=== PATIENT | male | born 1945 | race Caucasian/White ===

== ENCOUNTER 2016-05-31 21:30 | Observation (INO) | payer MEDICARE, MEDICAID ==
[2016-05-31 21:31] VITALS: BMI 29.9
[2016-05-31 22:05] LABS: BASO % 0.8 % (0.0-2.0); EOS # 0.1 K/uL (0.0-0.7); EOS % 3.2 % (0.0-4.0); HEMATOCRIT 37.5 % (35.0-51.0); LYMPH # 1.4 K/uL (1.0-4.3); LYMPH % 32.3 % (20.0-40.0); MEAN CELL VOLUME 77.2 fL (80.0-94.0); MEAN CORPUSCULAR HEMOGLOBIN 25.5 pg (27.0-31.0); MEAN CORPUSCULAR HGB CONC 33.1 g/dL (33.0-37.0); MEAN PLATELET VOLUME 8.7 fL (7.2-11.7); MONO # 0.3 K/uL (0.0-0.8); MONO % 7.5 % (0.0-10.0); NRBC % 0.1 % (0.0-2.0); RED CELL DISTRIBUTION WIDTH 15.4 % (11.5-14.5)
[2016-05-31 22:10] LABS: WHITE BLOOD COUNT 4.4 K/uL (4.8-10.8)
[2016-05-31 22:14] LABS: CHLORIDE 101 mmol/L (98-107); SODIUM 137 mmol/L (132-148)
[2016-05-31 22:15] LABS: INR 3.4; POTASSIUM 3.6 mmol/L (3.6-5.2)
[2016-05-31 22:17] LABS: ALB/GLOB RATIO 1.2 (1.0-2.1); ALKALINE PHOSPHATASE 80 U/L (38-126); AST/SGOT 20 U/L (17-59); BILIRUBIN,TOTAL 0.4 mg/dL (0.2-1.3); BLOOD UREA NITROGEN 16 mg/dL (9-20); CARBON DIOXIDE 22 mmol/L (22-30); GFR AFRICAN-AMERICAN > 60; TOTAL PROTEIN 7.3 g/dL (6.3-8.3)
[2016-05-31 22:18] LABS: ALT/SGPT 28 U/L (21-72); CALCIUM 8.5 mg/dl (8.6-10.4); GLUCOSE,RANDOM 121 mg/dL (75-110)
--- NOTE | 2016-05-31 22:41 | C.PDOC ---
History Of Present Illness Patient is a 70 year old male who presents to the ER with complaints of 8/10 chest pain that radiates to the right arm. Patient was brought in by EMS and was administered Aspirin and sublingual nitroglycerin [employer], which helped the patient's condition. Patient is currently on Coumadin for a history atrial fibrillation. Denies any nausea, vomiting, fever, or chills. Time Seen by Provider: 05/31/16 22:26 Chief Complaint (Nursing): Chest Pain History Per: Patient History/Exam Limitations: no limitations Onset/Duration Of Symptoms: Hrs Current Symptoms Are (Timing): Better (After Asprin and subligual nitroglycerin) Pain Scale Rating Of: 8 Associated Symptoms: denies: Nausea Additional History Per: EMS Past Medical History Reviewed: Historical Data, Nursing Documentation, Vital Signs Vital Signs: Last Vital Signs Temp 98.1 F 05/31/16 21:45 Pulse 81 05/31/16 21:45 Resp 20 05/31/16 21:45 BP 126/68 05/31/16 21:45 Pulse Ox 95 05/31/16 22:59 - Medical History PMH: Atrial Fibrillation, Back Problems (cervical radiculitis), Cardia Arrhythmia, CHF, HTN, Hypercholesterolemia, Hyperlipidemia Surgical History: Pacemaker (atrial ventricular) - [facility] Procedures INSERTION OF ENDOTRACHEAL AIRWAY INTO TRACHEA, VIA OPENING (04/21/15) RESPIRATORY VENTILATION, 24-96 CONSECUTIVE HOURS (04/21/15) Family History: States: Unknown Family Hx - Social History Hx Tobacco Use: No Hx Alcohol Use: No Hx Substance Use: No - Immunization History Hx Tetanus Toxoid Vaccination: No Hx Influenza Vaccination: Yes Hx Pneumococcal Vaccination: Yes Review Of Systems Except As Marked, All Systems Reviewed And Found Negative. Constitutional: Negative for: Fever, Chills Cardiovascular: Positive for: Chest Pain (Radiating to right arm). Negative for : Palpitations Respiratory: Negative for: Shortness of Breath Gastrointestinal: Negative for: Nausea, Vomiting Physical Exam - Physical Exam Appears: Non-toxic Skin: Normal Color, Warm, Dry Head: Atraumatic, Normacephalic Oral Mucosa: Moist Neck: Normal, Normal ROM Chest: Symmetrical, No Deformity, No Tenderness Cardiovascular: Rhythm Regular Respiratory: Normal Breath Sounds, No Accessory Muscle Use, No Rales, No Rhonchi , No Wheezing Gastrointestinal/Abdominal: Soft, No Tenderness, No Distention, No Guarding, No Rebound Neurological/Psych: Oriented x3, Normal Speech, Normal Cognition ED Course And Treatment - Laboratory Results Result Diagrams: 05/31/16 22:02 05/31/16 22:02 Lab Interpretation: Normal (trop neg.) ECG: Interpreted By Me ECG Rhythm: AV Paced (100) ECG Interpretation: Normal O2 Sat by Pulse Oximetry: 95 (Room air) Pulse Ox Interpretation: Normal - Radiology CXR: Interpreted by Me CXR Interpretation: Yes: No Acute Disease Progress Note: Chest X-ray and Blood work ordered and reviewed. Reevaluation Time: 22:40 Reassessment Condition: Improved - Physician Consult Information Outcome Of Conversation: 2230: d/w PMD Dr. Bill red to tele obs. Medical Decision Making Medical Decision Making: CP with relief by nitro, ? angina Disposition Doctor Will See Patient In The: Hospital Counseled Patient/Family Regarding: Studies Performed, Diagnosis - Disposition Disposition: HOSPITALIZED Disposition Time: 22:41 Condition: GOOD - Clinical Impression Clinical Impression: Precordial pain - Scribe Statement The provider has reviewed the documentation as recorded by the Scribkatia Gibbons All medical record entries made by the Scribe were at my direction and personally dictated by me. I have reviewed the chart and agree that the record accurately reflects my personal performance of the history, physical exam, medical decision making, and the department course for this patient. I have also personally directed, reviewed, and agree with the discharge instructions and disposition.
--- NOTE | 2016-05-31 22:45 | C.PDOC ---
History Of Present Illness Patient is a 70 year old male who presents to the ER with an 8/10 chest pain that radiates to the right arm. Patient was brought in by EMS and was administered Aspirin and sublingual nitroglycerin PTO, which helped the patient' s condition. Patient is currently on Coumadin for a history atrial fibrillation. Patient denies any nausea, vomiting, fever, or chills. Time Seen by Provider: 05/31/16 22:26 Chief Complaint (Nursing): Chest Pain History Per: Patient History/Exam Limitations: no limitations Onset/Duration Of Symptoms: Hrs Current Symptoms Are (Timing): Better (Asprin and Sublingual nitroglycerin helped) Pain Scale Rating Of: 8 Associated Symptoms: denies: Nausea Nitro Therapy Administered: Per EMS, Partial Relief Additional History Per: EMS Past Medical History Reviewed: Historical Data, Nursing Documentation, Vital Signs Vital Signs: Last Vital Signs Temp 98.1 F 05/31/16 21:45 Pulse 81 05/31/16 21:45 Resp 20 05/31/16 21:45 BP 126/68 05/31/16 21:45 Pulse Ox 95 05/31/16 22:56 - Medical History PMH: Atrial Fibrillation, Back Problems (cervical radiculitis), Cardia Arrhythmia, CHF, HTN, Hypercholesterolemia, Hyperlipidemia Denies: Chronic Kidney Disease Surgical History: Pacemaker (atrial ventricular) - [facility] Procedures INSERTION OF ENDOTRACHEAL AIRWAY INTO TRACHEA, VIA OPENING (04/21/15) RESPIRATORY VENTILATION, 24-96 CONSECUTIVE HOURS (04/21/15) Family History: States: Unknown Family Hx - Social History Hx Tobacco Use: No Hx Alcohol Use: No Hx Substance Use: No - Immunization History Hx Tetanus Toxoid Vaccination: No Hx Influenza Vaccination: Yes Hx Pneumococcal Vaccination: Yes Review Of Systems Constitutional: Negative for: Fever, Chills Cardiovascular: Positive for: Chest Pain (Radiating to right arm) Gastrointestinal: Negative for: Nausea, Vomiting Physical Exam - Physical Exam Appears: Non-toxic Skin: Normal Color, Warm, Dry Head: Atraumatic, Normacephalic Eye(s): bilateral: Normal Inspection Cardiovascular: Rhythm Regular Respiratory: Normal Breath Sounds, No Accessory Muscle Use, No Rales, No Rhonchi , No Wheezing Gastrointestinal/Abdominal: Soft, No Tenderness, No Distention, No Guarding, No Rebound Extremity: Normal ROM, No Tenderness Neurological/Psych: Oriented x3, Normal Speech, Normal Cognition ED Course And Treatment - Laboratory Results Result Diagrams: 05/31/16 22:02 05/31/16 22:02 O2 Sat by Pulse Oximetry: 94 Progress Note: Chest X-ray was ordered. Disposition - Disposition Disposition Time: 22:41 - Clinical Impression Clinical Impression: Precordial pain - Scribe Statement The provider has reviewed the documentation as recorded by the Scribe Louis Gibbons All medical record entries made by the Scribe were at my direction and personally dictated by me. I have reviewed the chart and agree that the record accurately reflects my personal performance of the history, physical exam, medical decision making, and the department course for this patient. I have also personally directed, reviewed, and agree with the discharge instructions and disposition.
[2016-06-01] MEDS: Albuterol-Ipratrop 3 mg / 0.5 (3 ml) UD INH PRN ×2 (01:40→19:56)
[2016-06-01 06:47] LABS: HEMATOCRIT 36.9 % (35.0-51.0); MEAN CELL VOLUME 78.7 fL (80.0-94.0); MEAN CORPUSCULAR HEMOGLOBIN 25.8 pg (27.0-31.0); MEAN CORPUSCULAR HGB CONC 32.8 g/dL (33.0-37.0); MEAN PLATELET VOLUME 8.8 fL (7.2-11.7); RED CELL DISTRIBUTION WIDTH 15.4 % (11.5-14.5); WHITE BLOOD COUNT 5.5 K/uL (4.8-10.8)
[2016-06-01 07:03] LABS: PHOSPHOROUS 3.5 mg/dL (2.5-4.5)
[2016-06-01 07:08] LABS: INR 3.6
[2016-06-01] MEDS: Pantoprazole 40 mg EC Tab PO SCH (09:26)
[2016-06-01] MEDS ORDERED: DOFETILIDE 250 MCG PO SCH ×2 (10:00→18:00)
--- NOTE | 2016-06-01 10:36 | CP.PCM.PN ---
Subjective - Date & Time of Evaluation Date of Evaluation: 06/01/16 Time of Evaluation: 09:30 - Subjective Subjective: PGY2 Medicine Note - Dr. Cardona's service: Patient seen and evaluated at bedside this AM. Patient talking to Dr. Cardona in Luxembourgish. Patient reports SOB worse at nighttime with associated orthopnea. Patient sitting comfortably in bed eating breakfast. Objective - Vital Signs/Intake and Output Vital Signs (last 24 hours): Temp Pulse Resp BP Pulse Ox 98.4 F 72 18 115/72 100 06/01/16 07:00 06/01/16 07:00 06/01/16 07:00 06/01/16 09:26 06/01/16 07:00 Intake and Output: 06/01/16 06/01/16 06:59 18:59 Output Total 700 Balance -700 - Medications Medications: Current Medications Albuterol/Ipratropium (Duoneb 3 Mg/0.5 Mg (3 Ml) Ud) 3 ml INH Q6H PRN PRN Reason: Shortness of Breath Last Admin: 06/01/16 01:40 Dose: 3 ml Alprazolam (Xanax) 0.5 mg PO BID [facility] Stop: 06/08/16 10:01 Last Admin: 06/01/16 09:25 Dose: 0.5 mg Carvedilol (Coreg) 12.5 mg PO BID [facility] Last Admin: 06/01/16 09:25 Dose: 12.5 mg Enalapril Maleate (Vasotec) 10 mg PO BID [facility] Last Admin: 06/01/16 09:25 Dose: 10 mg Famotidine (Pepcid) 1 mg PO DAILY [facility] Last Admin: 06/01/16 09:21 Dose: Not Given Furosemide (Lasix) 40 mg IVP DAILY [facility] Last Admin: 06/01/16 09:26 Dose: 40 mg Home Med (Dofetilide [Tikosyn]) 250 mcg PO BID [facility] Last Admin: 06/01/16 09:26 Dose: 250 mcg Pantoprazole Sodium (Protonix Ec Tab) 40 mg PO DAILY [facility] Last Admin: 06/01/16 09:26 Dose: 40 mg Rosuvastatin Calcium (Crestor) 5 mg PO DAILY [facility] Last Admin: 06/01/16 09:26 Dose: 5 mg - Labs Labs: 06/01/16 06:39 PT 41.7 SECONDS (9.7-12.2) H* 06/01/16 06:39 INR 3.6 06/01/16 06:39 APTT 50 SECONDS (21-34) H 06/01/16 06:39 - Constitutional Appears: Non-toxic, No Acute Distress - Head Exam Head Exam: NORMAL INSPECTION - Eye Exam Eye Exam: EOMI - ENT Exam ENT Exam: Mucous Membranes Moist - Respiratory Exam Respiratory Exam: Rales (bibasilar), NORMAL BREATHING PATTERN - Cardiovascular Exam Cardiovascular Exam: REGULAR RHYTHM, +S1, +S2. absent: JVD - GI/Abdominal Exam GI & Abdominal Exam: Soft, Normal Bowel Sounds. absent: Distended, Firm, Tenderness - Extremities Exam Extremities Exam: absent: Pedal Edema - Neurological Exam Neurological Exam: Alert, Awake, Oriented x3 - Psychiatric Exam Psychiatric exam: Normal Affect, Normal Mood - Skin Skin Exam: Normal Color, Warm Assessment and Plan - Assessment and Plan (Free Text) Assessment: 1. CHF exacerbation Coreg 12.5mg PO BID Enalapril 10mg PO BID Lasix 40mg IVP daily CXR - left lower lobe congestion 2. COPD Duoneb Q6H PRN 3. Anxiety Xanax 0.5mg PO BID 4. HTN Continue coreg, lasix and enalapril 5. Afib Patient not on coumadin. Will discuss with Dr. Cardona. 6. Prophylaxis Protonix 40mg PO daily Crestor 5mg PO daily
[2016-06-01] MEDS ORDERED: Moxifloxacin IV 400mg/250ml NS 250 ML IVPB SCH (11:30)
[2016-06-01] MEDS: Enoxaparin 40 mg Syringe SC SCH (12:17)
--- NOTE | 2016-06-01 12:18 | CP.PCM.CON ---
History of Present Illness - History of Present Illness History of Present Illness: 70-year-old gentleman with prior history of dilated nonischemic cardiomyopathy. He was on medical treatment in addition to an implantable defibrillator when he developed atrial fibrillation and had ablation twice and is still on anticoagulation. He had Myoview stress test with ejection fraction about 20% and no ischemia late 2015. F[facility] to the [facility] with anxiety atypical pain and shortness of breath. Usually no myocardial infarction and no PE. At this time, he is admitted yet again with similar symptoms in February 2016, he underwent a stress test at [facility] (formerly [facility]) with an ejection fraction of 29% and no ischemia. Follow-up with enzymes and continue observation Review of Systems - Review of Systems Systems not reviewed;Unavailable: Respiratory Distress - Constitutional Constitutional: Anorexia, Weakness - EENT Eyes: absent: Discharge Ears: absent: Decreased Hearing, Ear Discharge, Dizziness Nose/Mouth/Throat: absent: Epistaxis - Cardiovascular Cardiovascular: Chest Pain. absent: Acrocyanosis, Diaphoresis, Leg Edema, Palpitations, Syncope - Respiratory Respiratory: Cough, Dyspnea. absent: Hemoptysis - Gastrointestinal Gastrointestinal: absent: Abdominal Pain, Hematochezia, Melena, Nausea, Vomiting - Genitourinary Genitourinary: absent: Change in Urinary Stream Past Patient History - Infectious Disease Hx of Infectious Diseases: None - Past Medical History & Family History Past Medical History?: Yes - Past Social History Smoking Status: Never Smoked - CARDIAC Hx Atrial Fibrillation: Yes Hx Cardia Arrhythmia: Yes Hx Congestive Heart Failure: Yes Hx Hypercholesterolemia: Yes Hx Hypertension: Yes Hx Pacemaker: Yes (atrial ventricular) - PULMONARY Other/Comment: Coma For 3 days.In May 2015 - NEUROLOGICAL Hx Neurological Disorder: Yes Other/Comment: hs of COMA - HEENT Hx HEENT Problems: No - RENAL Hx Chronic Kidney Disease: No - ENDOCRINE/METABOLIC Hx Endocrine Disorders: No - HEMATOLOGICAL/ONCOLOGICAL Hx Blood Disorders: Yes Hx Hepatitis C: Yes - INTEGUMENTARY Hx Dermatological Problems: No - MUSCULOSKELETAL/RHEUMATOLOGICAL Hx Falls: No - GASTROINTESTINAL Hx Gastrointestinal Disorders: Yes Hx Gastroesophageal Reflux: Yes - GENITOURINARY/GYNECOLOGICAL Hx Genitourinary Disorders: No - PSYCHIATRIC Hx Substance Use: No - SURGICAL HISTORY Hx Surgeries: Yes Hx Cardiac Catheterization: Yes Other/Comment: defibrillator placement 2005,2007,2013.AICD - ANESTHESIA Hx Anesthesia: Yes Hx Anesthesia Reactions: No Hx Malignant Hyperthermia: No Meds Allergies/Adverse Reactions: Allergies Allergy/AdvReac Type Severity Reaction Status Date / Time No Known Allergies Allergy Verified 05/31/16 21:53 - Medications Medications: Current Medications Albuterol/Ipratropium (Duoneb 3 Mg/0.5 Mg (3 Ml) Ud) 3 ml INH Q6H PRN PRN Reason: Shortness of Breath Last Admin: 06/01/16 01:40 Dose: 3 ml Alprazolam (Xanax) 0.5 mg PO BID [facility] Stop: 06/08/16 10:01 Last Admin: 06/01/16 09:25 Dose: 0.5 mg Carvedilol (Coreg) 12.5 mg PO BID [facility] Last Admin: 06/01/16 09:25 Dose: 12.5 mg Enalapril Maleate (Vasotec) 10 mg PO BID [facility] Last Admin: 06/01/16 09:25 Dose: 10 mg Enoxaparin Sodium (Lovenox) 40 mg SC DAILY [facility] Furosemide (Lasix) 40 mg IVP DAILY [facility] Last Admin: 06/01/16 09:26 Dose: 40 mg Home Med (Dofetilide [Tikosyn]) 250 mcg PO BID [facility] Last Admin: 06/01/16 09:26 Dose: 250 mcg Moxifloxacin HCl (Avelox Iv 400mg/250ml Ns) 250 mls @ 167 mls/hr IVPB Q24H [facility] Last Admin: 06/01/16 11:36 Dose: 167 mls/hr Pantoprazole Sodium (Protonix Ec Tab) 40 mg PO DAILY [facility] Last Admin: 06/01/16 09:26 Dose: 40 mg Rosuvastatin Calcium (Crestor) 5 mg PO DAILY [facility] Last Admin: 06/01/16 09:26 Dose: 5 mg Physical Exam - Constitutional Appears: Non-toxic - Head Exam Head Exam: ATRAUMATIC - Eye Exam Eye Exam: EOMI - ENT Exam ENT Exam: Mucous Membranes Moist - Neck Exam Neck exam: Negative for: Lymphadenopathy, Thyromegaly - Respiratory Exam Respiratory Exam: Clear to Auscultation Bilateral, Rhonchi. absent: Rales - Cardiovascular Exam Cardiovascular Exam: REGULAR RHYTHM, Systolic Murmur - GI/Abdominal Exam GI & Abdominal Exam: Normal Bowel Sounds. absent: Organomegaly, Tenderness - Rectal Exam Rectal Exam: Deferred - Extremities Exam Extremities exam: Positive for: normal capillary refill. Negative for: calf tenderness - Neurological Exam Neurological exam: Alert, Oriented x3 - Psychiatric Exam Psychiatric exam: Anxious, Normal Mood - Skin Skin Exam: Dry Results - Vital Signs Recent Vital Signs: Last Vital Signs Temp 98.4 F 06/01/16 07:00 Pulse 72 06/01/16 07:00 Resp 18 06/01/16 07:00 BP 115/72 06/01/16 09:26 Pulse Ox 100 06/01/16 07:00 - Labs Result Diagrams: 06/01/16 06:39 05/31/16 22:02 Labs: Laboratory Results - last 24 hr 06/01/16 06:39 WBC 5.5 RBC 4.69 Hgb 12.1 Hct 36.9 MCV 78.7 L MCH 25.8 L MCHC 32.8 L RDW 15.4 H Plt Count 152 MPV 8.8 PT 41.7 H* INR 3.6 APTT 50 H Phosphorus 3.5 Magnesium 2.0 Assessment & Plan (1) Chest pain Status: Acute Comment: Unlikely PE or dissection clinically, follow-up with enzymes (2) Anxiety Status: Acute (3) Acute exacerbation of CHF (congestive heart failure) Status: Acute Comment: 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
--- NOTE | 2016-06-01 14:28 | RAD ---
HISTORY: adm for cp COMPARISON: Comparison chest 04/23/2016. . FINDINGS: LUNGS: There may be some minor left basilar atelectasis. Previous noted mild venous congestive changes slightly improved. PLEURA: No apparent pneumothorax. CARDIOVASCULAR: Cardiomegaly. . Mild aneurysmal dilatation of the ascending thoracic aorta. . No change multi lead pacemaker/defibrillator OSSEOUS STRUCTURES: No significant abnormalities. VISUALIZED UPPER ABDOMEN: Normal. OTHER FINDINGS: None. IMPRESSION: Suspect minor left basilar atelectasis. Previously noted mild venous congestive changes slightly improved. Cardiomegaly. Mild aneurysmal dilatation of the ascending thoracic aorta.
[2016-06-01] MEDS: Hydrocortisone 2.5% Rectal Cream(30 gm) PR SCH (21:48)
[2016-06-01] MEDS: guaiFENesin DM 100 mg-10 mg/5 ml UD PO SCH (22:41)
[2016-06-02] VITALS: O2SAT 97
[2016-06-02 07:16] LABS: BASO % 0.8 % (0.0-2.0); EOS # 0.2 K/uL (0.0-0.7); EOS % 3.3 % (0.0-4.0); HEMATOCRIT 38.4 % (35.0-51.0); LYMPH # 1.8 K/uL (1.0-4.3); LYMPH % 35.7 % (20.0-40.0); MEAN CELL VOLUME 78.2 fL (80.0-94.0); MEAN CORPUSCULAR HEMOGLOBIN 25.5 pg (27.0-31.0); MEAN CORPUSCULAR HGB CONC 32.6 g/dL (33.0-37.0); MEAN PLATELET VOLUME 8.9 fL (7.2-11.7); MONO # 0.5 K/uL (0.0-0.8); MONO % 9.5 % (0.0-10.0); NRBC % 0.1 % (0.0-2.0); RED CELL DISTRIBUTION WIDTH 15.2 % (11.5-14.5)
[2016-06-02 07:47] LABS: CHLORIDE 98 mmol/L (98-107)
[2016-06-02 07:48] LABS: POTASSIUM 3.8 mmol/L (3.6-5.2); SODIUM 140 mmol/L (132-148)
[2016-06-02 07:50] LABS: AST/SGOT 20 U/L (17-59); BILIRUBIN,TOTAL 0.6 mg/dL (0.2-1.3); CARBON DIOXIDE 28 mmol/L (22-30); GFR AFRICAN-AMERICAN > 60
[2016-06-02 07:51] LABS: ALB/GLOB RATIO 1.2 (1.0-2.1); ALKALINE PHOSPHATASE 73 U/L (38-126); ALT/SGPT 19 U/L (21-72); BLOOD UREA NITROGEN 18 mg/dL (9-20); CALCIUM 8.8 mg/dl (8.6-10.4); GLUCOSE,RANDOM 90 mg/dL (75-110); TOTAL PROTEIN 7.4 g/dL (6.3-8.3)
[2016-06-02 08:28] VITALS: BP 116/69; PULSE 70; RESP 19; TEMP 97.6
--- NOTE | 2016-06-02 09:35 | HP ---
The patient admitted to the hospital with the chief complaint of shortness of breath, palpitations, w eakness, headache. The patient came to the ER advised admission to the hospital. PAST MEDICAL HISTORY: Congestive heart failure, cardiac arrhythmia, COPD. The patient is a smoker. MEDICATIONS: Lasix, DuoNeb. PHYSICAL EXAMINATION: GENERAL: The patient is awake, alert . VITAL SIGNS: Temperature is 98, pulse 90. HEENT: Within normal limits. NECK: Supple. CHEST: Symmetrical. HEART: Regular. ABDOMEN: Soft. EXTREMITIES: No edema. The patient suffers from congestive heart failure, cardiac arrhythmia. The patient bedrest, supporti ve care. Sofia Richardson MD cc: [phone] TT: 06/01/2016 11:59:00 ne 06/02/2016 08:33:21
--- NOTE | 2016-06-02 09:50 | CP.PCM.PN ---
Subjective - Date & Time of Evaluation Date of Evaluation: 06/02/16 Time of Evaluation: 07:20 - Subjective Subjective: PGY2 Medicine Note - Dr. Cardona's service: Patient seen and evaluated at bedside this AM. Patient reports SOB improving. Patient sitting comfortably in bed. Patient denies chest pain, abdominal pain, nausea, vomiting, diarrhea, dysuria. Objective - Vital Signs/Intake and Output Vital Signs (last 24 hours): Temp Pulse Resp BP Pulse Ox 97.6 F 70 19 116/69 97 06/02/16 07:00 06/02/16 07:00 06/02/16 07:00 06/02/16 07:00 06/02/16 07:00 Intake and Output: 06/02/16 06/02/16 06:59 18:59 Intake Total 100 200 Balance 100 200 - Medications Medications: Current Medications Albuterol/Ipratropium (Duoneb 3 Mg/0.5 Mg (3 Ml) Ud) 3 ml INH Q6H PRN PRN Reason: Shortness of Breath Last Admin: 06/01/16 19:56 Dose: 3 ml Alprazolam (Xanax) 0.5 mg PO BID [facility] Stop: 06/08/16 10:01 Last Admin: 06/01/16 17:51 Dose: 0.5 mg Carvedilol (Coreg) 12.5 mg PO BID [facility] Last Admin: 06/01/16 17:51 Dose: 12.5 mg Enalapril Maleate (Vasotec) 10 mg PO BID [facility] Last Admin: 06/01/16 17:50 Dose: 10 mg Enoxaparin Sodium (Lovenox) 40 mg SC DAILY [facility] Last Admin: 06/01/16 12:17 Dose: 40 mg Furosemide (Lasix) 40 mg IVP DAILY [facility] Last Admin: 06/01/16 09:26 Dose: 40 mg Guaifenesin/Dextromethorphan (Robitussin Dm) 5 ml PO QID [facility] Last Admin: 06/01/16 22:41 Dose: 5 ml Home Med (Dofetilide [Tikosyn]) 250 mcg PO BID [facility] Hydrocortisone (Anusol-Hc) 0 gm DE BID [facility] Last Admin: 06/01/16 21:48 Dose: 1 applic Moxifloxacin HCl (Avelox Iv 400mg/250ml Ns) 250 mls @ 167 mls/hr IVPB Q24H [facility] Last Admin: 06/01/16 11:36 Dose: 167 mls/hr Ondansetron HCl (Zofran Inj) 4 mg IVP Q6H PRN PRN Reason: Nausea/Vomiting Pantoprazole Sodium (Protonix Ec Tab) 40 mg PO DAILY [facility] Last Admin: 06/01/16 09:26 Dose: 40 mg Rosuvastatin Calcium (Crestor) 5 mg PO HS [facility] - Labs Labs: 06/02/16 07:04 06/02/16 07:04 PT 34.3 SECONDS (9.7-12.2) H* D 06/02/16 07:04 INR 3.0 06/02/16 07:04 APTT 50 SECONDS (21-34) H 06/01/16 06:39 - Constitutional Appears: Non-toxic, No Acute Distress - Head Exam Head Exam: NORMAL INSPECTION - Eye Exam Eye Exam: EOMI - ENT Exam ENT Exam: Mucous Membranes Moist - Respiratory Exam Respiratory Exam: Clear to Ausculation Bilateral, NORMAL BREATHING PATTERN. absent: Rales, Rhonchi, Wheezes - Cardiovascular Exam Cardiovascular Exam: REGULAR RHYTHM, +S1, +S2. absent: Gallop, JVD, Rubs, Murmur - GI/Abdominal Exam GI & Abdominal Exam: Soft, Normal Bowel Sounds. absent: Distended, Firm, Tenderness - Extremities Exam Extremities Exam: Normal Capillary Refill. absent: Pedal Edema - Neurological Exam Neurological Exam: Alert, Oriented x3 - Psychiatric Exam Psychiatric exam: Normal Affect, Normal Mood - Skin Skin Exam: Normal Color, Warm Assessment and Plan - Assessment and Plan (Free Text) Assessment: 1. CHF exacerbation Coreg 12.5mg PO BID Enalapril 10mg PO BID Lasix 40mg IVP daily CXR - left lower lobe congestion ROMIs neg x2 F/U 3rd gianna Cardio consult - Dr. Allen- help appreciated 2. COPD Duoneb Q6H PRN 3. Anxiety Xanax 0.5mg PO BID 4. HTN Continue coreg, lasix and enalapril 5. Afib Coumadin 10mg PO daily at home. INR was elevated at 3.6 yesterday Now INR is 3.0 Will resume coumadin at a lower dose. Will discuss with Dr. Cardona 6. Prophylaxis Protonix 40mg PO daily Crestor 5mg PO daily
[2016-06-02] MEDS: Pantoprazole 40 mg EC Tab PO SCH (10:35)
[2016-06-02] MEDS: guaiFENesin DM 100 mg-10 mg/5 ml UD PO SCH (10:35)
[2016-06-02] MEDS: Hydrocortisone 2.5% Rectal Cream(30 gm) PR SCH (10:36)
[2016-06-02] MEDS: Enoxaparin 40 mg Syringe SC SCH (10:36)
--- NOTE | 2016-06-02 16:43 | PCM.HF ---
Heart Failure Core Measure - Heart Failure Ejection Fraction: 40 % or Greater PEPPER Inhibitor Prescribed: Yes Beta-Fariba Prescribed: Carvedilol Angiotensin II Receptor Fariba Prescribed: No Contraindication/Reason for not providing: on PEPPER AnticoagulationTherapy for Atrial Fibrillation/Atrialflutter: Yes Aldosterone Antagonist Prescribed: No Contraindication/Reason for not providing: ef>45 Hydralazine Nitrate Prescribed: No Contraindication/Reason for not providing: ef>45 Implantable Cardioverter Defibrillator Therapy: Yes Contraindication/Reason for not providing: PT HAS PACE MAKER/ EF >45 Cardiac Resynchronization Therapy Prescribed: No Contraindication/Reason for not providing: EF>45 and not indicated , pt has Pacemaker - Follow up Will be discharged to: Home Follow Up Date (must be within 7 days from discharge): 06/05/16 Follow Up Time: 09:00
--- NOTE | 2016-06-02 16:53 | CP.PCM.PN ---
Subjective - Date & Time of Evaluation Date of Evaluation: 06/02/16 Time of Evaluation: 12:00 - Subjective Subjective: NAD no further SOB f/u as outpt Objective - Vital Signs/Intake and Output Vital Signs (last 24 hours): Temp Pulse Resp BP Pulse Ox 97.6 F 70 19 116/69 97 06/02/16 07:00 06/02/16 07:00 06/02/16 07:00 06/02/16 10:36 06/02/16 07:00 Intake and Output: 06/02/16 06/02/16 06:59 18:59 Intake Total 100 200 Balance 100 200 - Labs Labs: 06/02/16 07:04 06/02/16 07:04 PT 34.3 SECONDS (9.7-12.2) H* D 06/02/16 07:04 INR 3.0 06/02/16 07:04 APTT 50 SECONDS (21-34) H 06/01/16 06:39 - Constitutional Appears: Non-toxic - Head Exam Head Exam: ATRAUMATIC - Eye Exam Eye Exam: EOMI - ENT Exam ENT Exam: Mucous Membranes Moist - Neck Exam Neck Exam: absent: Lymphadenopathy, Thyromegaly - Respiratory Exam Respiratory Exam: Clear to Ausculation Bilateral. absent: Rales - Cardiovascular Exam Cardiovascular Exam: REGULAR RHYTHM, Murmur - GI/Abdominal Exam GI & Abdominal Exam: Normal Bowel Sounds. absent: Organomegaly - Rectal Exam Rectal Exam: Deferred - Extremities Exam Extremities Exam: Normal Capillary Refill. absent: Calf Tenderness - Neurological Exam Neurological Exam: Alert, Oriented x3 - Psychiatric Exam Psychiatric exam: Anxious - Skin Skin Exam: Dry Assessment and Plan (1) Chest pain Status: Acute (2) Anxiety Status: Acute (3) Acute exacerbation of CHF (congestive heart failure) Status: Acute (4) Atrial fibrillation and flutter Status: Chronic (5) Creatinine elevation Status: Chronic (6) Hypertension Status: Chronic
--- NOTE | 2016-06-03 07:58 | CARD ---
APPROVED REPORT EKG Measurement Heart [id number] <Conclusion> Atrial-sensed ventricular-paced rhythm Abnormal ECG
== END 2016-06-02 13:05 | disposition home or self-care (01) ==
LOC: C.ER 21:30 → C.9E 22:38 → C.9I 06-01 01:00 → C.5T 06-01 15:39
PROVIDERS: ADMIT Internal Medicine Pulmonary Disease; ATTEND Internal Medicine Pulmonary Disease
DX: I11.0 Hypertensive heart disease with heart failure (principal); I50.9 Heart failure, unspecified; E78.5 Hyperlipidemia, unspecified; F41.9 Anxiety disorder, unspecified; I48.91 Unspecified atrial fibrillation; J44.9 Chronic obstructive pulmonary disease, unspecified; F17.210 Nicotine dependence, cigarettes, uncomplicated
CPT/HCPCS: 71010; 80053; 83735; 84100; 84484; 85025; 85027; 85610; 85730; 87081; 94640; 96374; 99285; G0378; J1650; J1940; J2280

== ENCOUNTER 2017-02-10 15:54 | Inpatient (IN) | payer MEDICARE, MEDICAID ==
[2017-02-10 15:54] VITALS: BMI 25.8
[2017-02-10 16:53] LABS: VENOUS BLOOD GAS BASE EXCESS -0.4 mmol/L (0.0-2.0); VENOUS BLOOD GAS PCO2 33 mmHg (40-60); VENOUS BLOOD PH 7.45 (7.32-7.43)
[2017-02-10 16:56] LABS: BASO % 0.5 % (0.0-2.0); EOS # 0.1 K/uL (0.0-0.7); EOS % 1.2 % (0.0-4.0); HEMATOCRIT 36.1 % (35.0-51.0); LYMPH # 2.3 K/uL (1.0-4.3); LYMPH % 28.9 % (20.0-40.0); MEAN CELL VOLUME 81.8 fL (80.0-94.0); MEAN CORPUSCULAR HEMOGLOBIN 27.5 pg (27.0-31.0); MEAN CORPUSCULAR HGB CONC 33.6 g/dL (33.0-37.0); MEAN PLATELET VOLUME 9.9 fL (7.2-11.7); MONO # 0.6 K/uL (0.0-0.8); MONO % 7.4 % (0.0-10.0); RED CELL DISTRIBUTION WIDTH 17.3 % (11.5-14.5)
--- NOTE | 2017-02-10 17:00 | C.PDOC ---
History Of Present Illness 71 y/o male sent to ED from [facility] for increased confusion, fever and low blood pressure. Patient is confused at baseline but was noted to be more confused. No reports of cough, vomiting, sob or diarrhea at this time. Time Seen by Provider: 02/10/17 16:32 Chief Complaint (Nursing): Altered Mental Status History Per: Patient, EMS History/Exam Limitations: None Onset/Duration Of Symptoms: Days Current Symptoms Are (Timing): Still Present Past Medical History Reviewed: Historical Data, Nursing Documentation, Vital Signs Vital Signs: Last Vital Signs Temp 101.1 F H 02/10/17 16:07 Pulse 74 02/10/17 17:00 Resp 16 02/10/17 17:00 BP 111/72 02/10/17 17:00 Pulse Ox 95 02/10/17 17:04 - Medical History PMH: Arthritis (BACK), Asthma, Atrial Fibrillation, Back Problems (cervical radiculitis), Cardia Arrhythmia, CHF, COPD, HTN, Hypercholesterolemia, Hyperlipidemia Surgical History: Pacemaker (Aicd) - [facility] Procedures ASSISTANCE WITH RESPIRATORY VENTILATION, >96 HRS, CPAP (12/23/16) FLUOROSCOPY OF LEFT HEART USING OTHER CONTRAST (01/07/17) FLUOROSCOPY OF MULTIPLE CORONARY ARTERIES USING OTH CONTRAST (01/07/17) INSERTION OF ENDOTRACHEAL AIRWAY INTO TRACHEA, VIA OPENING (04/21/15) MEASURE OF CARDIAC SAMPL & PRESSURE, L HEART, PERC APPROACH (01/07/17) RESPIRATORY VENTILATION, 24-96 CONSECUTIVE HOURS (04/21/15) Family History: States: No Known Family Hx - Social History Hx Tobacco Use: No Hx Alcohol Use: No Hx Substance Use: No - Immunization History Hx Tetanus Toxoid Vaccination: No Hx Influenza Vaccination: Yes Hx Pneumococcal Vaccination: Yes Review Of Systems Constitutional: Negative for: Fever, Chills Cardiovascular: Negative for: Chest Pain Respiratory: Negative for: Cough, Shortness of Breath Gastrointestinal: Negative for: Vomiting, Diarrhea Neurological: Positive for: Confusion Physical Exam - Physical Exam Appears: Non-toxic, No Acute Distress Skin: Normal Color, Warm, Dry, No Rash, No Mottled Head: Atraumatic, Normacephalic Eye(s): bilateral: Normal Inspection, PERRL, EOMI Oral Mucosa: Moist Neck: Supple Cardiovascular: Rhythm Regular, Other (Tachycardic) Respiratory: No Rales, No Rhonchi, No Wheezing, Other (Shallow breaths) Gastrointestinal/Abdominal: Soft, No Tenderness, No Guarding, No Rebound Extremity: Normal ROM, No Pedal Edema, Capillary Refill (<2 seconds) Neurological/Psych: Oriented x3, No Response To Commands, Other (not communicative) ED Course And Treatment - Laboratory Results Result Diagrams: 02/10/17 16:49 Lab Interpretation: No Acute Changes O2 Sat by Pulse Oximetry: 95 (RA) Pulse Ox Interpretation: Normal - Radiology CXR: Interpreted by Me CXR Interpretation: Yes: No Acute Disease Reevaluation Time: 17:16 Reassessment Condition: Improved (BP better after IV fluids) - Physician Consult Information Time Consulting Physician Contacted: 17:16 Physician Contacted: Sofia Cardona Outcome Of Conversation: Patient is well known to him. He has had episodes like this in the past with fever and increased confusion but no focus of infection. He has a normally low blood pressure. Will treat with IV antibiotics and fluids. Disposition - Disposition Disposition: HOSPITALIZED Disposition Time: 17:19 Condition: IMPROVED - POA Present On Arrival: None - Clinical Impression Clinical Impression: Fever, Confusion - Scribe Statement The provider has reviewed the documentation as recorded by the Neryibkatia Wilder All medical record entries made by the Neryibkatia were at my direction and personally dictated by me. I have reviewed the chart and agree that the record accurately reflects my personal performance of the history, physical exam, medical decision making, and the department course for this patient. I have also personally directed, reviewed, and agree with the discharge instructions and disposition.
[2017-02-10 17:04] LABS: RBC URINE 2 /hpf (0-3); TRANSITIONAL EPITHIAL 1 /hpf (0-3); URINE BACTERIA RARE (<OCC); URINE BILIRUBIN NEGATIVE (NEGATIVE); URINE BLOOD NEGATIVE (NEGATIVE); URINE COLOR Amber (YELLOW); URINE GLUCOSE (UA) NORMAL (Normal); URINE KETONE NEGATIVE (NEGATIVE); URINE LEUKOCYTE ESTERASE NEG Leu/uL (Negative); URINE PROTEIN NEGATIVE (NEGATIVE); WBC URINE 5 /hpf (0-5)
[2017-02-10 17:12] LABS: INR 1.6
--- NOTE | 2017-02-10 17:16 | RAD ---
HISTORY: Sepsis Patient COMPARISON: 01/07/2017 FINDINGS: LUNGS: The lungs are well inflated and clear. PLEURA: No significant pleural effusion identified, no pneumothorax apparent. CARDIOVASCULAR: There is moderate cardiomegaly. OSSEOUS STRUCTURES: No significant abnormalities. VISUALIZED UPPER ABDOMEN: Normal. OTHER FINDINGS: None. IMPRESSION: No active pulmonary disease.
[2017-02-10 17:17] LABS: BILIRUBIN,TOTAL 1.8 mg/dL (0.2-1.3); GFR AFRICAN-AMERICAN > 60; GLUCOSE,RANDOM 88 mg/dL (75-110)
[2017-02-10] MEDS ORDERED: Cefepime IV 1 gm in Dextrose 1 GM/50 ML BAG IVPB STA (17:22)
[2017-02-10 17:28] LABS: ALB/GLOB RATIO 1.2 (1.0-2.1); ALKALINE PHOSPHATASE 62 U/L (38-126); ALT/SGPT 41 U/L (21-72); AST/SGOT 34 U/L (17-59); BLOOD UREA NITROGEN 22 mg/dL (9-20); CARBON DIOXIDE 26 mmol/L (22-30); CHLORIDE 102 mmol/L (98-107); MAGNESIUM 1.9 mg/dL (1.6-2.3); PHOSPHOROUS 3.1 mg/dL (2.5-4.5); POTASSIUM 3.9 mmol/L (3.6-5.2); SODIUM 133 mmol/L (132-148); TOTAL PROTEIN 6.3 g/dL (6.3-8.3)
[2017-02-10] MEDS ORDERED: MIDODRINE HCL 10 MG PO PRN (22:58)
[2017-02-11] MEDS ORDERED: Vancomycin 500mg/D5W 100 ml 0 MG/0 ML BAG IVPB ONE (08:23)
[2017-02-11] MEDS: Fluticasone-Salmeterol 250-50mcg Diskus IH SCH ×2 (09:56→19:05)
[2017-02-11] MEDS ORDERED: PROTEIN HYDR PO SCH (10:00)
[2017-02-11] MEDS ORDERED: AMINO AC PO SCH (10:00)
[2017-02-11] MEDS ORDERED: NUTRITIONAL SUPPLEMENT PO SCH (10:00)
[2017-02-11] MEDS ORDERED: WHEY PRO PO SCH (10:00)
[2017-02-11] MEDS ORDERED: Potassium Chloride 20 mEq ER Tab PO SCH (10:00)
[2017-02-11 11:38] LABS: ALB/GLOB RATIO 0.9 (1.0-2.1); ALKALINE PHOSPHATASE 54 U/L (38-126); ALT/SGPT 40 U/L (21-72); AST/SGOT 19 U/L (17-59); BILIRUBIN,TOTAL 1.1 mg/dL (0.2-1.3); BLOOD UREA NITROGEN 16 mg/dL (9-20); CALCIUM 6.9 mg/dl (8.6-10.4); CARBON DIOXIDE 22 mmol/L (22-30); CHLORIDE 110 mmol/L (98-107); GFR AFRICAN-AMERICAN > 60; GLUCOSE,RANDOM 66 mg/dL (75-110); POTASSIUM 3.1 mmol/L (3.6-5.2); SODIUM 134 mmol/L (132-148); TOTAL PROTEIN 5.8 g/dL (6.3-8.3)
[2017-02-11] MEDS ORDERED: Potassium Chloride 20 mEq/15 ml LIQ UD PO ONE (11:47)
[2017-02-11] MEDS ORDERED: Fluconazole IV 200mg/100 ml NS 100 MG in Premixed IV 1 EA IVPB SCH (12:30)
[2017-02-11] MEDS: Fluconazole IV 200mg/100 ml NS 100 MG in Premixed IV 1 EA IVPB SCH (13:48)
--- NOTE | 2017-02-11 16:43 | CP.PCM.PN ---
Subjective - Date & Time of Evaluation Date of Evaluation: 02/11/17 Time of Evaluation: 10:00 - Subjective Subjective: PGY3 on medicine Dr. Cardona service: Pt seen and examined at bedside this morning. 71M PMHx afib, HTN, CHF s/p ICD here due to increased confusion. He had Myoview stress test with ejection fraction about 20% and no ischemia 2016. Recent stress test here showed ef of 29 percent and no ischemia. Pt also with fever and low pressure. Per record, there was no report of cough, vomiting, SOB or diarrhea. Pt has no complaints per conversation with Dr. Cardona, though pt was confused baseline. PMH: A fib, CHF, HTN, dilated cardiomyopathy PSH: ICD Allergies: NKDA FH: Non contributory Social hx: From [place]. Denies smoking, drinking, drug use. Objective - Vital Signs/Intake and Output Vital Signs (last 24 hours): Temp Pulse Resp BP Pulse Ox 98.9 F 78 16 111/65 99 02/11/17 08:42 02/11/17 11:35 02/11/17 11:35 02/11/17 11:35 02/11/17 11:35 Intake and Output: 02/11/17 02/11/17 06:59 18:59 Output Total 900 Balance -900 - Medications Medications: Current Medications Acetaminophen (Tylenol 325mg Tab) 650 mg PO Q6 PRN PRN Reason: Fever >100.4 F Apixaban (Eliquis) 2.5 mg PO BID [facility] Last Admin: 02/11/17 09:59 Dose: 2.5 mg Aspirin (Aspirin Chewable) 81 mg PO DAILY [facility] Last Admin: 02/11/17 09:58 Dose: 81 mg Carvedilol (Coreg) 12.5 mg PO BID [facility] Last Admin: 02/11/17 10:17 Dose: 12.5 mg Clopidogrel Bisulfate (Plavix) 75 mg PO DAILY [facility] Last Admin: 02/11/17 10:18 Dose: 75 mg Famotidine (Pepcid) 20 mg PO DAILY [facility] Last Admin: 02/11/17 10:18 Dose: 20 mg Furosemide (Lasix) 20 mg PO DAILY [facility] Last Admin: 02/11/17 10:18 Dose: 20 mg Cefepime HCl 1 gm/ Dextrose 50 mls @ 100 mls/hr IVPB Q12H [facility] Last Admin: 02/11/17 12:24 Dose: 100 mls/hr Vancomycin HCl 1,000 mg/ (Sodium Chloride) 250 mls @ 166.6 mls/hr IVPB Q12H [facility] Last Admin: 02/11/17 10:18 Dose: 166.6 mls/hr Fluconazole 100 mg/ (Miscellaneous) 50 mls @ 100 mls/hr IVPB Q24H [facility] Last Admin: 02/11/17 13:48 Dose: 100 mls/hr Lisinopril (Zestril) 10 mg PO DAILY [facility] Last Admin: 02/11/17 10:18 Dose: 10 mg Midodrine (Proamatine) 10 mg PO Q8 [facility] Montelukast Sodium (Singulair) 10 mg PO HS [facility] Pneumococcal Polyvalent Vaccine (Pneumovax 23 Vaccine) 0.5 ml IM .ONCE ONE Stop: 02/14/17 10:01 Potassium Chloride (K-Dur 20 Meq Er Tab) 20 meq PO DAILY [facility] Last Admin: 02/11/17 10:17 Dose: 20 meq Rosuvastatin Calcium (Crestor) 20 mg PO HS [facility] Fluticasone/Salmeterol (Advair Diskus 250/50) 1 puff IH RQ12 [facility] Last Admin: 02/11/17 09:56 Dose: 1 puff - Labs Labs: 02/10/17 16:49 02/11/17 10:47 PT 18.6 SECONDS (9.7-12.2) H 02/10/17 16:49 INR 1.6 02/10/17 16:49 APTT 32 SECONDS (21-34) 02/10/17 16:49 - Constitutional Appears: Non-toxic, No Acute Distress, Chronically Ill - Head Exam Head Exam: NORMOCEPHALIC - Eye Exam Eye Exam: Normal appearance - ENT Exam Additional comments: oral thrush - Respiratory Exam Respiratory Exam: Clear to Ausculation Bilateral, NORMAL BREATHING PATTERN. absent: Wheezes - Cardiovascular Exam Cardiovascular Exam: REGULAR RHYTHM, +S1, +S2. absent: Gallop, Rubs - GI/Abdominal Exam GI & Abdominal Exam: Soft, Normal Bowel Sounds. absent: Tenderness - Extremities Exam Extremities Exam: Pedal Edema - Neurological Exam Neurological Exam: Alert, Awake. absent: Oriented x3 - Psychiatric Exam Psychiatric exam: Normal Mood - Skin Skin Exam: Intact Assessment and Plan - Assessment and Plan (Free Text) Assessment: Fever Recorded 101.1 last night. Cefepime 1g IV q12H started 02/11. Vancomycin 1000mg IV q12H. started 02/11. Tylenol PRN. F/U blood culture. Oral thrush Pt was able to swallow water in ED. Diflucan 100mg IV daily started 02/11. F/U hep panel and HIV. F/U speech and swallow evaluation. CHF Continue Coreg 12.5mg PO BID, Lasix 20mg PO daily, midodrine 10mg PO q8H and Lisinopril 10mg PO daily. Hx of CAD Continue ASA 81mg PO daily, Crestor 20mg PO HS, Eliquis 2.5mg PO BID, Plavix 75mg PO daily. COPD Continue Advair, Singulair. Prophylactic measure Pepcid, Eliquis/Plavix. SCD contraindicated for fall risk. PT/OT. Management as per Dr. Cardona
--- NOTE | 2017-02-11 19:00 | CP.PCM.CON ---
History of Present Illness - History of Present Illness History of Present Illness: 71 y/o male sent to ED from [facility] for increased confusion, fever and low blood pressure. Patient is confused at baseline but was noted to be more confused. No reports of cough, vomiting, sob or diarrhea at this time. septic work up done IV rx ordered empirically - Medical History PMH: Arthritis (BACK), Asthma, Atrial Fibrillation, Back Problems (cervical radiculitis), Cardia Arrhythmia, CHF, COPD, HTN, Hypercholesterolemia, Hyperlipidemia Surgical History: Pacemaker (Aicd) - [facility] Procedures ASSISTANCE WITH RESPIRATORY VENTILATION, >96 HRS, CPAP (12/23/16) FLUOROSCOPY OF LEFT HEART USING OTHER CONTRAST (01/07/17) FLUOROSCOPY OF MULTIPLE CORONARY ARTERIES USING OTH CONTRAST (01/07/17) INSERTION OF ENDOTRACHEAL AIRWAY INTO TRACHEA, VIA OPENING (04/21/15) MEASURE OF CARDIAC SAMPL & PRESSURE, L HEART, PERC APPROACH (01/07/17) RESPIRATORY VENTILATION, 24-96 CONSECUTIVE HOURS (04/21/15) Review of Systems - Constitutional Constitutional: As Per HPI, Anorexia, Fever, Malaise - EENT Eyes: absent: As Per HPI, Blind Spots, Blurred Vision, Change in Vision, Decreased Night Vision, Diplopia, Discharge, Dry Eye, Exophthalmos, Floaters, Irritation, Itchy Eyes, Loss of Peripheral Vision, Pain, Photophobia, Requires Corrective Lenses, Sees Flashes, Spots in Vision, Tunnel Vision, Other Visual Disturbances, Loss of Vision, Other Ears: absent: As Per HPI, Decreased Hearing, Ear Discharge, Ear Pain, Tinnitus, Abnormal Hearing, Disequilibrium, Dizziness, Other Nose/Mouth/Throat: absent: As Per HPI, Epistaxis, Nasal Congestion, Nasal Discharge, Nasal Obstruction, Nasal Trauma, Nose Pain, Post Nasal Drip, Sinus Pain, Sinus Pressure, Bleeding Gums, Change in Voice, Dental Pain, Dry Mouth, Dysphagia, Halitosis, Hoarsness, Lip Swelling, Mouth Lesions, Mouth Pain, Odynophagia, Sore Throat, Throat Swelling, Tongue Swelling, Facial Pain, Neck Pain, Neck Mass, Other - Cardiovascular Cardiovascular: absent: As Per HPI, Acrocyanosis, Chest Pain, Chest Pain at Rest , Chest Pain with Activity, Claudication, Diaphoresis, Dyspnea, Dyspnea on Exertion, Edema, Irregular Heart Rhythm, Pain Radiating to Arm/Neck/Jaw, Leg Edema, Leg Ulcers, Lightheadedness, Orthopnea, Palpitations, Paroxysmal Nocturnal Dyspnea, Pedal Edema, Radiating Pain, Rapid Heart Rate, Slow Heart Rate, Syncope, Other - Respiratory Respiratory: absent: As Per HPI, Cough, Dyspnea, Hemoptysis, Dyspnea on Exertion , Wheezing, Snoring, Stridor, Pain on Inspiration, Chest Congestion, Excessive Mucous Production, Change in Mucous Color, Pain with Coughing, Other - Gastrointestinal Gastrointestinal: absent: As Per HPI, Abdominal Pain, Belching, Bloating, Change in Bowel Habits, Change in Stool Character, Coffee Ground Emesis, Constipation, Cramping, Diarrhea, Dyspepsia, Dysphagia, Early Satiety, Excessive Flatus, Fecal Incontinence, Heartburn, Hematemesis, Hematochezia, Loose Stools, Melena, Nausea, Odynophagia, Temesmus, Vomiting, Other - Genitourinary Genitourinary: As Per HPI - Musculoskeletal Musculoskeletal: As Per HPI - Integumentary Integumentary: absent: As Per HPI, Acne, Alopecia, Bleeding Lesions, Change in Hair, Change in Nails, Change in Pigmentation, Changing Lesions, Dry Skin, Erythema, Furuncle, Hirsutism, Lesions, New Lesions, Non-Healing Lesions, Photosensitivity, Pruritus, Rash, Skin Pain, Skin Ulcer, Sores, Striae, Swelling , Unusual Bruising, Wounds, Jaundice, Other - Neurological Neurological: As Per HPI - Psychiatric Psychiatric: absent: As Per HPI, Abnormal Sleep Pattern, Anhedonia, Anxiety, Auditory Hallucinations, Behavioral Changes, Change in Appetite, Change in Libido, Confusion, Depression, Difficulty Concentrating, Hallucinations, Homicidal Ideation, Hopelessness, Irritability, Memory Loss, Mood Swings, Panic Attacks, Paranoia, Suicidal Ideation, Visual Hallucinations, Tactile Hallucinations, Other - Endocrine Endocrine: absent: As Per HPI, Change in Body Appearance, Change in Libido, Cold Intolorance, Deepening of Voice, Excessive Sweating, Fatigue, Flushing, Heat Intolorance, Increase in Ring/Shoe/Hat Size, Palpitations, Polydipsia, Polyphagia, Polyuria, Other - Hematologic/Lymphatic Hematologic: absent: As Per HPI, Easy Bleeding, Easy Bruising, Lymphadenopathy, Other Past Patient History - Infectious Disease Hx of Infectious Diseases: None - Past Medical History & Family History Past Medical History?: Yes - Past Social History Smoking Status: Never Smoked - CARDIAC Hx Congestive Heart Failure: Yes Hx Hypercholesterolemia: Yes Hx Hypertension: Yes - PULMONARY Hx Chronic Obstructive Pulmonary Disease (COPD): Yes - NEUROLOGICAL Hx Neurological Disorder: Yes Other/Comment: hx of COMA - HEENT Hx HEENT Problems: No - RENAL Hx Chronic Kidney Disease: No - ENDOCRINE/METABOLIC Hx Endocrine Disorders: No - HEMATOLOGICAL/ONCOLOGICAL Hx Blood Disorders: Yes Hx Hepatitis C: Yes - INTEGUMENTARY Hx Dermatological Problems: No - MUSCULOSKELETAL/RHEUMATOLOGICAL Hx Arthritis: Yes Hx Falls: No - GASTROINTESTINAL Hx Gastrointestinal Disorders: Yes Hx Gastroesophageal Reflux: Yes - GENITOURINARY/GYNECOLOGICAL Hx Genitourinary Disorders: No - PSYCHIATRIC Hx Substance Use: No - SURGICAL HISTORY Hx Surgeries: Yes Hx Cardiac Catheterization: Yes Other/Comment: defibrillator placement 2005,2007,[id number].AICD - ANESTHESIA Hx Anesthesia: Yes Hx Anesthesia Reactions: No Hx Malignant Hyperthermia: No Meds Allergies/Adverse Reactions: Allergies Allergy/AdvReac Type Severity Reaction Status Date / Time No Known Allergies Allergy Verified 12/23/16 17:30 - Medications Medications: Current Medications Acetaminophen (Tylenol 325mg Tab) 650 mg PO Q6 PRN PRN Reason: Fever >100.4 F Apixaban (Eliquis) 2.5 mg PO BID [facility] Last Admin: 02/11/17 18:04 Dose: 2.5 mg Aspirin (Aspirin Chewable) 81 mg PO DAILY [facility] Last Admin: 02/11/17 09:58 Dose: 81 mg Carvedilol (Coreg) 12.5 mg PO BID [facility] Last Admin: 02/11/17 18:04 Dose: 12.5 mg Clopidogrel Bisulfate (Plavix) 75 mg PO DAILY [facility] Last Admin: 02/11/17 10:18 Dose: 75 mg Famotidine (Pepcid) 20 mg PO DAILY [facility] Last Admin: 02/11/17 10:18 Dose: 20 mg Furosemide (Lasix) 20 mg PO DAILY [facility] Last Admin: 02/11/17 10:18 Dose: 20 mg Cefepime HCl 1 gm/ Dextrose 50 mls @ 100 mls/hr IVPB Q12H [facility] Last Admin: 02/11/17 12:24 Dose: 100 mls/hr Vancomycin HCl 1,000 mg/ (Sodium Chloride) 250 mls @ 166.6 mls/hr IVPB Q12H [facility] Last Admin: 02/11/17 10:18 Dose: 166.6 mls/hr Fluconazole 100 mg/ (Miscellaneous) 50 mls @ 100 mls/hr IVPB Q24H [facility] Last Admin: 02/11/17 13:48 Dose: 100 mls/hr Lisinopril (Zestril) 10 mg PO DAILY [facility] Last Admin: 02/11/17 10:18 Dose: 10 mg Midodrine (Proamatine) 10 mg PO Q8 [facility] Montelukast Sodium (Singulair) 10 mg PO HS [facility] Pneumococcal Polyvalent Vaccine (Pneumovax 23 Vaccine) 0.5 ml IM .ONCE ONE Stop: 02/14/17 10:01 Potassium Chloride (K-Dur 20 Meq Er Tab) 20 meq PO DAILY [facility] Last Admin: 02/11/17 10:17 Dose: 20 meq Rosuvastatin Calcium (Crestor) 20 mg PO HS [facility] Fluticasone/Salmeterol (Advair Diskus 250/50) 1 puff IH RQ12 [facility] Last Admin: 02/11/17 09:56 Dose: 1 puff Physical Exam - Constitutional Appears: No Acute Distress, Confused, Cachectic, Chronically Ill - Head Exam Head Exam: ATRAUMATIC, NORMAL INSPECTION, NORMOCEPHALIC - Eye Exam Eye Exam: EOMI, PERRL. absent: Scleral icterus - ENT Exam ENT Exam: Mucous Membranes Dry, Normal External Ear Exam, Normal Oropharynx - Neck Exam Neck exam: Negative for: Lymphadenopathy - Respiratory Exam Respiratory Exam: Decreased Breath Sounds, Rhonchi - Cardiovascular Exam Cardiovascular Exam: REGULAR RHYTHM, +S1, +S2 - GI/Abdominal Exam GI & Abdominal Exam: Diminished Bowel Sounds, Distended, Soft. absent: Guarding , Rebound, Rigid, Tenderness - Rectal Exam Rectal Exam: Deferred - Exam Exam: NORMAL INSPECTION - Extremities Exam Extremities exam: Positive for: pedal pulses present. Negative for: calf tenderness, pedal edema, tenderness - Back Exam Back exam: absent: CVA tenderness (L), CVA tenderness (R) - Neurological Exam Neurological exam: Alert, Altered, CN II-XII Intact, Motor Sensory Deficit - Psychiatric Exam Psychiatric exam: Depressed - Skin Skin Exam: Dry Results - Vital Signs Recent Vital Signs: Last Vital Signs Temp 98.9 F 02/11/17 08:42 Pulse 78 02/11/17 11:35 Resp 16 02/11/17 11:35 BP 125/77 02/11/17 18:04 Pulse Ox 99 02/11/17 11:35 - Labs Result Diagrams: 02/10/17 16:49 02/11/17 10:47 Labs: Laboratory Results - last 24 hr 02/11/17 10:47 Sodium 134 Potassium 3.1 L Chloride 110 H Carbon Dioxide 22 Anion Gap 6 L BUN 16 Creatinine 0.4 L Est GFR ( Amer) > 60 Est GFR (Non-Af Amer) > 60 Random Glucose 66 L Calcium 6.9 L Total Bilirubin 1.1 AST 19 ALT 40 Alkaline Phosphatase 54 Total Protein 5.8 L Albumin 2.7 L D Globulin 3.1 Albumin/Globulin Ratio 0.9 L Assessment & Plan (1) Confusion Status: Acute (2) Fever Status: Acute - Assessment and Plan (Free Text) Assessment: cultures pending IV rx in progress
--- NOTE | 2017-02-11 21:03 | CP.PCM.CON ---
History of Present Illness - History of Present Illness History of Present Illness: 70-year-old gentleman with prior history of dilated nonischemic cardiomyopathy. He was on medical treatment in addition to an implantable defibrillator when he developed atrial fibrillation and had ablation twice and is still on anticoagulation. He had Myoview stress test with ejection fraction about 20% and no ischemia 2015. Frequent admissions to the [facility] with anxiety atypical pain and shortness of breath. Usually no myocardial infarction and no PE. At this time, he is admitted yet again with similar symptoms in 20, recurrent admission for SOB, for cath, discussed , he underwent a stress test at [facility] was with an ejection fraction of 29% and no ischemia. Follow- up with enzymes and continue observation, reported P edema yet no HTN, tachycardia, Admitted after he was sleepy prolonged period of time. Had fever and now on antibiotic, it is imperative with his advanced CHF to continue with the PEPPER inhibitor and beta arcelia. last admission had cath followed by PCI to [facility] at did well, however later with deteriorating health, depression, failure to thrive, fever, incontinance, deteriorating mental status, was in rehab, not able to go home Review of Systems - Review of Systems Systems not reviewed;Unavailable: Altered Mental Status - Constitutional Constitutional: Anorexia, Weakness - EENT Eyes: absent: Discharge Ears: Dizziness. absent: Ear Discharge Nose/Mouth/Throat: absent: Epistaxis - Cardiovascular Cardiovascular: absent: Acrocyanosis, Chest Pain, Diaphoresis, Palpitations, Pedal Edema, Syncope - Respiratory Respiratory: absent: Cough, Dyspnea, Hemoptysis - Gastrointestinal Gastrointestinal: absent: Abdominal Pain, Diarrhea, Hematochezia, Vomiting - Genitourinary Genitourinary: Change in Urinary Stream Past Patient History - Infectious Disease Hx of Infectious Diseases: None - Past Medical History & Family History Past Medical History?: Yes - Past Social History Smoking Status: Never Smoked - CARDIAC Hx Congestive Heart Failure: Yes Hx Hypercholesterolemia: Yes Hx Hypertension: Yes - PULMONARY Hx Chronic Obstructive Pulmonary Disease (COPD): Yes - NEUROLOGICAL Hx Neurological Disorder: Yes Other/Comment: hx of COMA - HEENT Hx HEENT Problems: No - RENAL Hx Chronic Kidney Disease: No - ENDOCRINE/METABOLIC Hx Endocrine Disorders: No - HEMATOLOGICAL/ONCOLOGICAL Hx Blood Disorders: Yes Hx Hepatitis C: Yes - INTEGUMENTARY Hx Dermatological Problems: No - MUSCULOSKELETAL/RHEUMATOLOGICAL Hx Arthritis: Yes Hx Falls: No - GASTROINTESTINAL Hx Gastrointestinal Disorders: Yes Hx Gastroesophageal Reflux: Yes - GENITOURINARY/GYNECOLOGICAL Hx Genitourinary Disorders: No - PSYCHIATRIC Hx Substance Use: No - SURGICAL HISTORY Hx Surgeries: Yes Hx Cardiac Catheterization: Yes Other/Comment: defibrillator placement 2005,2007,2013.AICD - ANESTHESIA Hx Anesthesia: Yes Hx Anesthesia Reactions: No Hx Malignant Hyperthermia: No Meds Allergies/Adverse Reactions: Allergies Allergy/AdvReac Type Severity Reaction Status Date / Time No Known Allergies Allergy Verified 12/23/16 17:30 - Medications Medications: Current Medications Acetaminophen (Tylenol 325mg Tab) 650 mg PO Q6 PRN PRN Reason: Fever >100.4 F Apixaban (Eliquis) 2.5 mg PO BID [facility] Last Admin: 02/11/17 18:04 Dose: 2.5 mg Aspirin (Aspirin Chewable) 81 mg PO DAILY [facility] Last Admin: 02/11/17 09:58 Dose: 81 mg Carvedilol (Coreg) 12.5 mg PO BID [facility] Last Admin: 02/11/17 18:04 Dose: 12.5 mg Clopidogrel Bisulfate (Plavix) 75 mg PO DAILY [facility] Last Admin: 02/11/17 10:18 Dose: 75 mg Famotidine (Pepcid) 20 mg PO DAILY [facility] Last Admin: 02/11/17 10:18 Dose: 20 mg Furosemide (Lasix) 20 mg PO DAILY [facility] Cefepime HCl 1 gm/ Dextrose 50 mls @ 100 mls/hr IVPB Q12H [facility] Last Admin: 02/11/17 12:24 Dose: 100 mls/hr Vancomycin HCl 1,000 mg/ (Sodium Chloride) 250 mls @ 166.6 mls/hr IVPB Q12H [facility] Last Admin: 02/11/17 10:18 Dose: 166.6 mls/hr Fluconazole 100 mg/ (Miscellaneous) 50 mls @ 100 mls/hr IVPB Q24H [facility] Last Admin: 02/11/17 13:48 Dose: 100 mls/hr Lisinopril (Zestril) 10 mg PO DAILY [facility] Last Admin: 02/11/17 10:18 Dose: 10 mg Midodrine (Proamatine) 10 mg PO Q8 [facility] Montelukast Sodium (Singulair) 10 mg PO HS [facility] Pneumococcal Polyvalent Vaccine (Pneumovax 23 Vaccine) 0.5 ml IM .ONCE ONE Stop: 02/14/17 10:01 Potassium Chloride (K-Dur 20 Meq Er Tab) 20 meq PO DAILY [facility] Last Admin: 02/11/17 10:17 Dose: 20 meq Rosuvastatin Calcium (Crestor) 20 mg PO HS [facility] Fluticasone/Salmeterol (Advair Diskus 250/50) 1 puff IH RQ12 [facility] Last Admin: 02/11/17 19:05 Dose: 1 puff Physical Exam - Constitutional Appears: Toxic - Head Exam Head Exam: ATRAUMATIC - Eye Exam Eye Exam: EOMI - ENT Exam ENT Exam: Mucous Membranes Moist - Neck Exam Neck exam: Negative for: Lymphadenopathy, Thyromegaly - Respiratory Exam Respiratory Exam: Clear to Auscultation Bilateral. absent: Rales - Cardiovascular Exam Cardiovascular Exam: REGULAR RHYTHM, Systolic Murmur - GI/Abdominal Exam GI & Abdominal Exam: Normal Bowel Sounds. absent: Organomegaly - Rectal Exam Rectal Exam: Deferred - Extremities Exam Extremities exam: Positive for: normal capillary refill. Negative for: calf tenderness - Neurological Exam Neurological exam: Alert, Altered - Psychiatric Exam Psychiatric exam: Depressed - Skin Skin Exam: Dry Results - Vital Signs Recent Vital Signs: Last Vital Signs Temp 98.9 F 02/11/17 08:42 Pulse 78 02/11/17 11:35 Resp 16 02/11/17 11:35 BP 125/77 02/11/17 18:04 Pulse Ox 99 02/11/17 11:35 - Labs Result Diagrams: 02/10/17 16:49 02/11/17 10:47 Labs: Laboratory Results - last 24 hr 02/11/17 02/11/17 10:47 19:01 Sodium 134 Potassium 3.1 L Chloride 110 H Carbon Dioxide 22 Anion Gap 6 L BUN 16 Creatinine 0.4 L Est GFR ( Amer) > 60 Est GFR (Non-Af Amer) > 60 Random Glucose 66 L Calcium 6.9 L Total Bilirubin 1.1 AST 19 ALT 40 Alkaline Phosphatase 54 Total Protein 5.8 L Albumin 2.7 L D Globulin 3.1 Albumin/Globulin Ratio 0.9 L Influenza Typ A,B (EIA) Negative for flu a/b Assessment & Plan (1) Confusion Status: Acute Comment: dehydration (2) Fever Status: Acute Comment: septic w/u (3) Congestive cardiac failure Status: Chronic Comment: LV systolic on medical treatment, ICD
--- NOTE | 2017-02-11 21:50 | CARD ---
APPROVED REPORT EKG Measurement Heart [id number] <Conclusion> Atrial flutter Ventricular-paced rhythm Abnormal ECG
[2017-02-11] MEDS ORDERED: Home Med 1 UNIT (Atorvastatin Calcium [Atorvastatin Calcium] 40 MG) PO SCH (22:00)
--- NOTE | 2017-02-12 06:40 | HP ---
HISTORY OF PRESENT ILLNESS: Patient chief complaint weakness, fatigue, tiredness, fever 101, no confusion, poor appetite, unable to walk. Patient came to the ER, advised admission. PHYSICAL EXAMINATION: GENERAL: Patient is awake, alert and oriented. VITAL SIGNS: Temperature 101, pulse 90. HEENT: Within normal limits. NECK: Supple. CHEST: Symmetrical. HEART: Regular. ABDOMEN: Soft. EXTREMITIES: No edema. IMPRESSION: Patient suffers from sepsis. PLAN: Patient need bedrest, antibiotics, supportive care. Sofia Cardona MD
[2017-02-12 07:39] LABS: BASO % 0.7 % (0.0-2.0); EOS # 0.1 K/uL (0.0-0.7); EOS % 1.1 % (0.0-4.0); HEMATOCRIT 34.4 % (35.0-51.0); LYMPH # 1.8 K/uL (1.0-4.3); LYMPH % 26.5 % (20.0-40.0); MEAN CELL VOLUME 81.9 fL (80.0-94.0); MEAN CORPUSCULAR HEMOGLOBIN 27.5 pg (27.0-31.0); MEAN CORPUSCULAR HGB CONC 33.6 g/dL (33.0-37.0); MEAN PLATELET VOLUME 9.1 fL (7.2-11.7); MONO # 0.5 K/uL (0.0-0.8); MONO % 7.1 % (0.0-10.0); NRBC % 0.1 % (0.0-2.0); RED CELL DISTRIBUTION WIDTH 16.6 % (11.5-14.5); WHITE BLOOD COUNT 6.8 K/uL (4.8-10.8)
[2017-02-12 07:58] LABS: INR 1.7
[2017-02-12 08:03] LABS: ALB/GLOB RATIO 1.2 (1.0-2.1); ALKALINE PHOSPHATASE 65 U/L (38-126); ALT/SGPT 38 U/L (21-72); AST/SGOT 19 U/L (17-59); BILIRUBIN,TOTAL 1.7 mg/dL (0.2-1.3); BLOOD UREA NITROGEN 15 mg/dL (9-20); CARBON DIOXIDE 25 mmol/L (22-30); CHLORIDE 106 mmol/L (98-107); GFR AFRICAN-AMERICAN > 60; GLUCOSE,RANDOM 94 mg/dL (75-110); POTASSIUM 3.2 mmol/L (3.6-5.2); SODIUM 139 mmol/L (132-148); TOTAL PROTEIN 5.6 g/dL (6.3-8.3)
[2017-02-12] MEDS ORDERED: Potassium Chloride 20 mEq/15 ml LIQ UD PO ONE ×2 (08:45→10:00)
--- NOTE | 2017-02-12 09:09 | CP.PCM.PN ---
Subjective - Date & Time of Evaluation Date of Evaluation: 02/12/17 Time of Evaluation: 10:30 - Subjective Subjective: Dr. Cardona note: Patient seen and examined with medical attending Dr. Cardona. Patient is more confused than his baseline. He does is not oriented but is still very friendly and obeys commands. Objective - Vital Signs/Intake and Output Vital Signs (last 24 hours): Temp Pulse Resp BP Pulse Ox 98.1 F 69 20 112/64 96 02/12/17 08:13 02/12/17 08:13 02/12/17 08:13 02/12/17 08:13 02/12/17 08:13 Intake and Output: 02/12/17 02/12/17 06:59 18:59 Intake Total 560 100 Output Total 300 300 Balance 260 -200 - Medications Medications: Current Medications Acetaminophen (Tylenol 325mg Tab) 650 mg PO Q6 PRN PRN Reason: Fever >100.4 F Apixaban (Eliquis) 2.5 mg PO BID [facility] Last Admin: 02/11/17 18:04 Dose: 2.5 mg Aspirin (Aspirin Chewable) 81 mg PO DAILY [facility] Last Admin: 02/11/17 09:58 Dose: 81 mg Carvedilol (Coreg) 12.5 mg PO BID [facility] Last Admin: 02/11/17 18:04 Dose: 12.5 mg Clopidogrel Bisulfate (Plavix) 75 mg PO DAILY [facility] Last Admin: 02/11/17 10:18 Dose: 75 mg Famotidine (Pepcid) 20 mg PO DAILY [facility] Last Admin: 02/11/17 10:18 Dose: 20 mg Furosemide (Lasix) 20 mg PO DAILY [facility] Cefepime HCl 1 gm/ Dextrose 50 mls @ 100 mls/hr IVPB Q12H [facility] Last Admin: 02/11/17 21:46 Dose: 100 mls/hr Vancomycin HCl 1,000 mg/ (Sodium Chloride) 250 mls @ 166.6 mls/hr IVPB Q12H [facility] Last Admin: 02/11/17 21:51 Dose: 166.6 mls/hr Fluconazole 100 mg/ (Miscellaneous) 50 mls @ 100 mls/hr IVPB Q24H [facility] Last Admin: 02/11/17 13:48 Dose: 100 mls/hr Lisinopril (Zestril) 10 mg PO DAILY [facility] Last Admin: 02/11/17 10:18 Dose: 10 mg Midodrine (Proamatine) 10 mg PO Q8 [facility] Last Admin: 02/12/17 06:31 Dose: 10 mg Montelukast Sodium (Singulair) 10 mg PO HS [facility] Last Admin: 02/11/17 21:47 Dose: 10 mg Pneumococcal Polyvalent Vaccine (Pneumovax 23 Vaccine) 0.5 ml IM .ONCE ONE Stop: 02/14/17 10:01 Rosuvastatin Calcium (Crestor) 20 mg PO [facility] Last Admin: 02/11/17 21:47 Dose: 20 mg Fluticasone/Salmeterol (Advair Diskus 250/50) 1 puff IH RQ12 [facility] Last Admin: 02/11/17 19:05 Dose: 1 puff - Labs Labs: 02/12/17 06:57 02/12/17 06:57 PT 19.4 SECONDS (9.7-12.2) H 02/12/17 06:57 INR 1.7 02/12/17 06:57 APTT 32 SECONDS (21-34) 02/10/17 16:49 - Constitutional Appears: Non-toxic, No Acute Distress, Confused - Eye Exam Eye Exam: Normal appearance, PERRL. absent: Scleral icterus - ENT Exam ENT Exam: absent: Normal Exam - Respiratory Exam Respiratory Exam: Clear to Ausculation Bilateral. absent: Rales, Rhonchi, Wheezes - Cardiovascular Exam Cardiovascular Exam: REGULAR RHYTHM, RRR, +S1, +S2. absent: Gallop, Rubs - GI/Abdominal Exam GI & Abdominal Exam: Soft, Normal Bowel Sounds. absent: Tenderness - Extremities Exam Extremities Exam: Normal Inspection. absent: Pedal Edema - Back Exam Back Exam: NORMAL INSPECTION - Neurological Exam Neurological Exam: Alert, Awake. absent: Oriented x3 - Skin Skin Exam: Normal Color Assessment and Plan - Assessment and Plan (Free Text) Assessment: Fever 02/12: cultures so far negative, WBC is trending down, day 2 of IV antibiotics, Dr. Garay consulted. Recorded 101.1 last night. Cefepime 1g IV q12H started 02/11. Vancomycin 1000mg IV q12H. started 02/11. Tylenol PRN. F/U blood culture. AMS 02/12: CT of the head, Neurology consulted, follow up RPR, Hep panel, HIV, B12, B1. Dr. Chavis consulted, he may need further work up such as MRI or LP. Also monitor CMP, CBC. Ordered for Lyme and TB as well. K was 3.2, gave liquid potassium. Speech recomends thin liquid diet, aspirations precautions. Patient will need to monitored carefuly for aspiration risk. Oral thrush 02/12: Dr. Garay, consulted. Pt was able to swallow water in ED. Diflucan 100mg IV daily started 02/11. F/U hep panel and HIV. F/U speech and swallow evaluation. CHF 02/12: Cardiology consulted, need to follow up. Continue Coreg 12.5mg PO BID, Lasix 20mg PO daily, midodrine 10mg PO q8H and Lisinopril 10mg PO daily. Hx of CAD Continue ASA 81mg PO daily, Crestor 20mg PO HS, Eliquis 2.5mg PO BID, Plavix 75mg PO daily. COPD Continue Advair, Singulair. Prophylactic measure Pepcid, Eliquis/Plavix. SCD contraindicated for fall risk. PT/OT. Management as per Dr. Cardona
[2017-02-12] MEDS: Fluticasone-Salmeterol 250-50mcg Diskus IH SCH ×2 (09:37→21:13)
--- NOTE | 2017-02-12 12:39 | CP.PCM.PN ---
Subjective - Date & Time of Evaluation Date of Evaluation: 02/12/17 Time of Evaluation: 12:00 - Subjective Subjective: Empiric treatment for sepsis with the help of infectious disease, gentle hydration with CHF. Poor prognosis. Cultures are neg thus far Objective - Vital Signs/Intake and Output Vital Signs (last 24 hours): Temp Pulse Resp BP Pulse Ox 98.1 F 69 20 116/65 96 02/12/17 08:13 02/12/17 08:13 02/12/17 08:13 02/12/17 10:04 02/12/17 08:13 Intake and Output: 02/12/17 02/12/17 06:59 18:59 Intake Total 560 100 Output Total 300 300 Balance 260 -200 - Medications Medications: Current Medications Acetaminophen (Tylenol 325mg Tab) 650 mg PO Q6 PRN PRN Reason: Fever >100.4 F Apixaban (Eliquis) 2.5 mg PO BID [facility] Last Admin: 02/12/17 10:03 Dose: 2.5 mg Aspirin (Aspirin Chewable) 81 mg PO DAILY [facility] Last Admin: 02/12/17 10:03 Dose: 81 mg Carvedilol (Coreg) 12.5 mg PO BID [facility] Last Admin: 02/12/17 10:03 Dose: 12.5 mg Clopidogrel Bisulfate (Plavix) 75 mg PO DAILY [facility] Last Admin: 02/12/17 10:03 Dose: 75 mg Famotidine (Pepcid) 20 mg PO DAILY [facility] Last Admin: 02/12/17 10:04 Dose: 20 mg Furosemide (Lasix) 20 mg PO DAILY [facility] Last Admin: 02/12/17 10:04 Dose: 20 mg Cefepime HCl 1 gm/ Dextrose 50 mls @ 100 mls/hr IVPB Q12H [facility] Last Admin: 02/12/17 10:08 Dose: 100 mls/hr Vancomycin HCl 1,000 mg/ (Sodium Chloride) 250 mls @ 166.6 mls/hr IVPB Q12H [facility] Last Admin: 02/12/17 10:41 Dose: 166.6 mls/hr Fluconazole 100 mg/ (Miscellaneous) 50 mls @ 100 mls/hr IVPB Q24H [facility] Last Admin: 02/11/17 13:48 Dose: 100 mls/hr Lisinopril (Zestril) 10 mg PO DAILY [facility] Last Admin: 02/12/17 10:03 Dose: 10 mg Midodrine (Proamatine) 10 mg PO Q8 [facility] Last Admin: 02/12/17 06:31 Dose: 10 mg Montelukast Sodium (Singulair) 10 mg PO HS [facility] Last Admin: 02/11/17 21:47 Dose: 10 mg Pneumococcal Polyvalent Vaccine (Pneumovax 23 Vaccine) 0.5 ml IM .ONCE ONE Stop: 02/14/17 10:01 Rosuvastatin Calcium (Crestor) 20 mg PO [facility] Last Admin: 02/11/17 21:47 Dose: 20 mg Fluticasone/Salmeterol (Advair Diskus 250/50) 1 puff IH RQ12 [facility] Last Admin: 02/12/17 09:37 Dose: Not Given - Labs Labs: 02/12/17 06:57 02/12/17 06:57 PT 19.4 SECONDS (9.7-12.2) H 02/12/17 06:57 INR 1.7 02/12/17 06:57 APTT 32 SECONDS (21-34) 02/10/17 16:49 - Constitutional Appears: Toxic - Head Exam Head Exam: ATRAUMATIC - Eye Exam Eye Exam: EOMI - ENT Exam ENT Exam: Mucous Membranes Moist - Neck Exam Neck Exam: absent: Lymphadenopathy, Thyromegaly - Respiratory Exam Respiratory Exam: Clear to Ausculation Bilateral. absent: Prolonged Expiratory Phase, Rales - Cardiovascular Exam Cardiovascular Exam: REGULAR RHYTHM, Murmur - GI/Abdominal Exam GI & Abdominal Exam: Normal Bowel Sounds. absent: Organomegaly - Rectal Exam Rectal Exam: Deferred - Extremities Exam Extremities Exam: Normal Capillary Refill. absent: Calf Tenderness - Neurological Exam Neurological Exam: Alert, Altered - Psychiatric Exam Psychiatric exam: Depressed - Skin Skin Exam: Dry Assessment and Plan (1) Confusion Status: Acute (2) Fever Status: Acute (3) Congestive cardiac failure Status: Chronic
[2017-02-12] MEDS: Fluconazole IV 200mg/100 ml NS 100 MG in Premixed IV 1 EA IVPB SCH (13:43)
--- NOTE | 2017-02-12 15:45 | CT ---
PROCEDURE: CT HEAD WITHOUT CONTRAST. HISTORY: AMS COMPARISON: 12/31/2016 TECHNIQUE: Axial computed tomography images were obtained through the head/brain without intravenous contrast. Radiation dose: Total exam DLP = 1046.02 mGy-cm. This CT exam was performed using one or more of the following dose reduction techniques: Automated exposure control, adjustment of the mA and/or kV according to patient size, and/or use of iterative reconstruction technique. FINDINGS: HEMORRHAGE: No intracranial hemorrhage. BRAIN: No mass effect or edema. Mild diffuse age-appropriate cerebral atrophy. Moderate periventricular white matter lucency with patchy and confluent white matter lucency in the deep and subcortical white matter bilaterally, consistent with microvascular ischemic change. This is unchanged in extent compared to the prior CT examination. There is no evidence of acute infarct. VENTRICLES: No hydrocephalus. Incidentally noted cavum septum pellucidum and vergae. CALVARIUM: Unremarkable. PARANASAL SINUSES: Unremarkable as visualized. No significant inflammatory changes. MASTOID AIR CELLS: Unremarkable as visualized. No inflammatory changes. OTHER FINDINGS: None. IMPRESSION: No intracranial mass, hemorrhage or evidence of acute infarct. Moderate chronic periventricular and deep white matter ischemic change. No change from 12/31/2016.
--- NOTE | 2017-02-12 16:12 | CP.PCM.PN ---
Subjective - Date & Time of Evaluation Date of Evaluation: 02/12/17 Time of Evaluation: 09:00 - Subjective Subjective: lethargic arousable confused NAD all cultures neg thus far Objective - Vital Signs/Intake and Output Vital Signs (last 24 hours): Temp Pulse Resp BP Pulse Ox 98.6 F 76 20 114/71 98 02/12/17 15:36 02/12/17 15:36 02/12/17 15:36 02/12/17 15:36 02/12/17 15:36 Intake and Output: 02/12/17 02/12/17 06:59 18:59 Intake Total 560 340 Output Total 300 800 Balance 260 -460 - Medications Medications: Current Medications Acetaminophen (Tylenol 325mg Tab) 650 mg PO Q6 PRN PRN Reason: Fever >100.4 F Apixaban (Eliquis) 2.5 mg PO BID [facility] Last Admin: 02/12/17 10:03 Dose: 2.5 mg Aspirin (Aspirin Chewable) 81 mg PO DAILY [facility] Last Admin: 02/12/17 10:03 Dose: 81 mg Carvedilol (Coreg) 12.5 mg PO BID [facility] Last Admin: 02/12/17 10:03 Dose: 12.5 mg Clopidogrel Bisulfate (Plavix) 75 mg PO DAILY [facility] Last Admin: 02/12/17 10:03 Dose: 75 mg Famotidine (Pepcid) 20 mg PO DAILY [facility] Last Admin: 02/12/17 10:04 Dose: 20 mg Furosemide (Lasix) 20 mg PO DAILY [facility] Last Admin: 02/12/17 10:04 Dose: 20 mg Cefepime HCl 1 gm/ Dextrose 50 mls @ 100 mls/hr IVPB Q12H [facility] Last Admin: 02/12/17 10:08 Dose: 100 mls/hr Vancomycin HCl 1,000 mg/ (Sodium Chloride) 250 mls @ 166.6 mls/hr IVPB Q12H [facility] Last Admin: 02/12/17 10:41 Dose: 166.6 mls/hr Fluconazole 100 mg/ (Miscellaneous) 50 mls @ 100 mls/hr IVPB Q24H [facility] Last Admin: 02/12/17 13:43 Dose: 100 mls/hr Lisinopril (Zestril) 10 mg PO DAILY [facility] Last Admin: 02/12/17 10:03 Dose: 10 mg Midodrine (Proamatine) 10 mg PO Q8 [facility] Last Admin: 02/12/17 13:43 Dose: 10 mg Montelukast Sodium (Singulair) 10 mg PO [facility] Last Admin: 02/11/17 21:47 Dose: 10 mg Pneumococcal Polyvalent Vaccine (Pneumovax 23 Vaccine) 0.5 ml IM .ONCE ONE Stop: 02/14/17 10:01 Rosuvastatin Calcium (Crestor) 20 mg PO [facility] Last Admin: 02/11/17 21:47 Dose: 20 mg Fluticasone/Salmeterol (Advair Diskus 250/50) 1 puff IH RQ12 [facility] Last Admin: 02/12/17 09:37 Dose: Not Given - Labs Labs: 02/12/17 06:57 02/12/17 06:57 PT 19.4 SECONDS (9.7-12.2) H 02/12/17 06:57 INR 1.7 02/12/17 06:57 APTT 32 SECONDS (21-34) 02/10/17 16:49 - Constitutional Appears: Non-toxic, Chronically Ill - Head Exam Head Exam: NORMOCEPHALIC - Eye Exam Eye Exam: PERRL - ENT Exam ENT Exam: Mucous Membranes Dry - Neck Exam Neck Exam: absent: Lymphadenopathy - Respiratory Exam Respiratory Exam: Decreased Breath Sounds - Cardiovascular Exam Cardiovascular Exam: REGULAR RHYTHM - GI/Abdominal Exam GI & Abdominal Exam: Distended, Soft Assessment and Plan (1) Confusion Status: Acute (2) Fever Status: Acute
[2017-02-13 07:41] LABS: BASO % 0.7 % (0.0-2.0); EOS # 0.1 K/uL (0.0-0.7); EOS % 1.2 % (0.0-4.0); HEMATOCRIT 33.4 % (35.0-51.0); LYMPH # 1.7 K/uL (1.0-4.3); LYMPH % 26.4 % (20.0-40.0); MEAN CORPUSCULAR HEMOGLOBIN 27.6 pg (27.0-31.0); MEAN CORPUSCULAR HGB CONC 33.7 g/dL (33.0-37.0); MONO # 0.6 K/uL (0.0-0.8); MONO % 8.9 % (0.0-10.0); NRBC % 0.1 % (0.0-2.0); RED CELL DISTRIBUTION WIDTH 16.6 % (11.5-14.5); WHITE BLOOD COUNT 6.6 K/uL (4.8-10.8)
[2017-02-13 08:06] LABS: ALKALINE PHOSPHATASE 63 U/L (38-126); ALT/SGPT 41 U/L (21-72); AST/SGOT 20 U/L (17-59); BILIRUBIN,TOTAL 1.5 mg/dL (0.2-1.3); BLOOD UREA NITROGEN 14 mg/dL (9-20); CARBON DIOXIDE 27 mmol/L (22-30); CHLORIDE 105 mmol/L (98-107); GFR AFRICAN-AMERICAN > 60; GLUCOSE,RANDOM 100 mg/dL (75-110); MAGNESIUM 1.7 mg/dL (1.6-2.3); POTASSIUM 3.2 mmol/L (3.6-5.2); SODIUM 138 mmol/L (132-148); TOTAL PROTEIN 5.4 g/dL (6.3-8.3)
[2017-02-13 08:13] LABS: ALB/GLOB RATIO 1.3 (1.0-2.1)
[2017-02-13 08:28] LABS: THYROID STIMULATING HORMONE 0.94 mIU/L (0.46-4.68)
[2017-02-13] MEDS: Fluticasone-Salmeterol 250-50mcg Diskus IH SCH ×2 (09:15→19:35)
[2017-02-13] MEDS: Fluconazole IV 200mg/100 ml NS 100 MG in Premixed IV 1 EA IVPB SCH (14:10)
--- NOTE | 2017-02-13 14:36 | CP.PCM.CON ---
History of Present Illness - History of Present Illness History of Present Illness: Mr. Pickard is a 71-year-old man with a past medical history of Arthritis (BACK) , Asthma, Atrial Fibrillation (on Eliquis), Back Problems (cervical radiculitis) , CHF, COPD, HTN, Hypercholesterolemia, Hyperlipidemia who was brought in from his assisted living facility due to increasing confusion. According to records , the patient has dementia at baseline. He was found to have fever, white count , and suspected of having sepsis. He was started on vancomycin and cefepine. He was hypotensive and is on midodrine. I was consulted to assist from a neurological standpoint. The patient answered very simple questions. "How are you?", "Do you have any pain?" But, he did not answer any questions about his history and was confused about where he is and the date. He could not move his lower extremities, and showed little response/compliance with the rest of the exam. Review of Systems - Review of Systems Systems not reviewed;Unavailable: Altered Mental Status Past Patient History - Infectious Disease Hx of Infectious Diseases: None - Past Medical History & Family History Past Medical History?: Yes - Past Social History Smoking Status: Never Smoked - CARDIAC Hx Congestive Heart Failure: Yes Hx Hypercholesterolemia: Yes Hx Hypertension: Yes - PULMONARY Hx Chronic Obstructive Pulmonary Disease (COPD): Yes - NEUROLOGICAL Hx Neurological Disorder: Yes Other/Comment: hx of COMA - HEENT Hx HEENT Problems: No - RENAL Hx Chronic Kidney Disease: No - ENDOCRINE/METABOLIC Hx Endocrine Disorders: No - HEMATOLOGICAL/ONCOLOGICAL Hx Blood Disorders: Yes Hx Hepatitis C: Yes - INTEGUMENTARY Hx Dermatological Problems: No - MUSCULOSKELETAL/RHEUMATOLOGICAL Hx Arthritis: Yes - GASTROINTESTINAL Hx Gastrointestinal Disorders: Yes Hx Gastroesophageal Reflux: Yes - GENITOURINARY/GYNECOLOGICAL Hx Genitourinary Disorders: No - PSYCHIATRIC Hx Substance Use: No - SURGICAL HISTORY Hx Surgeries: Yes Hx Cardiac Catheterization: Yes Other/Comment: defibrillator placement 2005,2007,2013.AICD - ANESTHESIA Hx Anesthesia: Yes Hx Anesthesia Reactions: No Hx Malignant Hyperthermia: No Meds Allergies/Adverse Reactions: Allergies Allergy/AdvReac Type Severity Reaction Status Date / Time No Known Allergies Allergy Verified 12/23/16 17:30 - Medications Medications: Current Medications Acetaminophen (Tylenol 325mg Tab) 650 mg PO Q6 PRN PRN Reason: Fever >100.4 F Apixaban (Eliquis) 2.5 mg PO BID [facility] Last Admin: 02/13/17 10:29 Dose: 2.5 mg Aspirin (Aspirin Chewable) 81 mg PO DAILY [facility] Last Admin: 02/13/17 10:29 Dose: 81 mg Carvedilol (Coreg) 12.5 mg PO BID [facility] Last Admin: 02/13/17 10:29 Dose: 12.5 mg Clopidogrel Bisulfate (Plavix) 75 mg PO DAILY [facility] Last Admin: 02/13/17 10:29 Dose: 75 mg Famotidine (Pepcid) 20 mg PO DAILY [facility] Last Admin: 02/13/17 10:29 Dose: 20 mg Furosemide (Lasix) 20 mg PO DAILY [facility] Last Admin: 02/13/17 10:29 Dose: 20 mg Cefepime HCl 1 gm/ Dextrose 50 mls @ 100 mls/hr IVPB Q12H [facility] Last Admin: 02/13/17 10:37 Dose: 100 mls/hr Vancomycin HCl 1,000 mg/ (Sodium Chloride) 250 mls @ 166.6 mls/hr IVPB Q12H [facility] Last Admin: 02/13/17 11:00 Dose: 166.6 mls/hr Fluconazole 100 mg/ (Miscellaneous) 50 mls @ 100 mls/hr IVPB Q24H [facility] Last Admin: 02/13/17 14:10 Dose: 100 mls/hr Lisinopril (Zestril) 10 mg PO DAILY [facility] Last Admin: 02/13/17 10:35 Dose: 10 mg Midodrine (Proamatine) 10 mg PO Q8 [facility] Last Admin: 02/13/17 14:15 Dose: 10 mg Montelukast Sodium (Singulair) 10 mg PO [facility] Last Admin: 02/12/17 21:56 Dose: 10 mg Pneumococcal Polyvalent Vaccine (Pneumovax 23 Vaccine) 0.5 ml IM .ONCE ONE Stop: 02/14/17 10:01 Rosuvastatin Calcium (Crestor) 20 mg PO [facility] Last Admin: 02/12/17 21:47 Dose: 20 mg Fluticasone/Salmeterol (Advair Diskus 250/50) 1 puff IH RQ12 [facility] Last Admin: 02/13/17 09:15 Dose: Not Given Physical Exam - Constitutional Appears: Chronically Ill - Head Exam Head Exam: ATRAUMATIC, NORMAL INSPECTION, NORMOCEPHALIC - Eye Exam Eye Exam: EOMI, Normal appearance, PERRL - ENT Exam ENT Exam: Mucous Membranes Moist, Normal Exam - Neck Exam Neck exam: Positive for: Normal Inspection - Respiratory Exam Respiratory Exam: Clear to Auscultation Bilateral, NORMAL BREATHING PATTERN - Cardiovascular Exam Cardiovascular Exam: +S1, +S2 - GI/Abdominal Exam GI & Abdominal Exam: Normal Bowel Sounds, Soft. absent: Tenderness - Rectal Exam Rectal Exam: Deferred - Extremities Exam Extremities exam: Positive for: normal inspection - Neurological Exam Neurological exam: Altered, CN II-XII Intact Additional comments: Aphasic, not dysarthric. Left facial droop noted. Left side upper extremity asymmetrically weak compared with right. Bilateral lower extremities are weak and no movement was initiated. Reflexes were elicited. Plantar responses were equivocal. Gait could not be assessed. Sensation appeared to be intact throughout to pain. - Psychiatric Exam Psychiatric exam: Depressed, Flat Affect Results - Vital Signs Recent Vital Signs: Last Vital Signs Temp 98.6 F 02/12/17 15:36 Pulse 76 02/12/17 16:39 Resp 20 02/12/17 15:36 BP 114/71 02/13/17 10:29 Pulse Ox 98 02/12/17 16:39 - Labs Result Diagrams: 02/13/17 07:27 02/13/17 07:27 Labs: Laboratory Results - last 24 hr 02/13/17 02/13/17 02/13/17 07:27 07:27 07:27 WBC RBC Hgb Hct MCV MCH MCHC RDW Plt Count MPV Neut % (Auto) Lymph % (Auto) Amador % (Auto) Eos % (Auto) Baso % (Auto) Neut # Lymph # Amador # Eos # Baso # Sodium 138 Potassium 3.2 L Chloride 105 Carbon Dioxide 27 Anion Gap 9 L BUN 14 Creatinine 0.5 L Est GFR ( Amer) > 60 Est GFR (Non-Af Amer) > 60 Random Glucose 100 Calcium 8.0 L Phosphorus 3.0 Magnesium 1.7 Total Bilirubin 1.5 H AST 20 ALT 41 Alkaline Phosphatase 63 Total Protein 5.4 L Albumin 3.0 L Globulin 2.4 Albumin/Globulin Ratio 1.3 Vitamin B12 785 Free T4 1.72 TSH 3rd Generation 0.94 Vancomycin Trough Hepatitis A IgM Ab Negative Hep Bs Antigen Negative Hep B Core IgM Ab Negative Hepatitis C Antibody Reactive 02/13/17 02/13/17 07:27 07:27 WBC 6.6 RBC 4.08 L Hgb 11.3 L Hct 33.4 L MCV 82.0 MCH 27.6 MCHC 33.7 RDW 16.6 H Plt Count 193 MPV 9.0 Neut % (Auto) 62.8 Lymph % (Auto) 26.4 Amador % (Auto) 8.9 Eos % (Auto) 1.2 Baso % (Auto) 0.7 Neut # 4.1 Lymph # 1.7 Amador # 0.6 Eos # 0.1 Baso # 0.0 Sodium Potassium Chloride Carbon Dioxide Anion Gap BUN Creatinine Est GFR ( Amer) Est GFR (Non-Af Amer) Random Glucose Calcium Phosphorus Magnesium Total Bilirubin AST ALT Alkaline Phosphatase Total Protein Albumin Globulin Albumin/Globulin Ratio Vitamin B12 Free T4 TSH 3rd Generation Vancomycin Trough 9.5 Hepatitis A IgM Ab Hep Bs Antigen Hep B Core IgM Ab Hepatitis C Antibody - Imaging and Cardiology CT scan - head Status: Image reviewed by me, Report reviewed by me (Right frontal chronic appearing hypodensity.) Assessment & Plan (1) Encephalopathy acute Assessment and Plan: This could be due to toxic-metabolic encephalopathy, or may be due to underlying right frontal lobe lesion (stroke, tumor?). Another possibility is that he is having complex partial seizures. I recommend repeat CT of the head, since the patient cannot have an MRI (pacemaker). Continue Eliquis. Treat underlying infections and metabolic derangements. Will order an EEG. Thank you. Status: Acute Priority: High (2) Confusion Status: Acute Priority: High (3) Chronic congestive heart failure Status: Chronic Priority: High
[2017-02-13] MEDS ORDERED: Iodixanol 320 MG/ML 100 ML BOTTLE IV ONE (15:26)
--- NOTE | 2017-02-13 16:51 | CT ---
PROCEDURE: CT ANGIOGRAM HEAD AND NECK HISTORY: aphasia, left facial droop. COMPARISON: NONE AVAILABLE. TECHNIQUE: Following the intravenous administration of Visipaque 320-100 cc, CT angiogram of the head and neck was performed. Reformatted datasets provided he using separate workstation in axial coronal and sagittal data sets. Total DLP dose 492.70 mGy-cm. FINDINGS: Despite the lack of extravasation/intravasation as well as using in adequate intravenous catheter, there is extremely poor contrast enhancement throughout the main arteries of the head and neck providing this examination with nondiagnostic images. Moderate atherosclerotic plaques identified at the bilateral carotid bulb regions which are partially calcified and other lumina of the neck and intracranial arteries is likely adequate, the cannot be quantified by this examination. Consider repeat CTA or MR angiogram (these both with contrast) for follow-up evaluation. IMPRESSION: Nondiagnostic CT angiogram as discussed above. There was apparently no technical failure but there may be very poor cardiac output causing a missed bolus injection. Follow-up MR angiogram with contrast or repeat CTA is advised.
[2017-02-14] MEDS: Fluticasone-Salmeterol 250-50mcg Diskus IH SCH ×2 (07:34→19:52)
[2017-02-14 07:35] LABS: BASO % 0.5 % (0.0-2.0); EOS # 0.1 K/uL (0.0-0.7); EOS % 1.2 % (0.0-4.0); HEMATOCRIT 32.9 % (35.0-51.0); LYMPH # 2.1 K/uL (1.0-4.3); MEAN CELL VOLUME 81.2 fL (80.0-94.0); MEAN CORPUSCULAR HEMOGLOBIN 27.6 pg (27.0-31.0); MEAN PLATELET VOLUME 8.9 fL (7.2-11.7); MONO # 0.7 K/uL (0.0-0.8); MONO % 8.6 % (0.0-10.0); RED CELL DISTRIBUTION WIDTH 16.5 % (11.5-14.5); WHITE BLOOD COUNT 7.5 K/uL (4.8-10.8)
[2017-02-14 08:08] LABS: ALB/GLOB RATIO 1.3 (1.0-2.1); ALKALINE PHOSPHATASE 65 U/L (38-126); ALT/SGPT 37 U/L (21-72); AST/SGOT 18 U/L (17-59); BILIRUBIN,TOTAL 1.2 mg/dL (0.2-1.3); BLOOD UREA NITROGEN 11 mg/dL (9-20); CALCIUM 7.9 mg/dl (8.6-10.4); CARBON DIOXIDE 26 mmol/L (22-30); CHLORIDE 103 mmol/L (98-107); GFR AFRICAN-AMERICAN > 60; GLUCOSE,RANDOM 96 mg/dL (75-110); MAGNESIUM 1.6 mg/dL (1.6-2.3); PHOSPHOROUS 3.1 mg/dL (2.5-4.5); POTASSIUM 3.2 mmol/L (3.6-5.2); SODIUM 136 mmol/L (132-148); TOTAL PROTEIN 5.3 g/dL (6.3-8.3)
[2017-02-14] MEDS ORDERED: Pneumococcal 23-Valent Vaccine IM ONE (10:00)
[2017-02-14] MEDS: Potassium Chloride 20 mEq/15 ml LIQ UD PO SCH (10:31)
[2017-02-14] MEDS: Fluconazole IV 200mg/100 ml NS 100 MG in Premixed IV 1 EA IVPB SCH (14:38)
--- NOTE | 2017-02-14 15:03 | CP.PCM.PN ---
Subjective - Date & Time of Evaluation Date of Evaluation: 02/14/17 Time of Evaluation: 09:00 - Subjective Subjective: remains aphasic arousable nad neuro work up in progress Objective - Vital Signs/Intake and Output Vital Signs (last 24 hours): Temp Pulse Resp BP Pulse Ox 98.0 F 73 20 121/68 96 02/14/17 07:17 02/14/17 07:17 02/14/17 07:17 02/14/17 10:31 02/14/17 07:17 Intake and Output: 02/14/17 02/14/17 06:59 18:59 Intake Total 460 Output Total 450 Balance 10 - Medications Medications: Current Medications Acetaminophen (Tylenol 325mg Tab) 650 mg PO Q6 PRN PRN Reason: Fever >100.4 F Apixaban (Eliquis) 2.5 mg PO BID [facility] Last Admin: 02/14/17 10:32 Dose: 2.5 mg Aspirin (Aspirin Chewable) 81 mg PO DAILY [facility] Last Admin: 02/14/17 10:30 Dose: 81 mg Carvedilol (Coreg) 12.5 mg PO BID [facility] Last Admin: 02/14/17 10:31 Dose: 12.5 mg Clopidogrel Bisulfate (Plavix) 75 mg PO DAILY [facility] Last Admin: 02/14/17 10:30 Dose: 75 mg Famotidine (Pepcid) 20 mg PO DAILY [facility] Last Admin: 02/14/17 10:31 Dose: 20 mg Furosemide (Lasix) 20 mg PO DAILY [facility] Last Admin: 02/14/17 10:30 Dose: 20 mg Cefepime HCl 1 gm/ Dextrose 50 mls @ 100 mls/hr IVPB Q12H [facility] Last Admin: 02/14/17 10:25 Dose: 100 mls/hr Vancomycin HCl 1,000 mg/ (Sodium Chloride) 250 mls @ 166.6 mls/hr IVPB Q12H [facility] Last Admin: 02/14/17 11:00 Dose: 166.6 mls/hr Fluconazole 100 mg/ (Miscellaneous) 50 mls @ 100 mls/hr IVPB Q24H [facility] Last Admin: 02/14/17 14:38 Dose: 100 mls/hr Lisinopril (Zestril) 10 mg PO DAILY [facility] Last Admin: 02/14/17 10:31 Dose: 10 mg Midodrine (Proamatine) 10 mg PO Q8 [facility] Last Admin: 02/14/17 05:12 Dose: 10 mg Montelukast Sodium (Singulair) 10 mg PO [facility] Last Admin: 02/13/17 21:59 Dose: 10 mg Potassium Chloride (Potassium Chloride Oral Soln) 20 meq PO DAILY [facility] Last Admin: 02/14/17 10:31 Dose: 20 meq Rosuvastatin Calcium (Crestor) 20 mg PO HS [facility] Last Admin: 02/13/17 21:59 Dose: 20 mg Fluticasone/Salmeterol (Advair Diskus 250/50) 1 puff IH RQ12 [facility] Last Admin: 02/14/17 07:34 Dose: Not Given - Labs Labs: 02/14/17 07:17 02/14/17 07:17 PT 19.4 SECONDS (9.7-12.2) H 02/12/17 06:57 INR 1.7 02/12/17 06:57 APTT 32 SECONDS (21-34) 02/10/17 16:49 - Constitutional Appears: Non-toxic, Confused, Cachectic, Chronically Ill - Head Exam Head Exam: ATRAUMATIC, NORMOCEPHALIC - Eye Exam Eye Exam: PERRL. absent: Scleral icterus - ENT Exam ENT Exam: Mucous Membranes Dry - Neck Exam Neck Exam: absent: Lymphadenopathy - Respiratory Exam Respiratory Exam: Decreased Breath Sounds, Rhonchi - Cardiovascular Exam Cardiovascular Exam: REGULAR RHYTHM, +S1, +S2 - GI/Abdominal Exam GI & Abdominal Exam: Distended, Soft - Rectal Exam Rectal Exam: Deferred - Exam Exam: NORMAL INSPECTION - Extremities Exam Extremities Exam: absent: Pedal Edema - Back Exam Back Exam: absent: CVA tenderness (L), CVA tenderness (R) - Neurological Exam Neurological Exam: Altered - Psychiatric Exam Psychiatric exam: Depressed - Skin Skin Exam: Dry Assessment and Plan (1) Confusion Status: Acute (2) Fever Status: Acute - Assessment and Plan (Free Text) Assessment: all cultures neg work up for stroke vs seizures in progress cont IV rx for now
--- NOTE | 2017-02-15 07:14 | PN ---
DATE: SUMMARY: Patient needs supportive care. Continue treatment, neuro check, one-to-one watch. Sofia Cardona MD
[2017-02-15] MEDS: Fluticasone-Salmeterol 250-50mcg Diskus IH SCH ×2 (07:43→20:10)
[2017-02-15 08:14] LABS: BASO % 0.4 % (0.0-2.0); EOS # 0.1 K/uL (0.0-0.7); HEMATOCRIT 33.4 % (35.0-51.0); LYMPH # 1.9 K/uL (1.0-4.3); LYMPH % 23.8 % (20.0-40.0); MEAN CELL VOLUME 80.3 fL (80.0-94.0); MEAN CORPUSCULAR HEMOGLOBIN 27.8 pg (27.0-31.0); MEAN CORPUSCULAR HGB CONC 34.7 g/dL (33.0-37.0); MEAN PLATELET VOLUME 8.9 fL (7.2-11.7); MONO # 0.6 K/uL (0.0-0.8); MONO % 8.1 % (0.0-10.0); NRBC % 0.1 % (0.0-2.0); RED CELL DISTRIBUTION WIDTH 16.6 % (11.5-14.5); WHITE BLOOD COUNT 7.9 K/uL (4.8-10.8)
[2017-02-15 08:59] LABS: ALB/GLOB RATIO 1.3 (1.0-2.1); ALKALINE PHOSPHATASE 70 U/L (38-126); ALT/SGPT 35 U/L (21-72); AST/SGOT 26 U/L (17-59); BILIRUBIN,TOTAL 1.2 mg/dL (0.2-1.3); BLOOD UREA NITROGEN 12 mg/dL (9-20); CALCIUM 8.1 mg/dl (8.6-10.4); CARBON DIOXIDE 29 mmol/L (22-30); CHLORIDE 101 mmol/L (98-107); GFR AFRICAN-AMERICAN > 60; GLUCOSE,RANDOM 100 mg/dL (75-110); MAGNESIUM 1.6 mg/dL (1.6-2.3); PHOSPHOROUS 3.1 mg/dL (2.5-4.5); POTASSIUM 3.3 mmol/L (3.6-5.2); SODIUM 136 mmol/L (132-148); TOTAL PROTEIN 5.5 g/dL (6.3-8.3)
[2017-02-15] MEDS ORDERED: Potassium Chloride 20 mEq ER Tab PO ONE (10:07)
--- NOTE | 2017-02-15 10:09 | CP.PCM.PN ---
Subjective - Date & Time of Evaluation Date of Evaluation: 02/15/17 Time of Evaluation: 10:15 - Subjective Subjective: PGY2 Medicine note for Dr. Cardona; all management as per Dr. Cardona As per records; patient has not been febrile since admission with first temperature all cultures negative baseline mental status as from previous notes the patient is likely stable for d/c back to half-way will f/u with Dr. Cardona Pt is baseline altered and subjective history taking is therefore unable to be assessed; patient also does not speak Occitan. Objective - Vital Signs/Intake and Output Vital Signs (last 24 hours): Temp Pulse Resp BP Pulse Ox 98.7 F 73 20 115/68 96 02/15/17 08:00 02/15/17 08:00 02/15/17 08:00 02/15/17 08:00 02/15/17 08:00 Intake and Output: 02/15/17 02/15/17 06:59 18:59 Intake Total 60 Output Total 200 Balance -140 - Medications Medications: Current Medications Acetaminophen (Tylenol 325mg Tab) 650 mg PO Q6 PRN PRN Reason: Fever >100.4 F Apixaban (Eliquis) 2.5 mg PO BID [facility] Last Admin: 02/14/17 17:43 Dose: 2.5 mg Aspirin (Aspirin Chewable) 81 mg PO DAILY [facility] Last Admin: 02/14/17 10:30 Dose: 81 mg Carvedilol (Coreg) 12.5 mg PO BID [facility] Last Admin: 02/14/17 17:43 Dose: 12.5 mg Clopidogrel Bisulfate (Plavix) 75 mg PO DAILY [facility] Last Admin: 02/14/17 10:30 Dose: 75 mg Famotidine (Pepcid) 20 mg PO DAILY [facility] Last Admin: 02/14/17 10:31 Dose: 20 mg Furosemide (Lasix) 20 mg PO DAILY [facility] Last Admin: 02/14/17 10:30 Dose: 20 mg Cefepime HCl 1 gm/ Dextrose 50 mls @ 100 mls/hr IVPB Q12H [facility] Last Admin: 02/14/17 21:23 Dose: 100 mls/hr Vancomycin HCl 1,000 mg/ (Sodium Chloride) 250 mls @ 166.6 mls/hr IVPB Q12H [facility] Last Admin: 02/14/17 22:05 Dose: 166.6 mls/hr Fluconazole 100 mg/ (Miscellaneous) 50 mls @ 100 mls/hr IVPB Q24H [facility] Last Admin: 02/14/17 14:38 Dose: 100 mls/hr Lisinopril (Zestril) 10 mg PO DAILY [facility] Last Admin: 02/14/17 10:31 Dose: 10 mg Midodrine (Proamatine) 10 mg PO Q8 [facility] Last Admin: 02/15/17 05:25 Dose: 10 mg Montelukast Sodium (Singulair) 10 mg PO HS [facility] Last Admin: 02/14/17 21:23 Dose: 10 mg Potassium Chloride (Potassium Chloride Oral Soln) 20 meq PO DAILY [facility] Last Admin: 02/14/17 10:31 Dose: 20 meq Potassium Chloride (K-Dur 20 Meq Er Tab) 40 meq PO ONCE ONE Stop: 02/15/17 10:08 Rosuvastatin Calcium (Crestor) 20 mg PO [facility] Last Admin: 02/14/17 21:36 Dose: 20 mg Fluticasone/Salmeterol (Advair Diskus 250/50) 1 puff IH RQ12 [facility] Last Admin: 02/15/17 07:43 Dose: Not Given - Labs Labs: 02/15/17 07:54 02/15/17 07:54 PT 19.4 SECONDS (9.7-12.2) H 02/12/17 06:57 INR 1.7 02/12/17 06:57 APTT 32 SECONDS (21-34) 02/10/17 16:49 - Constitutional Appears: Non-toxic - Head Exam Head Exam: ATRAUMATIC - Eye Exam Eye Exam: absent: Nystagmus, Scleral icterus - ENT Exam ENT Exam: Mucous Membranes Moist - Neck Exam Neck Exam: Full ROM - Respiratory Exam Respiratory Exam: Clear to Ausculation Bilateral - Cardiovascular Exam Cardiovascular Exam: REGULAR RHYTHM (AICD non painful to palpation) - GI/Abdominal Exam GI & Abdominal Exam: Soft - Extremities Exam Extremities Exam: absent: Calf Tenderness - Back Exam Back Exam: absent: CVA tenderness (L), CVA tenderness (R) - Neurological Exam Neurological Exam: absent: Alert, Oriented x3 (patient is unable to follow commands; opens eyes to name/and when touched however is not able to communicate needs [id number] able to protect airway) - Psychiatric Exam Additional comments: unable to assess due to baseline mental status - Skin Skin Exam: Warm Assessment and Plan - Assessment and Plan (Free Text) Assessment: Fever;afebrile 3 days 02/15: cultures negative to date; no WBC, day 5 of IV abx; all cultures negative (urine, blood) 02/12: cultures so far negative, WBC is trending down, day 2 of IV antibiotics, Dr. Garay consulted. Recorded 101.1 last night. Cefepime 1g IV q12H started 02/11. Vancomycin 1000mg IV q12H. started 02/11. Tylenol PRN. F/U blood culture. AMS;chronic 02/15: unchanged; as per previous notes the patient has been known to be altered at baseline and this appears to be patients baseline; RPR HIV B12 B1 all WNL or negative -ammonia WNL -electrolytes otherwise normal except for mild hypokalemia 02/12: CT of the head, Neurology consulted, follow up RPR, Hep panel, HIV, B12, B1. Dr. Chavis consulted, he may need further work up such as MRI or LP. Also monitor CMP, CBC. Ordered for Lyme and TB as well. K was 3.2, gave liquid potassium. Speech recomends thin liquid diet, aspirations precautions. Oral thrush; most likely from chronic steroid use with COPD and patient not washing mouth out afterwords 02/15: stable 02/12: Dr. Garay, consulted. Pt was able to swallow water in ED. Diflucan 100mg IV daily started 02/11. Liquid diet as per speech and swallow CHF; chronic 02/12: Cardiology consulted, need to follow up. Continue Coreg 12.5mg PO BID, Lasix 20mg PO daily, midodrine 10mg PO q8H and Lisinopril 10mg PO daily. Hx of CAD Continue ASA 81mg PO daily, Crestor 20mg PO HS, Eliquis 2.5mg PO BID, Plavix 75mg PO daily. COPD;chronic and stable Continue Advair, Singulair. Prophylactic measure Pepcid, Eliquis/Plavix. SCD contraindicated for fall risk. PT/OT. Dispo: patient is likely stable for d/c back to half-way rec liquid diet as per speech and swallow no source of infection at this point; likely viral illness that resolved itself and abx are not needed will give oral k supplementation through diet as patient is not eating well/ failure to thrive patient is recommended to have POLST and code status with family as he is unable to advocate for himself which can be done as outpatient Management as per Dr. Cardona
[2017-02-15] MEDS: Potassium Chloride 20 mEq/15 ml LIQ UD PO SCH (10:58)
[2017-02-15] MEDS ORDERED: Potassium Chloride 20 mEq/15 ml LIQ UD PO ONE (11:00)
--- NOTE | 2017-02-15 13:17 | CP.PCM.PN ---
Subjective - Date & Time of Evaluation Date of Evaluation: 02/15/17 Time of Evaluation: 13:15 - Subjective Subjective: Mr. Pickard was seen and examined at the bedside. He is responsive to tactile stimuli, but no verbal response. He is not in any kind of distress. He remains on 1:1 sitter for patient safety. Objective - Vital Signs/Intake and Output Vital Signs (last 24 hours): Temp Pulse Resp BP Pulse Ox 98.7 F 73 20 115/68 96 02/15/17 08:00 02/15/17 08:00 02/15/17 08:00 02/15/17 10:52 02/15/17 08:00 Intake and Output: 02/15/17 02/15/17 06:59 18:59 Intake Total 60 Output Total 200 Balance -140 - Medications Medications: Current Medications Acetaminophen (Tylenol 325mg Tab) 650 mg PO Q6 PRN PRN Reason: Fever >100.4 F Apixaban (Eliquis) 2.5 mg PO BID [facility] Last Admin: 02/15/17 10:51 Dose: 2.5 mg Aspirin (Aspirin Chewable) 81 mg PO DAILY [facility] Last Admin: 02/15/17 10:51 Dose: 81 mg Carvedilol (Coreg) 12.5 mg PO BID [facility] Last Admin: 02/15/17 10:52 Dose: 12.5 mg Clopidogrel Bisulfate (Plavix) 75 mg PO DAILY [facility] Last Admin: 02/15/17 10:58 Dose: 75 mg Famotidine (Pepcid) 20 mg PO DAILY [facility] Last Admin: 02/15/17 10:58 Dose: 20 mg Furosemide (Lasix) 20 mg PO DAILY [facility] Last Admin: 02/15/17 10:52 Dose: 20 mg Cefepime HCl 1 gm/ Dextrose 50 mls @ 100 mls/hr IVPB Q12H [facility] Last Admin: 02/15/17 10:30 Dose: 100 mls/hr Vancomycin HCl 1,000 mg/ (Sodium Chloride) 250 mls @ 166.6 mls/hr IVPB Q12H [facility] Last Admin: 02/15/17 11:00 Dose: 166.6 mls/hr Fluconazole 100 mg/ (Miscellaneous) 50 mls @ 100 mls/hr IVPB Q24H [facility] Last Admin: 02/14/17 14:38 Dose: 100 mls/hr Lisinopril (Zestril) 10 mg PO DAILY [facility] Last Admin: 02/15/17 10:52 Dose: 10 mg Midodrine (Proamatine) 10 mg PO Q8 [facility] Last Admin: 02/15/17 05:25 Dose: 10 mg Montelukast Sodium (Singulair) 10 mg PO HS [facility] Last Admin: 02/14/17 21:23 Dose: 10 mg Potassium Chloride (Potassium Chloride Oral Soln) 20 meq PO DAILY [facility] Last Admin: 02/15/17 10:58 Dose: 20 meq Rosuvastatin Calcium (Crestor) 20 mg PO HS [facility] Last Admin: 02/14/17 21:36 Dose: 20 mg Fluticasone/Salmeterol (Advair Diskus 250/50) 1 puff IH RQ12 [facility] Last Admin: 02/15/17 07:43 Dose: Not Given - Labs Labs: 02/15/17 07:54 02/15/17 07:54 PT 19.4 SECONDS (9.7-12.2) H 02/12/17 06:57 INR 1.7 02/12/17 06:57 APTT 32 SECONDS (21-34) 02/10/17 16:49 - Constitutional Appears: No Acute Distress - Head Exam Head Exam: ATRAUMATIC - Neurological Exam Neurological Exam: Awake Neuro motor strength exam: Left Upper Extremity: 2/1, Right Upper Extremity: 2/1 , Left Lower Extremity: 2/1, Right Lower Extremity: 2/1 Additional comments: Aphasic, not dysarthric. Left facial droop noted. Left side upper extremity asymmetrically weak compared with right. Bilateral lower extremities are weak and no movement was initiated. Reflexes were elicited. Plantar responses were equivocal. Gait could not be assessed. Sensation appeared to be intact throughout to pain. Assessment and Plan (1) Encephalopathy acute Assessment & Plan: Case discussed with Dr. Chavis, continue all current medical, physical, and occupational therapies. Pending EEG results. Status: Acute
[2017-02-15] MEDS: Fluconazole IV 200mg/100 ml NS 100 MG in Premixed IV 1 EA IVPB SCH (13:37)
[2017-02-15] MEDS: POLYETHYLENE GLYCOL 3350 17 GM/Dose PACKET PO PRN (15:12)
--- NOTE | 2017-02-15 16:34 | PCM.EEG ---
Electroencephalogram Report - Electroencephalogram Report Procedure Date: 02/15/17 Interpretation: Indication: Altered mental status. Medications were reviewed. Technical: This is a digitally recorded electroencephalogram. The international 10-20 electrode placement system is used for scalp electrode placement. Eighteen channels of scalp EEG are recorded Another channel was used for for ECG. The data are stored digitally and reviewed in reformatted montages for optimal display. Background: 9 to 10 hertz alpha activity was seen. Maximal over the posterior head region. Focal abnormality: Intermittent focal slowing was seen. Mainly over the Right temporal area. Impression: This EEG is abnormal. Some focal slowing was seen, suggestive of a focal abnormality. Clinical correlation is needed.
--- NOTE | 2017-02-16 07:44 | CP.PCM.PN ---
Subjective - Date & Time of Evaluation Date of Evaluation: 02/16/17 Time of Evaluation: 09:20 - Subjective Subjective: PGY2 Medicine Note for Dr. Cardona; all management as per Dr. Cardona Pt seen and examined at bedside; patient is non verbal but arousable; unable to perform subjective review of systems. Objective - Vital Signs/Intake and Output Vital Signs (last 24 hours): Temp Pulse Resp BP Pulse Ox 98.4 F 72 20 107/67 97 02/16/17 07:36 02/16/17 07:36 02/16/17 07:36 02/16/17 07:36 02/16/17 07:36 Intake and Output: 02/16/17 02/16/17 06:59 18:59 Intake Total 905 100 Output Total 700 300 Balance 205 -200 - Medications Medications: Current Medications Acetaminophen (Tylenol 325mg Tab) 650 mg PO Q6 PRN PRN Reason: Fever >100.4 F Apixaban (Eliquis) 2.5 mg PO BID [facility] Last Admin: 02/15/17 17:38 Dose: 2.5 mg Aspirin (Aspirin Chewable) 81 mg PO DAILY [facility] Last Admin: 02/15/17 10:51 Dose: 81 mg Carvedilol (Coreg) 12.5 mg PO BID [facility] Last Admin: 02/15/17 17:37 Dose: 12.5 mg Chlorpromazine (Thorazine) 25 mg IM Q6 [facility] Last Admin: 02/16/17 05:43 Dose: 25 mg Clopidogrel Bisulfate (Plavix) 75 mg PO DAILY [facility] Last Admin: 02/15/17 10:58 Dose: 75 mg Famotidine (Pepcid) 20 mg PO DAILY [facility] Last Admin: 02/15/17 10:58 Dose: 20 mg Furosemide (Lasix) 20 mg PO DAILY [facility] Last Admin: 02/15/17 10:52 Dose: 20 mg Cefepime HCl 1 gm/ Dextrose 50 mls @ 100 mls/hr IVPB Q12H [facility] Last Admin: 02/15/17 21:36 Dose: 100 mls/hr Vancomycin HCl 1,000 mg/ (Sodium Chloride) 250 mls @ 166.6 mls/hr IVPB Q12H [facility] Last Admin: 02/15/17 21:37 Dose: 166.6 mls/hr Fluconazole 100 mg/ (Miscellaneous) 50 mls @ 100 mls/hr IVPB Q24H [facility] Last Admin: 02/15/17 13:37 Dose: 100 mls/hr Lisinopril (Zestril) 10 mg PO DAILY [facility] Last Admin: 02/15/17 10:52 Dose: 10 mg Midodrine (Proamatine) 10 mg PO Q8 [facility] Last Admin: 02/16/17 05:43 Dose: 10 mg Montelukast Sodium (Singulair) 10 mg PO HS [facility] Last Admin: 02/15/17 21:41 Dose: 10 mg Polyethylene Glycol (Miralax) 17 gm PO BID PRN PRN Reason: Constipation Potassium Chloride (Potassium Chloride Oral Soln) 20 meq PO DAILY [facility] Last Admin: 02/15/17 10:58 Dose: 20 meq Rosuvastatin Calcium (Crestor) 20 mg PO HS [facility] Last Admin: 02/15/17 21:35 Dose: 20 mg Fluticasone/Salmeterol (Advair Diskus 250/50) 1 puff IH RQ12 [facility] Last Admin: 02/15/17 20:10 Dose: Not Given - Labs Labs: 02/15/17 07:54 02/15/17 07:54 PT 19.4 SECONDS (9.7-12.2) H 02/12/17 06:57 INR 1.7 02/12/17 06:57 APTT 32 SECONDS (21-34) 02/10/17 16:49 - Constitutional Appears: Non-toxic - Head Exam Head Exam: ATRAUMATIC - Neck Exam Neck Exam: Full ROM - Respiratory Exam Respiratory Exam: Clear to Ausculation Bilateral, NORMAL BREATHING PATTERN. absent: Rales, Rhonchi, Wheezes - Cardiovascular Exam Cardiovascular Exam: REGULAR RHYTHM - GI/Abdominal Exam GI & Abdominal Exam: Soft. absent: Tenderness - Extremities Exam Extremities Exam: absent: Calf Tenderness - Back Exam Back Exam: NORMAL INSPECTION. absent: CVA tenderness (L), CVA tenderness (R) - Neurological Exam Neurological Exam: Awake - Skin Skin Exam: Warm Assessment and Plan - Assessment and Plan (Free Text) Assessment: Fever;afebrile 4 days 12: cultures negative; no WBC 02/15: cultures negative to date; no WBC, day 5 of IV abx; all cultures negative (urine, blood) 02/12: cultures so far negative, WBC is trending down, day 2 of IV antibiotics, Dr. Garay consulted. Recorded 101.1 last night. Cefepime 1g IV q12H started 02/11. Vancomycin 1000mg IV q12H. started 02/11. Tylenol PRN. F/U blood culture. AMS;chronic 02/16: EEG report abnormal as per Dr. Chavis; as patient has been altered for quite some time he will need further neurological f/u if warranted 02/15: unchanged; as per previous notes the patient has been known to be altered at baseline and this appears to be patients baseline; RPR HIV B12 B1 all WNL or negative -ammonia WNL -electrolytes otherwise normal except for mild hypokalemia 02/12: CT of the head, Neurology consulted, follow up RPR, Hep panel, HIV, B12, B1. Dr. Chavis consulted, he may need further work up such as MRI or LP. Also monitor CMP, CBC. Ordered for Lyme and TB as well. K was 3.2, gave liquid potassium. Speech recomends thin liquid diet, aspirations precautions. Oral thrush; most likely from chronic steroid use with COPD and patient not washing mouth out afterwords; resolved 02/15: stable 02/12: Dr. Garay, consulted. Pt was able to swallow water in ED. Diflucan 100mg IV daily started 02/11. Liquid diet as per speech and swallow CHF; chronic Continue Coreg 12.5mg PO BID, Lasix 20mg PO daily, midodrine 10mg PO q8H and Lisinopril 10mg PO daily. Hx of CAD Continue ASA 81mg PO daily, Crestor 20mg PO HS, Eliquis 2.5mg PO BID, Plavix 75mg PO daily. COPD;chronic and stable Continue Advair, Singulair. Prophylactic measure Pepcid, Eliquis/Plavix. SCD contraindicated for fall risk. PT/OT. Dispo: patient is likely stable for d/c back to [facility] liquid diet as per speech and swallow no source of infection at this point; likely viral illness that resolved itself and abx are not needed patient is recommended to have POLST and code status with family as he is unable to advocate for himself which can be done as outpatient Management as per Dr. Cardona
[2017-02-16 08:12] LABS: LYME DISEASE SCREEN <0.90 index
[2017-02-16] MEDS: Fluticasone-Salmeterol 250-50mcg Diskus IH SCH ×2 (08:39→20:55)
[2017-02-16] MEDS: Potassium Chloride 20 mEq/15 ml LIQ UD PO SCH (09:50)
[2017-02-16 11:34] LABS: BASO % 0.4 % (0.0-2.0); EOS # 0.1 K/uL (0.0-0.7); EOS % 1.5 % (0.0-4.0); HEMATOCRIT 33.4 % (35.0-51.0); LYMPH # 1.5 K/uL (1.0-4.3); LYMPH % 21.6 % (20.0-40.0); MEAN CELL VOLUME 81.7 fL (80.0-94.0); MEAN CORPUSCULAR HEMOGLOBIN 27.3 pg (27.0-31.0); MEAN CORPUSCULAR HGB CONC 33.5 g/dL (33.0-37.0); MEAN PLATELET VOLUME 9.1 fL (7.2-11.7); MONO # 0.6 K/uL (0.0-0.8); MONO % 8.5 % (0.0-10.0); NRBC % 0.1 % (0.0-2.0); RED CELL DISTRIBUTION WIDTH 16.9 % (11.5-14.5); WHITE BLOOD COUNT 6.8 K/uL (4.8-10.8)
[2017-02-16 11:46] LABS: ALKALINE PHOSPHATASE 63 U/L (38-126); ALT/SGPT 36 U/L (21-72); AST/SGOT 27 U/L (17-59); BILIRUBIN,TOTAL 1.3 mg/dL (0.2-1.3); BLOOD UREA NITROGEN 12 mg/dL (9-20); CARBON DIOXIDE 27 mmol/L (22-30); CHLORIDE 102 mmol/L (98-107); GFR AFRICAN-AMERICAN > 60; GLUCOSE,RANDOM 126 mg/dL (75-110); POTASSIUM 3.5 mmol/L (3.6-5.2); SODIUM 135 mmol/L (132-148); TOTAL PROTEIN 5.3 g/dL (6.3-8.3)
[2017-02-16 11:59] LABS: ALB/GLOB RATIO 1.2 (1.0-2.1)
[2017-02-16] MEDS: Fluconazole IV 200mg/100 ml NS 100 MG in Premixed IV 1 EA IVPB SCH (14:07)
[2017-02-16] MEDS: Cefepime IV 1 gm in Dextrose 1 GM/50 ML BAG IVPB SCH (21:23)
[2017-02-17] MEDS: Fluticasone-Salmeterol 250-50mcg Diskus IH SCH ×2 (07:51→19:22)
--- NOTE | 2017-02-17 08:08 | CP.PCM.PN ---
Subjective - Date & Time of Evaluation Date of Evaluation: 02/17/17 Time of Evaluation: 08:06 - Subjective Subjective: Medicine Progress Note Patient seen and examined. No acute changes in clinical condition. The patient is awake and responds appropriately to pain. Patient is smiling and calm. ROS could not be obtained due to baseline mental status decline. Objective - Vital Signs/Intake and Output Vital Signs (last 24 hours): Temp Pulse Resp BP Pulse Ox 98.7 F 85 20 111/68 97 02/16/17 23:52 02/16/17 23:52 02/16/17 23:52 02/16/17 23:52 02/16/17 23:52 Intake and Output: 02/17/17 02/17/17 06:59 18:59 Intake Total 50 Output Total 500 Balance -450 - Medications Medications: Current Medications Acetaminophen (Tylenol 325mg Tab) 650 mg PO Q6 PRN PRN Reason: Fever >100.4 F Apixaban (Eliquis) 2.5 mg PO BID [facility] Last Admin: 02/16/17 17:52 Dose: 2.5 mg Aspirin (Aspirin Chewable) 81 mg PO DAILY [facility] Last Admin: 02/16/17 09:39 Dose: 81 mg Carvedilol (Coreg) 12.5 mg PO BID [facility] Last Admin: 02/16/17 17:50 Dose: 12.5 mg Chlorpromazine (Thorazine) 25 mg IM Q6 PRN PRN Reason: Hiccups Clopidogrel Bisulfate (Plavix) 75 mg PO DAILY [facility] Last Admin: 02/16/17 09:39 Dose: 75 mg Famotidine (Pepcid) 20 mg PO DAILY [facility] Last Admin: 02/16/17 09:39 Dose: 20 mg Furosemide (Lasix) 20 mg PO DAILY [facility] Last Admin: 02/16/17 09:50 Dose: 20 mg Fluconazole 100 mg/ (Miscellaneous) 50 mls @ 100 mls/hr IVPB Q24H [facility] Last Admin: 02/16/17 14:07 Dose: 100 mls/hr Cefepime HCl (Maxipime Iv 1 Gm Premix) 1 gm in 50 mls @ 100 mls/hr IVPB Q12H [facility] Last Admin: 02/16/17 21:23 Dose: 100 mls/hr Vancomycin HCl 1,000 mg/ (Dextrose) 250 mls @ 166.6 mls/hr IVPB Q12H [facility] Lisinopril (Zestril) 10 mg PO DAILY [facility] Last Admin: 02/16/17 09:39 Dose: 10 mg Midodrine (Proamatine) 10 mg PO Q8 [facility] Last Admin: 02/17/17 05:33 Dose: 10 mg Montelukast Sodium (Singulair) 10 mg PO HS [facility] Last Admin: 02/16/17 21:24 Dose: Not Given Polyethylene Glycol (Miralax) 17 gm PO BID PRN PRN Reason: Constipation Potassium Chloride (Potassium Chloride Oral Soln) 20 meq PO DAILY [facility] Last Admin: 02/16/17 09:50 Dose: 20 meq Rosuvastatin Calcium (Crestor) 20 mg PO HS [facility] Last Admin: 02/16/17 21:22 Dose: Not Given Fluticasone/Salmeterol (Advair Diskus 250/50) 1 puff IH RQ12 [facility] Last Admin: 02/17/17 07:51 Dose: Not Given - Labs Labs: 02/16/17 11:19 02/16/17 11:19 PT 19.4 SECONDS (9.7-12.2) H 02/12/17 06:57 INR 1.7 02/12/17 06:57 APTT 32 SECONDS (21-34) 02/10/17 16:49 - Constitutional Appears: Non-toxic, No Acute Distress - Head Exam Head Exam: ATRAUMATIC, NORMOCEPHALIC - Eye Exam Eye Exam: EOMI, Normal appearance - ENT Exam ENT Exam: Mucous Membranes Moist - Respiratory Exam Respiratory Exam: Clear to Ausculation Bilateral, NORMAL BREATHING PATTERN. absent: Wheezes, Respiratory Distress - Cardiovascular Exam Cardiovascular Exam: REGULAR RHYTHM, +S1, +S2 - GI/Abdominal Exam GI & Abdominal Exam: Soft, Normal Bowel Sounds. absent: Distended, Firm, Guarding, Tenderness - Exam Additional comments: Rodas catheter draining pink-tinged urine - Extremities Exam Extremities Exam: Normal Inspection. 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 Chavis; as patient has been altered for quite some time he will need further neurological f/u if warranted RPR, HIV, B12, folate negative 02/10 blood culture negative 02/10 urine culture negative Ammonia normal 02/12 CT head- no acute changes from 12/31, chronic ischemic changes Dr. Chavis consulted, help appreciated- will f/u recommendations Speech therapy recommends thin liquid diet, aspirations precautions. Oral thrush Most likely from chronic steroid use with COPD and patient not washing mouth out afterwords; resolved Dr. Garay, consulted- help appreciated Diflucan 100mg IV daily started 02/11. Liquid diet as per speech and swallow Fever, resolved No fever since admission Cefepime 1g IV q12H started 02/11. Vancomycin 1000mg IV q12H. started 02/11. Tylenol PRN. blood culture negative urine culture negative No source of infection at this point; likely viral illness that resolved itself and abx are not needed upon discharge. CHF; chronic Continue Coreg 12.5mg PO BID, Lasix 20mg PO daily, midodrine 10mg PO q8H and Lisinopril 10mg PO daily. Hx of CAD Continue ASA 81mg PO daily, Crestor 20mg PO HS, Eliquis 2.5mg PO BID, Plavix 75mg PO daily. COPD;chronic and stable Continue Advair, Singulair. Prophylactic measure Pepcid, Eliquis/Plavix. SCD contraindicated for fall risk. PT/OT. Dispo: patient is likely stable for d/c back to [facility] patient is recommended to have POLST and code status with family as he is unable to advocate for himself which can be done as outpatient Management as per Dr. Cardona
[2017-02-17] MEDS: Cefepime IV 1 gm in Dextrose 1 GM/50 ML BAG IVPB SCH ×2 (09:38→21:54)
[2017-02-17] MEDS: Potassium Chloride 20 mEq/15 ml LIQ UD PO SCH (09:42)
--- NOTE | 2017-02-17 12:53 | CP.PCM.PN ---
Subjective - Date & Time of Evaluation Date of Evaluation: 02/17/17 Time of Evaluation: 12:50 - Subjective Subjective: Mr. Pickard was seen and examined at the bedside. He is more alert and able to respond to questions appropriately. He nods and shakes his head for some of his response. He is able to follow simple commands. There was no untoward events overnight. Objective - Vital Signs/Intake and Output Vital Signs (last 24 hours): Temp Pulse Resp BP Pulse Ox 97.7 F 69 12 105/68 98 02/17/17 12:18 02/17/17 12:18 02/17/17 12:18 02/17/17 12:18 02/17/17 12:18 Intake and Output: 02/17/17 02/17/17 06:59 18:59 Intake Total 50 Output Total 500 Balance -450 - Medications Medications: Current Medications Acetaminophen (Tylenol 325mg Tab) 650 mg PO Q6 PRN PRN Reason: Fever >100.4 F Apixaban (Eliquis) 2.5 mg PO BID [facility] Last Admin: 02/17/17 09:40 Dose: 2.5 mg Aspirin (Aspirin Chewable) 81 mg PO DAILY [facility] Last Admin: 02/17/17 09:39 Dose: 81 mg Carvedilol (Coreg) 12.5 mg PO BID [facility] Last Admin: 02/17/17 09:40 Dose: 12.5 mg Chlorpromazine (Thorazine) 25 mg IM Q6 PRN PRN Reason: Hiccups Clopidogrel Bisulfate (Plavix) 75 mg PO DAILY [facility] Last Admin: 02/17/17 09:41 Dose: 75 mg Divalproex Sodium (Depakote Er) 500 mg PO DAILY [facility] Famotidine (Pepcid) 20 mg PO DAILY [facility] Last Admin: 02/17/17 09:41 Dose: 20 mg Furosemide (Lasix) 20 mg PO DAILY [facility] Last Admin: 02/17/17 09:40 Dose: 20 mg Fluconazole 100 mg/ (Miscellaneous) 50 mls @ 100 mls/hr IVPB Q24H [facility] Last Admin: 02/16/17 14:07 Dose: 100 mls/hr Cefepime HCl (Maxipime Iv 1 Gm Premix) 1 gm in 50 mls @ 100 mls/hr IVPB Q12H [facility] Last Admin: 02/17/17 09:38 Dose: 100 mls/hr Vancomycin HCl 1,000 mg/ (Dextrose) 250 mls @ 166.6 mls/hr IVPB Q12H [facility] Last Admin: 02/17/17 10:21 Dose: 166.6 mls/hr Lisinopril (Zestril) 10 mg PO DAILY [facility] Last Admin: 02/17/17 09:42 Dose: 10 mg Midodrine (Proamatine) 10 mg PO Q8 [facility] Last Admin: 02/17/17 05:33 Dose: 10 mg Montelukast Sodium (Singulair) 10 mg PO HS [facility] Last Admin: 02/16/17 21:24 Dose: Not Given Polyethylene Glycol (Miralax) 17 gm PO BID PRN PRN Reason: Constipation Potassium Chloride (Potassium Chloride Oral Soln) 20 meq PO DAILY [facility] Last Admin: 02/17/17 09:42 Dose: 20 meq Rosuvastatin Calcium (Crestor) 20 mg PO HS [facility] Last Admin: 02/16/17 21:22 Dose: Not Given Fluticasone/Salmeterol (Advair Diskus 250/50) 1 puff IH RQ12 [facility] Last Admin: 02/17/17 07:51 Dose: Not Given - Labs Labs: 02/16/17 11:19 02/16/17 11:19 PT 19.4 SECONDS (9.7-12.2) H 02/12/17 06:57 INR 1.7 02/12/17 06:57 APTT 32 SECONDS (21-34) 02/10/17 16:49 - Constitutional Appears: No Acute Distress - Head Exam Head Exam: ATRAUMATIC, NORMAL INSPECTION, NORMOCEPHALIC - Neurological Exam Neurological Exam: Alert, Awake Neuro motor strength exam: Left Upper Extremity: 5, Right Upper Extremity: 5, Left Lower Extremity: 3, Right Lower Extremity: 3 Additional comments: Neurological improved from previous examination. Assessment and Plan (1) Encephalopathy acute Assessment & Plan: Case discussed with Dr. Chavis, continue all current medical, physical, and occupational therapies. Status: Acute (2) Seizure Assessment & Plan: Case discussed with Dr. Chavis, with EEG abnormal showing evidence of seizure, will start with Depakote ER 500 mg PO daily. Status: Acute
[2017-02-17] MEDS ORDERED: Divalproex 500 mg ER Tab PO SCH (13:00)
[2017-02-17] MEDS: Fluconazole IV 200mg/100 ml NS 100 MG in Premixed IV 1 EA IVPB SCH (14:37)
[2017-02-17 15:47] VITALS: RESP 20
--- NOTE | 2017-02-17 18:11 | CP.PCM.PN ---
Subjective - Date & Time of Evaluation Date of Evaluation: 02/17/17 Time of Evaluation: 09:00 - Subjective Subjective: events noted more awake cont iv rx Objective - Vital Signs/Intake and Output Vital Signs (last 24 hours): Temp Pulse Resp BP Pulse Ox 100.1 F H 72 20 97/65 L 100 02/17/17 15:20 02/17/17 16:24 02/17/17 15:20 02/17/17 16:24 02/17/17 16:24 Intake and Output: 02/17/17 02/17/17 06:59 18:59 Intake Total 50 400 Output Total 500 500 Balance -450 -100 - Medications Medications: Current Medications Acetaminophen (Tylenol 325mg Tab) 650 mg PO Q6 PRN PRN Reason: Fever >100.4 F Apixaban (Eliquis) 2.5 mg PO BID [facility] Last Admin: 02/17/17 09:40 Dose: 2.5 mg Aspirin (Aspirin Chewable) 81 mg PO DAILY [facility] Last Admin: 02/17/17 09:39 Dose: 81 mg Carvedilol (Coreg) 12.5 mg PO BID [facility] Last Admin: 02/17/17 09:40 Dose: 12.5 mg Chlorpromazine (Thorazine) 25 mg IM Q6 PRN PRN Reason: Hiccups Clopidogrel Bisulfate (Plavix) 75 mg PO DAILY [facility] Last Admin: 02/17/17 09:41 Dose: 75 mg Divalproex Sodium (Depakote Sprinkles) 250 mg PO BID [facility] Famotidine (Pepcid) 20 mg PO DAILY [facility] Last Admin: 02/17/17 09:41 Dose: 20 mg Furosemide (Lasix) 20 mg PO DAILY [facility] Last Admin: 02/17/17 09:40 Dose: 20 mg Cefepime HCl (Maxipime Iv 1 Gm Premix) 1 gm in 50 mls @ 100 mls/hr IVPB Q12H [facility] Last Admin: 02/17/17 09:38 Dose: 100 mls/hr Vancomycin/Sodium Chloride (Vancomycin 1 Gm/Ns 200 Ml) 1 gm in 200 mls @ 133.333 mls/hr IVPB Q12H [facility] Stop: 02/22/17 22:01 Lisinopril (Zestril) 10 mg PO DAILY [facility] Last Admin: 02/17/17 09:42 Dose: 10 mg Midodrine (Proamatine) 10 mg PO Q8 [facility] Last Admin: 02/17/17 14:39 Dose: 10 mg Montelukast Sodium (Singulair) 10 mg PO HS [facility] Last Admin: 02/16/17 21:24 Dose: Not Given Polyethylene Glycol (Miralax) 17 gm PO BID PRN PRN Reason: Constipation Potassium Chloride (Potassium Chloride Oral Soln) 20 meq PO DAILY [facility] Last Admin: 02/17/17 09:42 Dose: 20 meq Rosuvastatin Calcium (Crestor) 20 mg PO HS [facility] Last Admin: 02/16/17 21:22 Dose: Not Given Fluticasone/Salmeterol (Advair Diskus 250/50) 1 puff IH RQ12 [facility] Last Admin: 02/17/17 07:51 Dose: Not Given - Labs Labs: 02/16/17 11:19 02/16/17 11:19 PT 19.4 SECONDS (9.7-12.2) H 02/12/17 06:57 INR 1.7 02/12/17 06:57 APTT 32 SECONDS (21-34) 02/10/17 16:49 - Constitutional Appears: Non-toxic, Chronically Ill - Head Exam Head Exam: NORMOCEPHALIC - Eye Exam Eye Exam: PERRL - ENT Exam ENT Exam: Mucous Membranes Dry, Normal External Ear Exam - Neck Exam Neck Exam: absent: Lymphadenopathy - Respiratory Exam Respiratory Exam: Decreased Breath Sounds - Cardiovascular Exam Cardiovascular Exam: REGULAR RHYTHM - GI/Abdominal Exam GI & Abdominal Exam: Distended, Soft - Rectal Exam Rectal Exam: Deferred, NORMAL INSPECTION - Exam Exam: NORMAL INSPECTION Assessment and Plan (1) Confusion Status: Acute (2) Fever Status: Acute - Assessment and Plan (Free Text) Plan: await hep c pcr
[2017-02-17] MEDS: Divalproex 125 mg Sprinkle Capsule PO SCH (19:00)
[2017-02-17] MEDS: Vancomycin 1 gm/NS 200 ml 1 GM/200 ML BAG IVPB SCH (22:23)
[2017-02-18] MEDS: Fluticasone-Salmeterol 250-50mcg Diskus IH SCH ×2 (07:39→19:33)
--- NOTE | 2017-02-18 07:44 | CP.PCM.PN ---
Subjective - Date & Time of Evaluation Date of Evaluation: 02/18/17 Time of Evaluation: 10:36 - Subjective Subjective: Medicine Progress Note Patient seen and examined. Patient is awake and alert. Clinical condition is slowly improving. He is more responsive today and is speaking with attending Dr Cardona in Kiswahili. The patient also asked "how are you" in Turkmen. Patient denies pain, dizziness, headache, shortness of breath. No acute events overnight. Objective - Vital Signs/Intake and Output Vital Signs (last 24 hours): Temp Pulse Resp BP Pulse Ox 98.6 F 76 20 121/73 95 02/18/17 00:00 02/18/17 00:00 02/18/17 00:00 02/18/17 00:00 02/18/17 00:00 Intake and Output: 02/18/17 02/18/17 06:59 18:59 Intake Total 580 Output Total 350 Balance 230 - Medications Medications: Current Medications Acetaminophen (Tylenol 325mg Tab) 650 mg PO Q6 PRN PRN Reason: Fever >100.4 F Apixaban (Eliquis) 2.5 mg PO BID [facility] Last Admin: 02/17/17 19:00 Dose: Not Given Aspirin (Aspirin Chewable) 81 mg PO DAILY [facility] Last Admin: 02/17/17 09:39 Dose: 81 mg Carvedilol (Coreg) 12.5 mg PO BID [facility] Last Admin: 02/17/17 19:19 Dose: Not Given Chlorpromazine (Thorazine) 25 mg IM Q6 PRN PRN Reason: Hiccups Clopidogrel Bisulfate (Plavix) 75 mg PO DAILY [facility] Last Admin: 02/17/17 09:41 Dose: 75 mg Divalproex Sodium (Depakote Sprinkles) 250 mg PO BID [facility] Last Admin: 02/17/17 19:00 Dose: Not Given Famotidine (Pepcid) 20 mg PO DAILY [facility] Last Admin: 02/17/17 09:41 Dose: 20 mg Furosemide (Lasix) 20 mg PO DAILY [facility] Last Admin: 02/17/17 09:40 Dose: 20 mg Cefepime HCl (Maxipime Iv 1 Gm Premix) 1 gm in 50 mls @ 100 mls/hr IVPB Q12H [facility] Last Admin: 02/17/17 21:54 Dose: 100 mls/hr Vancomycin/Sodium Chloride (Vancomycin 1 Gm/Ns 200 Ml) 1 gm in 200 mls @ 133.333 mls/hr IVPB Q12H [facility] Stop: 02/22/17 22:01 Last Admin: 02/17/17 22:23 Dose: 133.333 mls/hr Lisinopril (Zestril) 10 mg PO DAILY [facility] Last Admin: 02/17/17 09:42 Dose: 10 mg Midodrine (Proamatine) 10 mg PO Q8 [facility] Last Admin: 02/18/17 05:22 Dose: 10 mg Montelukast Sodium (Singulair) 10 mg PO HS [facility] Last Admin: 02/17/17 22:01 Dose: 10 mg Polyethylene Glycol (Miralax) 17 gm PO BID PRN PRN Reason: Constipation Potassium Chloride (Potassium Chloride Oral Soln) 20 meq PO DAILY [facility] Last Admin: 02/17/17 09:42 Dose: 20 meq Rosuvastatin Calcium (Crestor) 20 mg PO [facility] Last Admin: 02/17/17 22:01 Dose: 20 mg Fluticasone/Salmeterol (Advair Diskus 250/50) 1 puff IH RQ12 [facility] Last Admin: 02/18/17 07:39 Dose: Not Given - Labs Labs: 02/16/17 11:19 02/16/17 11:19 PT 19.4 SECONDS (9.7-12.2) H 02/12/17 06:57 INR 1.7 02/12/17 06:57 APTT 32 SECONDS (21-34) 02/10/17 16:49 - Constitutional Appears: Non-toxic, No Acute Distress - Head Exam Head Exam: ATRAUMATIC, NORMOCEPHALIC - Eye Exam Eye Exam: EOMI, Normal appearance - ENT Exam ENT Exam: Mucous Membranes Moist - Respiratory Exam Respiratory Exam: Clear to Ausculation Bilateral, NORMAL BREATHING PATTERN. absent: Wheezes, Respiratory Distress - Cardiovascular Exam Cardiovascular Exam: REGULAR RHYTHM, +S1, +S2 - GI/Abdominal Exam GI & Abdominal Exam: Soft, Normal Bowel Sounds. absent: Distended, Firm, Guarding, Tenderness - Exam Additional comments: Rodas catheter - Extremities Exam Extremities Exam: Normal Inspection. 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 Chavis Started Keppra 500mg PO daily RPR, HIV, B12, folate negative 02/10 blood culture negative 02/10 urine culture negative Ammonia normal 02/12 CT head- no acute changes from 12/31, chronic ischemic changes Dr. Chavis consulted, help appreciated- will f/u recommendations Speech therapy recommends thin liquid diet, aspirations precautions. Oral thrush, resolved Most likely from chronic steroid use with COPD and patient not washing mouth out afterwords Dr. Garay, consulted- help appreciated Diflucan 100mg IV daily started 02/11, last dose on 02/17 Liquid diet as per speech and swallow Fever, resolved No fever since admission Cefepime 1g IV q12H started 02/11. Vancomycin 1000mg IV q12H. started 02/11. Tylenol PRN. blood culture negative urine culture negative No source of infection at this point; likely viral illness that resolved itself and abx are not needed upon discharge. CHF; chronic Continue Coreg 12.5mg PO BID, Lasix 20mg PO daily, midodrine 10mg PO q8H and Lisinopril 10mg PO daily. Hx of CAD Continue ASA 81mg PO daily, Crestor 20mg PO HS, Eliquis 2.5mg PO BID, Plavix 75mg PO daily. COPD;chronic and stable Continue Advair, Singulair. Prophylactic measure Pepcid, Eliquis/Plavix. SCD contraindicated for fall risk. PT/OT. Dispo: patient is likely stable for d/c back to [facility] patient is recommended to have POLST and code status with family as he is unable to advocate for himself which can be done as outpatient Management as per Dr. Cardona
[2017-02-18 08:18] LABS: BLOOD UREA NITROGEN 17 mg/dL (9-20); CARBON DIOXIDE 27 mmol/L (22-30); CHLORIDE 102 mmol/L (98-107); GFR AFRICAN-AMERICAN > 60; GLUCOSE,RANDOM 105 mg/dL (75-110); POTASSIUM 3.4 mmol/L (3.6-5.2); SODIUM 136 mmol/L (132-148)
[2017-02-18] MEDS ORDERED: Potassium Chloride 20 mEq ER Tab PO ONE (09:28)
[2017-02-18 10:54] LABS: HEPATITIS C VIRAL RNA QUAL Not detected
[2017-02-18] MEDS: Cefepime IV 1 gm in Dextrose 1 GM/50 ML BAG IVPB SCH ×2 (10:58→21:34)
[2017-02-18] MEDS: Vancomycin 1 gm/NS 200 ml 1 GM/200 ML BAG IVPB SCH ×2 (11:07→22:13)
[2017-02-18] MEDS: Potassium Chloride 20 mEq/15 ml LIQ UD PO SCH (11:10)
[2017-02-18] MEDS: Divalproex 125 mg Sprinkle Capsule PO SCH ×2 (11:44→18:03)
--- NOTE | 2017-02-18 13:59 | CP.PCM.PN ---
Subjective - Date & Time of Evaluation Date of Evaluation: 02/18/17 Time of Evaluation: 13:57 - Subjective Subjective: Mr. Pikcard was seen and examined at the bedside. He is alert with episode of confusion. He does not know time (1996), unable to verbalize person and place. He is able to follow simple commands such as raising his extremities and squeezing his hand. He denies any headache, dizziness, nausea, or vomiting. There was no untoward events overnight. Objective - Vital Signs/Intake and Output Vital Signs (last 24 hours): Temp Pulse Resp BP Pulse Ox 98.3 F 78 20 116/69 99 02/18/17 08:44 02/18/17 08:44 02/18/17 08:44 02/18/17 11:12 02/18/17 08:44 Intake and Output: 02/18/17 02/18/17 06:59 18:59 Intake Total 580 Output Total 350 Balance 230 - Medications Medications: Current Medications Acetaminophen (Tylenol 325mg Tab) 650 mg PO Q6 PRN PRN Reason: Fever >100.4 F Apixaban (Eliquis) 2.5 mg PO BID [facility] Last Admin: 02/18/17 11:11 Dose: 2.5 mg Aspirin (Aspirin Chewable) 81 mg PO DAILY [facility] Last Admin: 02/18/17 11:10 Dose: 81 mg Carvedilol (Coreg) 12.5 mg PO BID [facility] Last Admin: 02/18/17 11:12 Dose: 12.5 mg Chlorpromazine (Thorazine) 25 mg IM Q6 PRN PRN Reason: Hiccups Clopidogrel Bisulfate (Plavix) 75 mg PO DAILY [facility] Last Admin: 02/18/17 11:10 Dose: 75 mg Divalproex Sodium (Depakote Sprinkles) 250 mg PO BID [facility] Last Admin: 02/18/17 11:44 Dose: 250 mg Famotidine (Pepcid) 20 mg PO DAILY [facility] Last Admin: 02/18/17 11:10 Dose: 20 mg Furosemide (Lasix) 20 mg PO DAILY [facility] Last Admin: 02/18/17 11:10 Dose: 20 mg Cefepime HCl (Maxipime Iv 1 Gm Premix) 1 gm in 50 mls @ 100 mls/hr IVPB Q12H [facility] Last Admin: 02/18/17 10:58 Dose: 100 mls/hr Vancomycin/Sodium Chloride (Vancomycin 1 Gm/Ns 200 Ml) 1 gm in 200 mls @ 133.333 mls/hr IVPB Q12H [facility] Stop: 02/22/17 22:01 Last Admin: 02/18/17 11:07 Dose: 133.333 mls/hr Lisinopril (Zestril) 10 mg PO DAILY [facility] Last Admin: 02/18/17 11:10 Dose: 10 mg Midodrine (Proamatine) 10 mg PO Q8 [facility] Last Admin: 02/18/17 05:22 Dose: 10 mg Montelukast Sodium (Singulair) 10 mg PO HS [facility] Last Admin: 02/17/17 22:01 Dose: 10 mg Polyethylene Glycol (Miralax) 17 gm PO BID PRN PRN Reason: Constipation Potassium Chloride (Potassium Chloride Oral Soln) 20 meq PO DAILY [facility] Last Admin: 02/18/17 11:10 Dose: 20 meq Potassium Chloride (Potassium Chloride Oral Soln) 40 meq PO ONCE ONE Stop: 02/18/17 14:01 Rosuvastatin Calcium (Crestor) 20 mg PO [facility] Last Admin: 02/17/17 22:01 Dose: 20 mg Fluticasone/Salmeterol (Advair Diskus 250/50) 1 puff IH RQ12 [facility] Last Admin: 02/18/17 07:39 Dose: Not Given - Labs Labs: 02/16/17 11:19 02/18/17 06:57 PT 19.4 SECONDS (9.7-12.2) H 02/12/17 06:57 INR 1.7 02/12/17 06:57 APTT 32 SECONDS (21-34) 02/10/17 16:49 - Constitutional Appears: No Acute Distress - Head Exam Head Exam: ATRAUMATIC - Neurological Exam Neurological Exam: Awake Neuro motor strength exam: Left Upper Extremity: 5, Right Upper Extremity: 5, Left Lower Extremity: 2/1, Right Lower Extremity: 2/1 Additional comments: Neurological improved from previous examination. Assessment and Plan (1) Encephalopathy acute Assessment & Plan: Case discussed with Dr. Chavsi, continue all current medical, physical, and occupational therapies. Status: Acute (2) Seizure Assessment & Plan: Case discussed with Dr. Chavis, continue depakote 500 mg PO Q 12. will monitor valproic level. Status: Acute
[2017-02-18] MEDS ORDERED: Potassium Chloride 20 mEq/15 ml LIQ UD PO ONE (14:00)
[2017-02-19] MEDS: Fluticasone-Salmeterol 250-50mcg Diskus IH SCH ×2 (07:39→19:36)
--- NOTE | 2017-02-19 07:42 | CP.PCM.PN ---
Subjective - Date & Time of Evaluation Date of Evaluation: 02/19/17 Time of Evaluation: 07:39 - Subjective Subjective: Pt seen and examined at bedside with Turkmen speaking medical student. Pt is alert and awake, however he continues to exhibit significant confusion. He is not oriented to place and time. He denies any acute discomforts and states that he slept well last night. He denies F/C/N/V/D/C/CP/SOB. Objective - Vital Signs/Intake and Output Vital Signs (last 24 hours): Temp Pulse Resp BP Pulse Ox 98 F 74 20 105/59 L 94 L 02/19/17 00:00 02/19/17 00:00 02/19/17 00:00 02/19/17 00:00 02/19/17 00:00 Intake and Output: 02/19/17 02/19/17 06:59 18:59 Intake Total 250 100 Output Total 900 300 Balance -650 -200 - Medications Medications: Current Medications Acetaminophen (Tylenol 325mg Tab) 650 mg PO Q6 PRN PRN Reason: Fever >100.4 F Apixaban (Eliquis) 2.5 mg PO BID [facility] Last Admin: 02/18/17 18:03 Dose: 2.5 mg Aspirin (Aspirin Chewable) 81 mg PO DAILY [facility] Last Admin: 02/18/17 11:10 Dose: 81 mg Carvedilol (Coreg) 12.5 mg PO BID [facility] Last Admin: 02/18/17 18:04 Dose: 12.5 mg Chlorpromazine (Thorazine) 25 mg IM Q6 PRN PRN Reason: Hiccups Clopidogrel Bisulfate (Plavix) 75 mg PO DAILY [facility] Last Admin: 02/18/17 11:10 Dose: 75 mg Divalproex Sodium (Depakote Sprinkles) 250 mg PO BID [facility] Last Admin: 02/18/17 18:03 Dose: 250 mg Famotidine (Pepcid) 20 mg PO DAILY [facility] Last Admin: 02/18/17 11:10 Dose: 20 mg Furosemide (Lasix) 20 mg PO DAILY [facility] Last Admin: 02/18/17 11:10 Dose: 20 mg Cefepime HCl (Maxipime Iv 1 Gm Premix) 1 gm in 50 mls @ 100 mls/hr IVPB Q12H [facility] Last Admin: 12/07/17 21:34 Dose: 100 mls/hr Vancomycin/Sodium Chloride (Vancomycin 1 Gm/Ns 200 Ml) 1 gm in 200 mls @ 133.333 mls/hr IVPB Q12H [facility] Stop: 02/22/17 22:01 Last Admin: 02/18/17 22:13 Dose: 133.333 mls/hr Lisinopril (Zestril) 10 mg PO DAILY [facility] Last Admin: 02/18/17 11:10 Dose: 10 mg Midodrine (Proamatine) 10 mg PO Q8 [facility] Last Admin: 02/19/17 06:20 Dose: 10 mg Montelukast Sodium (Singulair) 10 mg PO HS [facility] Last Admin: 02/18/17 21:34 Dose: 10 mg Polyethylene Glycol (Miralax) 17 gm PO BID PRN PRN Reason: Constipation Potassium Chloride (Potassium Chloride Oral Soln) 20 meq PO DAILY [facility] Last Admin: 02/18/17 11:10 Dose: 20 meq Rosuvastatin Calcium (Crestor) 20 mg PO HS [facility] Last Admin: 02/18/17 21:34 Dose: 20 mg Fluticasone/Salmeterol (Advair Diskus 250/50) 1 puff IH RQ12 [facility] Last Admin: 02/18/17 19:33 Dose: Not Given - Labs Labs: 02/16/17 11:19 02/18/17 06:57 PT 19.4 SECONDS (9.7-12.2) H 02/12/17 06:57 INR 1.7 02/12/17 06:57 APTT 32 SECONDS (21-34) 02/10/17 16:49 - Constitutional Appears: No Acute Distress - Head Exam Head Exam: ATRAUMATIC, NORMAL INSPECTION - Eye Exam Eye Exam: EOMI, Normal appearance - ENT Exam ENT Exam: Mucous Membranes Moist - Cardiovascular Exam Cardiovascular Exam: REGULAR RHYTHM, +S1, +S2 - GI/Abdominal Exam GI & Abdominal Exam: Soft. absent: Distended, Tenderness - Extremities Exam Extremities Exam: Pedal Edema (joint swelling) - Neurological Exam Neurological Exam: Alert, Awake. 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 Korya Started Keppra 500mg PO daily RPR, HIV, B12, folate negative 02/10 blood culture negative 02/10 urine culture negative Ammonia normal 02/12 CT head- no acute changes from 12/31, chronic ischemic changes Dr. Chavis consulted, help appreciated- will f/u further recommendations. Currently recommending continuing depakote, PT/OT. Speech therapy recommends thin liquid diet, aspirations precautions. 02/19 Valproic Acid level- 11.7. Follow up neuro recs for increased/same Depakote dosage. Oral thrush, resolved Most likely from chronic steroid use with COPD and patient not washing mouth out afterwords Dr. Garay, consulted- help appreciated Diflucan 100mg IV daily started 02/11, last dose on 02/17 Liquid diet as per speech and swallow Fever, resolved No fever since admission Cefepime 1g IV q12H started 02/11. Vancomycin 1000mg IV q12H. started 02/11. Tylenol PRN. blood culture negative urine culture negative No source of infection at this point; likely viral illness that resolved itself and abx are not needed upon discharge. CHF; chronic Stable Continue Coreg 12.5mg PO BID Lasix 20mg PO daily Midodrine 10mg PO q8H Lisinopril 10mg PO daily. Hx of CAD Continue ASA 81mg PO daily Crestor 20mg PO HS Eliquis 2.5mg PO BID Plavix 75mg PO daily. COPD;chronic and stable Continue Advair, Singulair. Prophylactic measure Pepcid, Eliquis/Plavix. SCD contraindicated for fall risk. PT/OT. Dispo: patient is likely stable for [facility] back [facility] patient is recommended to have POLST and code status with family as he is unable to advocate for himself which can be done as outpatient Management as per Dr. Cardona
[2017-02-19] MEDS: Divalproex 125 mg Sprinkle Capsule PO SCH (10:00)
[2017-02-19] MEDS ORDERED: Potassium Chloride 20 mEq ER Tab PO ONE (10:16)
--- NOTE | 2017-02-19 11:50 | CP.PCM.PN ---
Subjective - Date & Time of Evaluation Date of Evaluation: 02/19/17 Time of Evaluation: 11:47 - Subjective Subjective: Mr. Pickard was seen and examined at the bedside. He is alert, opens his eyes with verbal and tactile stimuli. He denies any headache, nause, or vomiting. He is able to follow simple commands such as raising his bilateral upper and lower extremities, squeezing his hands. There was no untoward events overnight. Objective - Vital Signs/Intake and Output Vital Signs (last 24 hours): Temp Pulse Resp BP Pulse Ox 98.1 F 77 20 111/66 99 02/19/17 07:59 02/19/17 07:59 02/19/17 07:59 02/19/17 07:59 02/19/17 07:59 Intake and Output: 02/19/17 02/19/17 06:59 18:59 Intake Total 250 100 Output Total 900 300 Balance -650 -200 - Medications Medications: Current Medications Acetaminophen (Tylenol 325mg Tab) 650 mg PO Q6 PRN PRN Reason: Fever >100.4 F Apixaban (Eliquis) 2.5 mg PO BID [facility] Last Admin: 02/18/17 18:03 Dose: 2.5 mg Aspirin (Aspirin Chewable) 81 mg PO DAILY [facility] Last Admin: 02/18/17 11:10 Dose: 81 mg Carvedilol (Coreg) 12.5 mg PO BID [facility] Last Admin: 02/18/17 18:04 Dose: 12.5 mg Chlorpromazine (Thorazine) 25 mg IM Q6 PRN PRN Reason: Hiccups Clopidogrel Bisulfate (Plavix) 75 mg PO DAILY [facility] Last Admin: 02/18/17 11:10 Dose: 75 mg Divalproex Sodium (Depakote Dr) 500 mg PO BID [facility] Famotidine (Pepcid) 20 mg PO DAILY [facility] Last Admin: 02/18/17 11:10 Dose: 20 mg Furosemide (Lasix) 20 mg PO DAILY [facility] Last Admin: 02/18/17 11:10 Dose: 20 mg Cefepime HCl (Maxipime Iv 1 Gm Premix) 1 gm in 50 mls @ 100 mls/hr IVPB Q12H [facility] Last Admin: 02/18/17 21:34 Dose: 100 mls/hr Vancomycin/Sodium Chloride (Vancomycin 1 Gm/Ns 200 Ml) 1 gm in 200 mls @ 133.333 mls/hr IVPB Q12H [facility] Stop: 02/22/17 22:01 Last Admin: 02/18/17 22:13 Dose: 133.333 mls/hr Lisinopril (Zestril) 10 mg PO DAILY [facility] Last Admin: 02/18/17 11:10 Dose: 10 mg Midodrine (Proamatine) 10 mg PO Q8 [facility] Last Admin: 02/19/17 06:20 Dose: 10 mg Montelukast Sodium (Singulair) 10 mg PO HS [facility] Last Admin: 02/18/17 21:34 Dose: 10 mg Polyethylene Glycol (Miralax) 17 gm PO BID PRN PRN Reason: Constipation Potassium Chloride (Potassium Chloride Oral Soln) 20 meq PO DAILY [facility] Last Admin: 02/18/17 11:10 Dose: 20 meq Rosuvastatin Calcium (Crestor) 20 mg PO HS [facility] Last Admin: 02/18/17 21:34 Dose: 20 mg Fluticasone/Salmeterol (Advair Diskus 250/50) 1 puff IH RQ12 [facility] Last Admin: 02/18/17 19:33 Dose: Not Given - Labs Labs: 02/16/17 11:19 02/18/17 06:57 PT 19.4 SECONDS (9.7-12.2) H 02/12/17 06:57 INR 1.7 02/12/17 06:57 APTT 32 SECONDS (21-34) 02/10/17 16:49 - Constitutional Appears: No Acute Distress - Head Exam Head Exam: ATRAUMATIC - Neurological Exam Neurological Exam: Alert, Awake Neuro motor strength exam: Left Upper Extremity: 5, Right Upper Extremity: 3, Left Lower Extremity: 3, Right Lower Extremity: 5 Additional comments: He is able to move his extremities and sensation remains intact. Assessment and Plan (1) Seizure Assessment & Plan: Case discussed with Dr. Chavis, will do ultrasound of his left shoulder and venous doppler for his left lower extremity. Continue all current medical, physical and occupational therapies. Status: Acute
[2017-02-19] MEDS: Potassium Chloride 20 mEq/15 ml LIQ UD PO SCH (12:13)
[2017-02-19] MEDS: POLYETHYLENE GLYCOL 3350 17 GM/Dose PACKET PO PRN (12:18)
[2017-02-19] MEDS: Vancomycin 1 gm/NS 200 ml 1 GM/200 ML BAG IVPB SCH ×2 (12:21→22:30)
[2017-02-19] MEDS: Cefepime IV 1 gm in Dextrose 1 GM/50 ML BAG IVPB SCH ×2 (12:21→21:51)
[2017-02-19] MEDS ORDERED: Divalproex 500 mg DR Tab PO SCH (18:00)
[2017-02-19] MEDS: Valproic Acid 250 mg/5 ml UD Cup PO SCH (18:44)
[2017-02-20] MEDS: Fluticasone-Salmeterol 250-50mcg Diskus IH SCH ×2 (07:38→19:03)
[2017-02-20] MEDS: Potassium Chloride 20 mEq/15 ml LIQ UD PO SCH (10:17)
[2017-02-20] MEDS: Cefepime IV 1 gm in Dextrose 1 GM/50 ML BAG IVPB SCH ×2 (10:51→21:16)
[2017-02-20] MEDS: Vancomycin 1 gm/NS 200 ml 1 GM/200 ML BAG IVPB SCH ×2 (10:52→21:16)
[2017-02-20] MEDS: Valproic Acid 250 mg/5 ml UD Cup PO SCH ×2 (11:20→17:02)
[2017-02-21] MEDS: Fluticasone-Salmeterol 250-50mcg Diskus IH SCH ×2 (07:47→20:05)
[2017-02-21] MEDS: Potassium Chloride 20 mEq/15 ml LIQ UD PO SCH (09:45)
[2017-02-21] MEDS: Cefepime IV 1 gm in Dextrose 1 GM/50 ML BAG IVPB SCH ×2 (09:46→21:56)
[2017-02-21] MEDS: Vancomycin 1 gm/NS 200 ml 1 GM/200 ML BAG IVPB SCH ×2 (09:47→21:56)
[2017-02-21] MEDS: Valproic Acid 250 mg/5 ml UD Cup PO SCH ×2 (09:58→23:10)
--- NOTE | 2017-02-21 11:01 | CP.PCM.PN ---
Subjective - Date & Time of Evaluation Date of Evaluation: 02/21/17 Time of Evaluation: 10:59 - Subjective Subjective: Mr. Pickard was seen and examined at the bedside. He is awake, able to follow simple commands such as squeezing his hands, raising bilateral upper extremities , and moving his bilateral toes. He denies any headache, lightheadedness, dizziness, nausea, or vomiting. There was no untoward events overnight. Objective - Vital Signs/Intake and Output Vital Signs (last 24 hours): Temp Pulse Resp BP Pulse Ox 97.6 F 72 20 102/76 99 02/21/17 08:21 02/21/17 08:21 02/21/17 08:21 02/21/17 09:57 02/21/17 08:21 Intake and Output: 02/21/17 02/21/17 06:59 18:59 Intake Total 450 Output Total 600 Balance -150 - Medications Medications: Current Medications Acetaminophen (Tylenol 325mg Tab) 650 mg PO Q6 PRN PRN Reason: Fever >100.4 F Apixaban (Eliquis) 2.5 mg PO BID [facility] Last Admin: 02/21/17 09:57 Dose: 2.5 mg Aspirin (Aspirin Chewable) 81 mg PO DAILY [facility] Last Admin: 02/21/17 09:46 Dose: 81 mg Carvedilol (Coreg) 12.5 mg PO BID [facility] Last Admin: 02/21/17 09:57 Dose: 12.5 mg Chlorpromazine (Thorazine) 25 mg IM Q6 PRN PRN Reason: Hiccups Clopidogrel Bisulfate (Plavix) 75 mg PO DAILY [facility] Last Admin: 02/21/17 09:46 Dose: 75 mg Famotidine (Pepcid) 20 mg PO DAILY [facility] Last Admin: 02/21/17 09:46 Dose: 20 mg Furosemide (Lasix) 20 mg PO DAILY [facility] Last Admin: 02/21/17 09:46 Dose: 20 mg Cefepime HCl (Maxipime Iv 1 Gm Premix) 1 gm in 50 mls @ 100 mls/hr IVPB Q12H [facility] Last Admin: 02/21/17 09:46 Dose: 100 mls/hr Vancomycin/Sodium Chloride (Vancomycin 1 Gm/Ns 200 Ml) 1 gm in 200 mls @ 133.333 mls/hr IVPB Q12H [facility] Stop: 02/22/17 22:01 Last Admin: 02/21/17 09:47 Dose: 133.333 mls/hr Lisinopril (Zestril) 10 mg PO DAILY [facility] Last Admin: 02/21/17 09:46 Dose: 10 mg Midodrine (Proamatine) 10 mg PO Q8 [facility] Last Admin: 02/21/17 05:35 Dose: 10 mg Montelukast Sodium (Singulair) 10 mg PO HS [facility] Last Admin: 02/20/17 21:17 Dose: 10 mg Polyethylene Glycol (Miralax) 17 gm PO BID PRN PRN Reason: Constipation Last Admin: 02/19/17 12:18 Dose: 17 gm Potassium Chloride (Potassium Chloride Oral Soln) 20 meq PO DAILY [facility] Last Admin: 02/21/17 09:45 Dose: 20 meq Rosuvastatin Calcium (Crestor) 20 mg PO HS [facility] Last Admin: 02/20/17 21:35 Dose: 20 mg Fluticasone/Salmeterol (Advair Diskus 250/50) 1 puff IH RQ12 [facility] Last Admin: 02/21/17 07:47 Dose: Not Given Valproate Sodium (Depakene Oral Soln) 500 mg PO BID [facility] Last Admin: 02/21/17 09:58 Dose: 500 mg - Labs Labs: 02/16/17 11:19 02/18/17 06:57 PT 19.4 SECONDS (9.7-12.2) H 02/12/17 06:57 INR 1.7 02/12/17 06:57 APTT 32 SECONDS (21-34) 02/10/17 16:49 - Constitutional Appears: No Acute Distress - Head Exam Head Exam: ATRAUMATIC - Neurological Exam Neurological Exam: Alert, Awake Neuro motor strength exam: Left Upper Extremity: 5, Right Upper Extremity: 5, Left Lower Extremity: 3, Right Lower Extremity: 3 Additional comments: Neurological unchanged from previous examination. Assessment and Plan (1) Seizure Assessment & Plan: Case discussed with Dr. Chavis, continue all current medical, physical, and occupational therapies. There is no new recommendation from neurology. Status: Acute
--- NOTE | 2017-02-21 16:16 | CP.PCM.PN ---
Subjective - Date & Time of Evaluation Date of Evaluation: 02/21/17 Time of Evaluation: 10:00 - Subjective Subjective: improving awake responsive Objective - Vital Signs/Intake and Output Vital Signs (last 24 hours): Temp Pulse Resp BP Pulse Ox 97.9 F 71 20 107/66 98 02/21/17 15:00 02/21/17 15:00 02/21/17 15:00 02/21/17 15:00 02/21/17 15:00 Intake and Output: 02/21/17 02/21/17 06:59 18:59 Intake Total 450 450 Output Total 600 Balance -150 450 - Medications Medications: Current Medications Acetaminophen (Tylenol 325mg Tab) 650 mg PO Q6 PRN PRN Reason: Fever >100.4 F Apixaban (Eliquis) 2.5 mg PO BID [facility] Last Admin: 02/21/17 09:57 Dose: 2.5 mg Aspirin (Aspirin Chewable) 81 mg PO DAILY [facility] Last Admin: 02/21/17 09:46 Dose: 81 mg Carvedilol (Coreg) 12.5 mg PO BID [facility] Last Admin: 02/21/17 09:57 Dose: 12.5 mg Chlorpromazine (Thorazine) 25 mg IM Q6 PRN PRN Reason: Hiccups Clopidogrel Bisulfate (Plavix) 75 mg PO DAILY [facility] Last Admin: 02/21/17 09:46 Dose: 75 mg Famotidine (Pepcid) 20 mg PO DAILY [facility] Last Admin: 02/21/17 09:46 Dose: 20 mg Furosemide (Lasix) 20 mg PO DAILY [facility] Last Admin: 02/21/17 09:46 Dose: 20 mg Cefepime HCl (Maxipime Iv 1 Gm Premix) 1 gm in 50 mls @ 100 mls/hr IVPB Q12H [facility] Last Admin: 02/21/17 09:46 Dose: 100 mls/hr Vancomycin/Sodium Chloride (Vancomycin 1 Gm/Ns 200 Ml) 1 gm in 200 mls @ 133.333 mls/hr IVPB Q12H [facility] Stop: 02/22/17 22:01 Last Admin: 02/21/17 09:47 Dose: 133.333 mls/hr Lisinopril (Zestril) 10 mg PO DAILY [facility] Last Admin: 02/21/17 09:46 Dose: 10 mg Midodrine (Proamatine) 10 mg PO Q8 [facility] Last Admin: 02/21/17 05:35 Dose: 10 mg Montelukast Sodium (Singulair) 10 mg PO HS [facility] Last Admin: 02/20/17 21:17 Dose: 10 mg Polyethylene Glycol (Miralax) 17 gm PO BID PRN PRN Reason: Constipation Last Admin: 02/19/17 12:18 Dose: 17 gm Potassium Chloride (Potassium Chloride Oral Soln) 20 meq PO DAILY [facility] Last Admin: 02/21/17 09:45 Dose: 20 meq Rosuvastatin Calcium (Crestor) 20 mg PO HS [facility] Last Admin: 02/20/17 21:35 Dose: 20 mg Fluticasone/Salmeterol (Advair Diskus 250/50) 1 puff IH RQ12 [facility] Last Admin: 02/21/17 07:47 Dose: Not Given Valproate Sodium (Depakene Oral Soln) 500 mg PO BID [facility] Last Admin: 02/21/17 09:58 Dose: 500 mg - Labs Labs: 02/16/17 11:19 02/18/17 06:57 PT 19.4 SECONDS (9.7-12.2) H 02/12/17 06:57 INR 1.7 02/12/17 06:57 APTT 32 SECONDS (21-34) 02/10/17 16:49 - Constitutional Appears: Non-toxic, Chronically Ill - Head Exam Head Exam: NORMOCEPHALIC - Eye Exam Eye Exam: PERRL - ENT Exam ENT Exam: Mucous Membranes Dry - Neck Exam Neck Exam: absent: Lymphadenopathy - Respiratory Exam Respiratory Exam: Decreased Breath Sounds - Cardiovascular Exam Cardiovascular Exam: REGULAR RHYTHM - GI/Abdominal Exam GI & Abdominal Exam: Distended - Rectal Exam Rectal Exam: Deferred - Exam Exam: NORMAL INSPECTION - Extremities Exam Extremities Exam: absent: Pedal Edema - Back Exam Back Exam: absent: CVA tenderness (L), CVA tenderness (R) Assessment and Plan (1) Confusion Status: Acute (2) Fever Status: Acute
[2017-02-22] MEDS: Fluticasone-Salmeterol 250-50mcg Diskus IH SCH ×2 (07:21→20:20)
--- NOTE | 2017-02-22 07:24 | CP.PCM.PN ---
Subjective - Date & Time of Evaluation Date of Evaluation: 02/22/17 Time of Evaluation: 07:21 - Subjective Subjective: Mr. Pickard was seen and examined at the bedside. He is alert with episode of confusion. He does not know person, place, and time. He is able to follow simple commands such as finger accommodation, finger to nose test, and raising both bilateral upper extremities. He denies any pain or discomfort, headache, chest pain, nausea, or vomiting. There was no untoward events overnight. Objective - Vital Signs/Intake and Output Vital Signs (last 24 hours): Temp Pulse Resp BP Pulse Ox 98.2 F 73 20 101/61 97 02/22/17 00:00 02/22/17 00:00 02/22/17 00:00 02/22/17 00:00 02/22/17 00:00 Intake and Output: 02/22/17 02/22/17 06:59 18:59 Intake Total 500 Output Total 450 Balance 50 - Medications Medications: Current Medications Acetaminophen (Tylenol 325mg Tab) 650 mg PO Q6 PRN PRN Reason: Fever >100.4 F Apixaban (Eliquis) 2.5 mg PO BID [facility] Last Admin: 02/21/17 18:20 Dose: 2.5 mg Aspirin (Aspirin Chewable) 81 mg PO DAILY [facility] Last Admin: 02/21/17 09:46 Dose: 81 mg Carvedilol (Coreg) 12.5 mg PO BID [facility] Last Admin: 02/21/17 18:19 Dose: 12.5 mg Chlorpromazine (Thorazine) 25 mg IM Q6 PRN PRN Reason: Hiccups Last Admin: 02/22/17 02:08 Dose: 25 mg Clopidogrel Bisulfate (Plavix) 75 mg PO DAILY [facility] Last Admin: 02/21/17 09:46 Dose: 75 mg Famotidine (Pepcid) 20 mg PO DAILY [facility] Last Admin: 02/21/17 09:46 Dose: 20 mg Furosemide (Lasix) 20 mg PO DAILY [facility] Last Admin: 02/21/17 09:46 Dose: 20 mg Cefepime HCl (Maxipime Iv 1 Gm Premix) 1 gm in 50 mls @ 100 mls/hr IVPB Q12H [facility] Last Admin: 02/21/17 21:56 Dose: 100 mls/hr Vancomycin/Sodium Chloride (Vancomycin 1 Gm/Ns 200 Ml) 1 gm in 200 mls @ 133.333 mls/hr IVPB Q12H [facility] Stop: 02/22/17 22:01 Last Admin: 02/21/17 21:56 Dose: 133.333 mls/hr Lisinopril (Zestril) 10 mg PO DAILY [facility] Last Admin: 02/21/17 09:46 Dose: 10 mg Midodrine (Proamatine) 10 mg PO Q8 [facility] Last Admin: 02/22/17 05:02 Dose: 10 mg Montelukast Sodium (Singulair) 10 mg PO HS [facility] Last Admin: 02/21/17 21:55 Dose: 10 mg Polyethylene Glycol (Miralax) 17 gm PO BID PRN PRN Reason: Constipation Last Admin: 02/19/17 12:18 Dose: 17 gm Potassium Chloride (Potassium Chloride Oral Soln) 20 meq PO DAILY [facility] Last Admin: 02/21/17 09:45 Dose: 20 meq Rosuvastatin Calcium (Crestor) 20 mg PO HS [facility] Last Admin: 02/21/17 21:55 Dose: 20 mg Fluticasone/Salmeterol (Advair Diskus 250/50) 1 puff IH RQ12 [facility] Last Admin: 02/21/17 20:05 Dose: 1 puff Valproate Sodium (Depakene Oral Soln) 500 mg PO BID [facility] Last Admin: 02/21/17 23:10 Dose: 500 mg - Labs Labs: 02/16/17 11:19 02/18/17 06:57 PT 19.4 SECONDS (9.7-12.2) H 02/12/17 06:57 INR 1.7 02/12/17 06:57 APTT 32 SECONDS (21-34) 02/10/17 16:49 - Constitutional Appears: Well, No Acute Distress - Head Exam Head Exam: NORMAL INSPECTION, NORMOCEPHALIC - Neurological Exam Neurological Exam: Alert, Awake Neuro motor strength exam: Left Upper Extremity: 5, Right Upper Extremity: 5, Left Lower Extremity: 2/1, Right Lower Extremity: 3 Additional comments: Neurological unchanged from previous examination. Sensation remains intact. Assessment and Plan (1) Seizure Assessment & Plan: Case discussed with Dr. Chavis, continue all current medical, physical, and occupational therapies. will monitor depakote level. Status: Acute
--- NOTE | 2017-02-22 07:29 | PN ---
DATE: 02/20/2017 SUBJECTIVE: No change in condition, supportive care. Sofia Cardona MD
--- NOTE | 2017-02-22 10:10 | CP.PCM.PN ---
Subjective - Date & Time of Evaluation Date of Evaluation: 02/22/17 Time of Evaluation: 10:12 - Subjective Subjective: PGY2 Medicine Note for Dr. Cardona; all management as per Dr. Cardona Patient seen and examined at bedside with attending physician; denies any complaints and is more talkative today when compared to previous. Attending will reach out to as he has some relationship with her; will advise accordingly Objective - Vital Signs/Intake and Output Vital Signs (last 24 hours): Temp Pulse Resp BP Pulse Ox 98.6 F 66 20 98/67 L 97 02/22/17 08:21 02/22/17 08:21 02/22/17 08:21 02/22/17 08:21 02/22/17 08:21 Intake and Output: 02/22/17 02/22/17 06:59 18:59 Intake Total 500 Output Total 450 Balance 50 - Medications Medications: Current Medications Acetaminophen (Tylenol 325mg Tab) 650 mg PO Q6 PRN PRN Reason: Fever >100.4 F Apixaban (Eliquis) 2.5 mg PO BID [facility] Last Admin: 02/21/17 18:20 Dose: 2.5 mg Aspirin (Aspirin Chewable) 81 mg PO DAILY [facility] Last Admin: 02/21/17 09:46 Dose: 81 mg Carvedilol (Coreg) 12.5 mg PO BID [facility] Last Admin: 02/21/17 18:19 Dose: 12.5 mg Chlorpromazine (Thorazine) 25 mg IM Q6 PRN PRN Reason: Hiccups Last Admin: 02/22/17 02:08 Dose: 25 mg Clopidogrel Bisulfate (Plavix) 75 mg PO DAILY [facility] Last Admin: 02/21/17 09:46 Dose: 75 mg Famotidine (Pepcid) 20 mg PO DAILY [facility] Last Admin: 02/21/17 09:46 Dose: 20 mg Furosemide (Lasix) 20 mg PO DAILY [facility] Last Admin: 02/21/17 09:46 Dose: 20 mg Cefepime HCl (Maxipime Iv 1 Gm Premix) 1 gm in 50 mls @ 100 mls/hr IVPB Q12H [facility] Last Admin: 02/21/17 21:56 Dose: 100 mls/hr Vancomycin/Sodium Chloride (Vancomycin 1 Gm/Ns 200 Ml) 1 gm in 200 mls @ 133.333 mls/hr IVPB Q12H [facility] Stop: 02/22/17 22:01 Last Admin: 02/21/17 21:56 Dose: 133.333 mls/hr Lisinopril (Zestril) 10 mg PO DAILY [facility] Last Admin: 02/21/17 09:46 Dose: 10 mg Midodrine (Proamatine) 10 mg PO Q8 [facility] Last Admin: 02/22/17 05:02 Dose: 10 mg Montelukast Sodium (Singulair) 10 mg PO HS [facility] Last Admin: 02/21/17 21:55 Dose: 10 mg Polyethylene Glycol (Miralax) 17 gm PO BID PRN PRN Reason: Constipation Last Admin: 02/19/17 12:18 Dose: 17 gm Potassium Chloride (Potassium Chloride Oral Soln) 20 meq PO DAILY [facility] Last Admin: 02/21/17 09:45 Dose: 20 meq Rosuvastatin Calcium (Crestor) 20 mg PO [facility] Last Admin: 02/21/17 21:55 Dose: 20 mg Fluticasone/Salmeterol (Advair Diskus 250/50) 1 puff IH RQ12 [facility] Last Admin: 02/22/17 07:21 Dose: 1 puff Valproate Sodium (Depakene Oral Soln) 500 mg PO BID [facility] Last Admin: 02/21/17 23:10 Dose: 500 mg - Labs Labs: 02/16/17 11:19 02/18/17 06:57 PT 19.4 SECONDS (9.7-12.2) H 02/12/17 06:57 INR 1.7 02/12/17 06:57 APTT 32 SECONDS (21-34) 02/10/17 16:49 - Constitutional Appears: Non-toxic - Head Exam Head Exam: ATRAUMATIC - ENT Exam ENT Exam: Mucous Membranes Moist - Neck Exam Neck Exam: Full ROM - Respiratory Exam Respiratory Exam: Clear to Ausculation Bilateral - Cardiovascular Exam Cardiovascular Exam: REGULAR RHYTHM - GI/Abdominal Exam GI & Abdominal Exam: Soft - Extremities Exam Extremities Exam: Full ROM. 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 Chavis Started Keppra 500mg PO daily RPR, HIV, B12, folate negative 02/10 blood culture negative 02/10 urine culture negative Ammonia normal 02/12 CT head- no acute changes from 12/31, chronic ischemic changes Dr. Chavis consulted, help appreciated- will f/u recommendations Speech therapy recommends thin liquid diet, aspirations precautions. Oral thrush, resolved Most likely from chronic steroid use with COPD and patient not washing mouth out afterwords Dr. Garay, consulted- help appreciated Diflucan 100mg IV daily started 02/11, last dose on 02/17 Liquid diet as per speech and swallow Fever, resolved No fever since admission Cefepime 1g IV q12H started 02/11. Vancomycin 1000mg IV q12H. started 02/11. Tylenol PRN. blood culture negative urine culture negative No source of infection at this point; likely viral illness that resolved itself and abx are not needed upon discharge. CHF; chronic Continue Coreg 12.5mg PO BID, Lasix 20mg PO daily, midodrine 10mg PO q8H and Lisinopril 10mg PO daily. Hx of CAD Continue ASA 81mg PO daily, Crestor 20mg PO HS, Eliquis 2.5mg PO BID, Plavix 75mg PO daily. COPD;chronic and stable Continue Advair, Singulair. Prophylactic measure Pepcid, Eliquis/Plavix. SCD contraindicated for fall risk. PT/OT. Dispo: patient is likely stable for d/c back to group home - would like to have patient go to [facility] as she does not want permanent placement into group home; however insurance is denying the patients ability to go to [facility] as he has used all days available to him and LTAC/assisted is the best option for him -will have family meeting; Palliative care consult will be placed for POLST/ goals of care Management as per Dr. Cardona
[2017-02-22] MEDS ORDERED: Thiamine 100 mg/ml Inj IV SCH (10:15)
[2017-02-22] MEDS: Potassium Chloride 20 mEq/15 ml LIQ UD PO SCH (11:16)
[2017-02-22] MEDS: Valproic Acid 250 mg/5 ml UD Cup PO SCH ×2 (11:19→18:22)
[2017-02-22] MEDS: Cefepime IV 1 gm in Dextrose 1 GM/50 ML BAG IVPB SCH ×2 (11:21→21:27)
[2017-02-22] MEDS: Vancomycin 1 gm/NS 200 ml 1 GM/200 ML BAG IVPB SCH ×2 (11:24→22:10)
--- NOTE | 2017-02-22 14:07 | CP.PCM.CON ---
History of Present Illness - History of Present Illness History of Present Illness: Palliative consult requested for goals of care and Code status discussion Patient is a 71 o male admitted from [place] with increased confusion, high Temp and low BP. patient is confused at baseline, but this confusion was markedly increased. Upon admission, CT head was negative acute findings. The EEG was abnormal showing focal abnormality. WBC 6.8. Hb 11.2, afebrile. PMH: asthma, A fib, CHF, COPD, EF 20 % found in 2016, base line confusion Soc. Hx: , assisted resident Fam. Hx: unobtainable due to AMS Review of Systems - Review of Systems All systems: reviewed and no additional remarkable complaints except Review of Systems: ROS obtained from nursing. Per nursing, no over night events Past Patient History - Infectious Disease Hx of Infectious Diseases: None - Past Medical History & Family History Past Medical History?: Yes - Past Social History Smoking Status: Never Smoked - CARDIAC Hx Congestive Heart Failure: Yes Hx Hypercholesterolemia: Yes Hx Hypertension: Yes - PULMONARY Hx Chronic Obstructive Pulmonary Disease (COPD): Yes - NEUROLOGICAL Hx Neurological Disorder: Yes Other/Comment: hx of COMA - HEENT Hx HEENT Problems: No - RENAL Hx Chronic Kidney Disease: No - ENDOCRINE/METABOLIC Hx Endocrine Disorders: No - HEMATOLOGICAL/ONCOLOGICAL Hx Blood Disorders: Yes Hx Hepatitis C: Yes - INTEGUMENTARY Hx Dermatological Problems: No - MUSCULOSKELETAL/RHEUMATOLOGICAL Hx Arthritis: Yes - GASTROINTESTINAL Hx Gastrointestinal Disorders: Yes Hx Gastroesophageal Reflux: Yes - GENITOURINARY/GYNECOLOGICAL Hx Genitourinary Disorders: No - PSYCHIATRIC Hx Substance Use: No - SURGICAL HISTORY Hx Surgeries: Yes Hx Cardiac Catheterization: Yes Other/Comment: defibrillator placement 2005,[id number].AICD - ANESTHESIA Hx Anesthesia: Yes Hx Anesthesia Reactions: No Hx Malignant Hyperthermia: No Meds Home Medications: Home Medication List Medication Instructions Recorded Confirmed Type Divalproex [Depakote ER] [address] 02/18/17 Rx Polyethylene Glycol 3350 [Miralax] 17 gm PO BID PRN packet 02/18/17 Rx Allergies/Adverse Reactions: Allergies Allergy/AdvReac Type Severity Reaction Status Date / Time No Known Allergies Allergy Verified 12/23/16 17:30 - Medications Medications: Current Medications Acetaminophen (Tylenol 325mg Tab) 650 mg PO Q6 PRN PRN Reason: Fever >100.4 F Apixaban (Eliquis) 2.5 mg PO BID [facility] Last Admin: 02/22/17 11:19 Dose: 2.5 mg Aspirin (Aspirin Chewable) 81 mg PO DAILY [facility] Last Admin: 02/22/17 11:14 Dose: 81 mg Carvedilol (Coreg) 12.5 mg PO BID [facility] Last Admin: 02/22/17 11:17 Dose: Not Given Chlorpromazine (Thorazine) 25 mg IM Q6 PRN PRN Reason: Hiccups Last Admin: 02/22/17 02:08 Dose: 25 mg Clopidogrel Bisulfate (Plavix) 75 mg PO DAILY [facility] Last Admin: 02/22/17 11:16 Dose: 75 mg Famotidine (Pepcid) 20 mg PO DAILY [facility] Last Admin: 02/22/17 11:19 Dose: 20 mg Furosemide (Lasix) 20 mg PO DAILY [facility] Last Admin: 02/22/17 11:15 Dose: Not Given Cefepime HCl (Maxipime Iv 1 Gm Premix) 1 gm in 50 mls @ 100 mls/hr IVPB Q12H [facility] Last Admin: 02/22/17 11:21 Dose: 100 mls/hr Vancomycin/Sodium Chloride (Vancomycin 1 Gm/Ns 200 Ml) 1 gm in 200 mls @ 133.333 mls/hr IVPB Q12H [facility] Stop: 02/22/17 22:01 Last Admin: 02/22/17 11:24 Dose: 133.333 mls/hr Folic Acid 1 mg/ Sodium (Chloride) 100.2 mls @ 60 mls/hr IV DAILY [facility] Folic Acid 1 mg/ Sodium (Chloride) 100.2 mls @ 60 mls/hr IV DAILY [facility] Lisinopril (Zestril) 10 mg PO DAILY [facility] Last Admin: 02/22/17 11:45 Dose: Not Given Midodrine (Proamatine) 10 mg PO Q8 [facility] Last Admin: 02/22/17 11:23 Dose: 10 mg Montelukast Sodium (Singulair) 10 mg PO HS [facility] Last Admin: 02/21/17 21:55 Dose: 10 mg Multivitamins (Hexavitamin) 1 tab PO DAILY [facility] Polyethylene Glycol (Miralax) 17 gm PO BID PRN PRN Reason: Constipation Last Admin: 02/19/17 12:18 Dose: 17 gm Potassium Chloride (Potassium Chloride Oral Soln) 20 meq PO DAILY [facility] Last Admin: 02/22/17 11:16 Dose: 20 meq Rosuvastatin Calcium (Crestor) 20 mg PO HS [facility] Last Admin: 02/21/17 21:55 Dose: 20 mg Fluticasone/Salmeterol (Advair Diskus 250/50) 1 puff IH RQ12 [facility] Last Admin: 02/22/17 07:21 Dose: 1 puff Thiamine HCl (Vitamin B1 Inj) 100 mg IV DAILY [facility] Valproate Sodium (Depakene Oral Soln) 500 mg PO BID [facility] Last Admin: 02/22/17 11:19 Dose: 500 mg Physical Exam - Constitutional Appears: Chronically Ill - Head Exam Head Exam: ATRAUMATIC, NORMAL INSPECTION, NORMOCEPHALIC - Eye Exam Eye Exam: EOMI, Normal appearance, PERRL Pupil Exam: NORMAL ACCOMODATION, PERRL - ENT Exam ENT Exam: Mucous Membranes Moist, Normal Exam - Neck Exam Neck exam: Positive for: Normal Inspection - Respiratory Exam Respiratory Exam: Decreased Breath Sounds, NORMAL BREATHING PATTERN - Cardiovascular Exam Cardiovascular Exam: REGULAR RHYTHM - GI/Abdominal Exam GI & Abdominal Exam: Normal Bowel Sounds, Soft - Rectal Exam Rectal Exam: Deferred - Exam Exam: NORMAL INSPECTION - Extremities Exam Extremities exam: Positive for: normal inspection - Back Exam Back exam: NORMAL INSPECTION - Neurological Exam Neurological exam: Alert, Altered - Psychiatric Exam Psychiatric exam: Flat Affect - Skin Skin Exam: Normal Color, Warm Results - Vital Signs Recent Vital Signs: Last Vital Signs Temp 98.6 F 02/22/17 08:21 Pulse 66 02/22/17 08:21 Resp 20 02/22/17 08:21 BP 98/67 L 02/22/17 11:15 Pulse Ox 97 02/22/17 08:21 - Labs Result Diagrams: 02/16/17 11:19 02/18/17 06:57 Labs: Laboratory Results - last 24 hr 02/22/17 13:27 Valproic Acid 29.8 L Assessment & Plan - Assessment and Plan (Free Text) Assessment: Palliative consult Code status unknown, there is no Advance directive/ Advance directive on chart, PPS 10% I reviewed medical records, all diagnostic studies, examined patient in the bed Patient is alert, only able to fallow simple commend such as " squeeze my hand' or " lift up your arm". Patient speaks very limited Hebrew. Patient dos not seem to be in acute distress. Physical exam is unremarkable. VS are WNL. Urine and blood C&S were negative. Clinically patient has improved. Over the phone I spoke to patient's Tiffany and asked her to meet with me for the family meeting. Mrs. Allen was going to ask for day off tomorrow and call me back with time convenient for her . Impression * Chronically ill man with acute event of increased confusion and fever * Clinically, patient has improved since the admission * Patient is confused at base line and requires richard assistance with ADLs * patient is not able to advocate for himself * Patient's wishes for the end of life care are not known * Patient's advocates for him Suggestion * Promote safety * Assist with feedings Family meeting pending for tomorrow with patient's , for more detailed goals of care discussion. She is still to call back with proposed time of a meeting. Thank you for consulting palliative Care
[2017-02-22] MEDS: Thiamine 100 mg/ml Inj IV SCH (14:51)
--- NOTE | 2017-02-23 07:06 | CP.PCM.PN ---
Subjective - Date & Time of Evaluation Date of Evaluation: 02/23/17 Time of Evaluation: 07:15 - Subjective Subjective: Medicine note- Dr. Cardona's service Patient was seen and examined at bedside. Patient is still confused, but talkative. Patient appears comfortable and in no acute distress. No events overnight per nursing. Objective - Vital Signs/Intake and Output Vital Signs (last 24 hours): Temp Pulse Resp BP Pulse Ox 97.4 F L 73 20 102/58 L 99 02/23/17 00:00 02/23/17 00:00 02/23/17 00:00 02/23/17 00:00 02/23/17 00:00 Intake and Output: 02/23/17 02/23/17 06:59 18:59 Intake Total 370 Output Total 200 Balance 170 - Medications Medications: Current Medications Acetaminophen (Tylenol 325mg Tab) 650 mg PO Q6 PRN PRN Reason: Fever >100.4 F Apixaban (Eliquis) 2.5 mg PO BID [facility] Last Admin: 02/22/17 18:22 Dose: 2.5 mg Aspirin (Aspirin Chewable) 81 mg PO DAILY [facility] Last Admin: 02/22/17 11:14 Dose: 81 mg Carvedilol (Coreg) 12.5 mg PO BID [facility] Last Admin: 02/22/17 18:18 Dose: Not Given Chlorpromazine (Thorazine) 25 mg IM Q6 PRN PRN Reason: Hiccups Last Admin: 02/23/17 02:53 Dose: 25 mg Clopidogrel Bisulfate (Plavix) 75 mg PO DAILY [facility] Last Admin: 02/22/17 11:16 Dose: 75 mg Famotidine (Pepcid) 20 mg PO DAILY [facility] Last Admin: 02/22/17 11:19 Dose: 20 mg Furosemide (Lasix) 20 mg PO DAILY [facility] Last Admin: 02/22/17 11:15 Dose: Not Given Cefepime HCl (Maxipime Iv 1 Gm Premix) 1 gm in 50 mls @ 100 mls/hr IVPB Q12H [facility] Last Admin: 02/22/17 21:27 Dose: 100 mls/hr Folic Acid 1 mg/ Sodium (Chloride) 100.2 mls @ 60 mls/hr IV DAILY [facility] Last Admin: 02/22/17 14:41 Dose: 60 mls/hr Lisinopril (Zestril) 10 mg PO DAILY [facility] Last Admin: 02/22/17 11:45 Dose: Not Given Midodrine (Proamatine) 10 mg PO Q8 [facility] Last Admin: 02/23/17 06:07 Dose: 10 mg Montelukast Sodium (Singulair) 10 mg PO HS [facility] Last Admin: 02/22/17 21:27 Dose: 10 mg Multivitamins (Hexavitamin) 1 tab PO DAILY [facility] Polyethylene Glycol (Miralax) 17 gm PO BID PRN PRN Reason: Constipation Last Admin: 02/19/17 12:18 Dose: 17 gm Potassium Chloride (Potassium Chloride Oral Soln) 20 meq PO DAILY [facility] Last Admin: 02/22/17 11:16 Dose: 20 meq Rosuvastatin Calcium (Crestor) 20 mg PO HS [facility] Last Admin: 02/22/17 21:27 Dose: 20 mg Fluticasone/Salmeterol (Advair Diskus 250/50) 1 puff IH RQ12 [facility] Last Admin: 02/22/17 20:20 Dose: Not Given Thiamine HCl (Vitamin B1 Inj) 100 mg IV DAILY [facility] Last Admin: 02/22/17 14:51 Dose: 100 mg Valproate Sodium (Depakene Oral Soln) 500 mg PO BID [facility] Last Admin: 02/22/17 18:22 Dose: 500 mg - Labs Labs: 02/16/17 11:19 02/18/17 06:57 PT 19.4 SECONDS (9.7-12.2) H 02/12/17 06:57 INR 1.7 02/12/17 06:57 APTT 32 SECONDS (21-34) 02/10/17 16:49 - Constitutional Appears: Non-toxic, No Acute Distress - Head Exam Head Exam: ATRAUMATIC, NORMAL INSPECTION, NORMOCEPHALIC - Eye Exam Pupil Exam: NORMAL ACCOMODATION, PERRL - ENT Exam ENT Exam: Mucous Membranes Moist - Respiratory Exam Respiratory Exam: Clear to Ausculation Bilateral, NORMAL BREATHING PATTERN. absent: Prolonged Expiratory Phase, Rales, Rhonchi, Wheezes - Cardiovascular Exam Cardiovascular Exam: REGULAR RHYTHM, +S1, +S2 - GI/Abdominal Exam GI & Abdominal Exam: Soft, Normal Bowel Sounds. absent: Tenderness, Diminished Bowel Sounds, Hernia, Hypoactive Bowel Sounds - Neurological Exam Neurological Exam: Alert, Awake. 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 Chavis Continue Keppra 500mg PO daily RPR, HIV, B12, folate negative 02/10 blood culture negative 02/10 urine culture negative Ammonia normal 02/12 CT head- no acute changes from 12/31, chronic ischemic changes Dr. Chavis consulted, help appreciated- will f/u recommendations Speech therapy recommends thin liquid diet, aspirations precautions. Oral thrush, resolved Most likely from chronic steroid use with COPD and patient not washing mouth out afterwords Dr. Garay, consulted- help appreciated Diflucan 100mg IV daily started 02/11, last dose on 02/17 Liquid diet as per speech and swallow Fever, resolved No fever since admission Cefepime 1g IV q12H started 02/11. Vancomycin 1000mg IV q12H. started 02/11. Tylenol PRN. blood culture negative urine culture negative No source of infection at this point; likely viral illness that resolved itself and abx are not needed upon discharge. CHF; chronic Continue Coreg 12.5mg PO BID, Lasix 20mg PO daily, midodrine 10mg PO q8H and Lisinopril 10mg PO daily. Hx of CAD Continue ASA 81mg PO daily, Crestor 20mg PO HS, Eliquis 2.5mg PO BID, Plavix 75mg PO daily. COPD;chronic and stable Continue Advair, Singulair. Prophylactic measure Pepcid, Eliquis/Plavix. SCD contraindicated for fall risk. PT/OT. Dispo: patient is likely stable for d/c back to [facility]way - would like to have patient go to [facility] as she does not want permanent placement into half-way; however insurance is denying the patients ability to go to [facility] as he has used all days available to him and LTAC/long term is the best option for him -will have family meeting; Palliative care consult will be placed for POLST/ goals of care Management as per Dr. Cardona
[2017-02-23] MEDS: Fluticasone-Salmeterol 250-50mcg Diskus IH SCH ×2 (07:39→19:11)
--- NOTE | 2017-02-23 09:33 | CP.PCM.PCO ---
Physician Communication Note - Physician Communication Note Physician Communication Note: Patient's did not call back with time for fam. meeting.
--- NOTE | 2017-02-23 11:15 | VASCLAB ---
STUDY DESCRIPTION: HISTORY: Leg pain PRIORS: None. TECHNIQUE: Pulse volume recording waveforms and segmental pressures of bilateral lower extremities at multiple levels were obtained. Ankle Brachial Indices (ABIs) were calculated. Report prepared by DAVIN Cortez, RVT RIGHT LOWER EXTREMITY: * Brachial artery: Pressure - 97 mmHg. * High thigh: Pressure - mmHg: Ratio - : PVR waveform - Pulsatile * Low thigh: Pressure - mmHg: Ratio - PVR waveform: Pulsatile * Calf: Pressure - mmHg: Ratio - PVR waveform: Pulsatile * Posterior tibial Artery: Pressure - 146 mmHg: Ratio - 151 PVR waveform: Pulsatile * Dorsalis pedis Artery: Pressure - 137 mmHg: Ratio - 1.41 PVR waveform: Pulsatile * Great toe: Pressure - mmHg: Ratio - PVR waveform: Ankle brachial index (BENEDICTO): 1.51 LEFT LOWER EXTREMITY: * Brachial artery: Pressure - 87 mmHg. * High thigh: Pressure - mmHg: Ratio - : PVR waveform - Pulsatile * Low thigh: Pressure - mmHg: Ratio - PVR waveform: Pulsatile * Calf: Pressure - mmHg: Ratio - PVR waveform: Pulsatile * Posterior tibial Artery: Pressure - 220 mmHg: Ratio - NC PVR waveform: Pulsatile * Dorsalis pedis Artery: Pressure - 157 mmHg: Ratio - 1.62 PVR waveform: Pulsatile * Great toe: Pressure - mmHg: Ratio - PVR waveform: Ankle brachial index (BENEDICTO): NC OTHER FINDINGS: Right: Left: IMPRESSION: Right: The ankle pressure index of the right lower extremity is non-diagnostic due to possible arterial wall calcifications. Waveforms are pulsatile. Left: The ankle pressure index of the left lower extremity is non-diagnostic due to possible arterial wall calcifications. Waveforms are pulsatile.
[2017-02-23] MEDS: Valproic Acid 250 mg/5 ml UD Cup PO SCH ×2 (11:23→18:07)
[2017-02-23] MEDS: Thiamine 100 mg/ml Inj IV SCH (11:25)
[2017-02-23] MEDS: Potassium Chloride 20 mEq/15 ml LIQ UD PO SCH (11:27)
[2017-02-23] MEDS: Multiple Vitamins Tab PO SCH (11:33)
[2017-02-23] MEDS: Cefepime IV 1 gm in Dextrose 1 GM/50 ML BAG IVPB SCH ×2 (11:35→22:44)
--- NOTE | 2017-02-23 13:26 | CP.PCM.PN ---
Subjective - Date & Time of Evaluation Date of Evaluation: 02/23/17 Time of Evaluation: 13:24 - Subjective Subjective: Patient offers no complaints Objective - Vital Signs/Intake and Output Vital Signs (last 24 hours): Temp Pulse Resp BP Pulse Ox 97.7 F 69 20 94/59 L 97 02/23/17 07:55 02/23/17 07:55 02/23/17 07:55 02/23/17 07:55 02/23/17 07:55 Intake and Output: 02/23/17 02/23/17 06:59 18:59 Intake Total 370 600 Output Total 200 500 Balance 170 100 - Medications Medications: Current Medications Acetaminophen (Tylenol 325mg Tab) 650 mg PO Q6 PRN PRN Reason: Fever >100.4 F Apixaban (Eliquis) 2.5 mg PO BID [facility] Last Admin: 02/23/17 11:26 Dose: 2.5 mg Aspirin (Aspirin Chewable) 81 mg PO DAILY [facility] Last Admin: 02/23/17 11:23 Dose: 81 mg Carvedilol (Coreg) 12.5 mg PO BID [facility] Last Admin: 02/23/17 11:23 Dose: Not Given Chlorpromazine (Thorazine) 25 mg IM Q6 PRN PRN Reason: Hiccups Last Admin: 02/23/17 02:53 Dose: 25 mg Clopidogrel Bisulfate (Plavix) 75 mg PO DAILY [facility] Last Admin: 02/23/17 11:25 Dose: 75 mg Famotidine (Pepcid) 20 mg PO DAILY [facility] Last Admin: 02/23/17 11:24 Dose: 20 mg Furosemide (Lasix) 20 mg PO DAILY [facility] Last Admin: 02/23/17 11:24 Dose: Not Given Cefepime HCl (Maxipime Iv 1 Gm Premix) 1 gm in 50 mls @ 100 mls/hr IVPB Q12H [facility] Last Admin: 02/23/17 11:35 Dose: 100 mls/hr Folic Acid 1 mg/ Sodium (Chloride) 100.2 mls @ 60 mls/hr IV DAILY [facility] Last Admin: 02/23/17 12:24 Dose: 60 mls/hr Lisinopril (Zestril) 10 mg PO DAILY [facility] Last Admin: 02/23/17 11:25 Dose: Not Given Midodrine (Proamatine) 10 mg PO Q8 [facility] Last Admin: 02/23/17 06:07 Dose: 10 mg Montelukast Sodium (Singulair) 10 mg PO HS [facility] Last Admin: 02/22/17 21:27 Dose: 10 mg Multivitamins (Hexavitamin) 1 tab PO DAILY [facility] Last Admin: 02/23/17 11:33 Dose: 1 tab Polyethylene Glycol (Miralax) 17 gm PO BID PRN PRN Reason: Constipation Last Admin: 02/19/17 12:18 Dose: 17 gm Potassium Chloride (Potassium Chloride Oral Soln) 20 meq PO DAILY [facility] Last Admin: 02/23/17 11:27 Dose: 20 meq Rosuvastatin Calcium (Crestor) 20 mg PO HS [facility] Last Admin: 02/22/17 21:27 Dose: 20 mg Fluticasone/Salmeterol (Advair Diskus 250/50) 1 puff IH RQ12 [facility] Last Admin: 02/23/17 07:39 Dose: Not Given Thiamine HCl (Vitamin B1 Inj) 100 mg IV DAILY [facility] Last Admin: 02/23/17 11:25 Dose: 100 mg Valproate Sodium (Depakene Oral Soln) 500 mg PO BID [facility] Last Admin: 02/23/17 11:23 Dose: 500 mg - Labs Labs: 02/16/17 11:19 02/18/17 06:57 PT 19.4 SECONDS (9.7-12.2) H 02/12/17 06:57 INR 1.7 02/12/17 06:57 APTT 32 SECONDS (21-34) 02/10/17 16:49 - Constitutional Appears: No Acute Distress, Chronically Ill - Head Exam Head Exam: ATRAUMATIC, NORMAL INSPECTION, NORMOCEPHALIC - Eye Exam Eye Exam: Normal appearance, PERRL Pupil Exam: NORMAL ACCOMODATION - ENT Exam ENT Exam: Mucous Membranes Moist, Normal Exam - Neck Exam Neck Exam: Normal Inspection - Respiratory Exam Respiratory Exam: Decreased Breath Sounds, NORMAL BREATHING PATTERN - Cardiovascular Exam Cardiovascular Exam: REGULAR RHYTHM - GI/Abdominal Exam GI & Abdominal Exam: Diminished Bowel Sounds - Rectal Exam Rectal Exam: Deferred - Exam Exam: NORMAL INSPECTION - Extremities Exam Extremities Exam: Normal Inspection - Back Exam Back Exam: NORMAL INSPECTION - Neurological Exam Neurological Exam: Alert, Altered Neuro motor strength exam: Left Upper Extremity: 2/1, Right Upper Extremity: 2/1 , Left Lower Extremity: 2/1, Right Lower Extremity: 04/15 - Psychiatric Exam Psychiatric exam: Flat Affect - Skin Skin Exam: Normal Color Assessment and Plan - Assessment and Plan (Free Text) Assessment: Patient seen and examined in the bed, looking more alert today. Patient able to fallow simple commends and attempts to talk in Lithuanian. BP 94/59 , afebrile. As per record, there is about 500 cc of PO liquid intakes per day. Urine output good. Blood work without significant changes. This morning I met with Doctor Brendan. He suggested that a intermodal dispatcher placement at [place] would be best option for this patient as he needs extensive assistance with care. His works long hours. Spoke over the phone with patient's Tiffany. 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 I reviewed with her patient's clinical presentation and Doctor Cardona's suggestion for skilled nursing placement. The stated feeling it would be the best choice or her as she has no enough support at home to assist him with care. Tiffany claims working most of the day to be able to pay her bills and is concerned she would not be able to assist her . Impresion * Chronically ill man with need for extensive assistance at home * does not have enough support at home and understands tat her would be best taken care of at [place] as a skilled nursing resident Suggestion * Would discharge to [place] for intermodal dispatcher placement This was shared with Doctor Shawn Lockhart
[2017-02-24] MEDS: Fluticasone-Salmeterol 250-50mcg Diskus IH SCH ×2 (07:38→19:50)
--- NOTE | 2017-02-24 09:04 | CP.PCM.PN ---
Subjective - Date & Time of Evaluation Date of Evaluation: 02/24/17 Time of Evaluation: 09:04 - Subjective Subjective: Medicine Progress Note Patient seen and examined. No acute events overnight. Patient remains stable with no change in clinical condition. Objective - Vital Signs/Intake and Output Vital Signs (last 24 hours): Temp Pulse Resp BP Pulse Ox 98.1 F 71 20 119/70 96 02/24/17 08:00 02/24/17 08:00 02/24/17 08:00 02/24/17 08:00 02/24/17 08:00 Intake and Output: 02/24/17 02/24/17 06:59 18:59 Intake Total 390 Output Total 400 Balance -10 - Medications Medications: Current Medications Acetaminophen (Tylenol 325mg Tab) 650 mg PO Q6 PRN PRN Reason: Fever >100.4 F Apixaban (Eliquis) 2.5 mg PO BID [facility] Last Admin: 02/23/17 18:07 Dose: 2.5 mg Aspirin (Aspirin Chewable) 81 mg PO DAILY [facility] Last Admin: 02/23/17 11:23 Dose: 81 mg Carvedilol (Coreg) 12.5 mg PO BID [facility] Last Admin: 02/23/17 18:08 Dose: Not Given Chlorpromazine (Thorazine) 25 mg IM Q6 PRN PRN Reason: Hiccups Last Admin: 02/24/17 05:30 Dose: 25 mg Clopidogrel Bisulfate (Plavix) 75 mg PO DAILY [facility] Last Admin: 02/23/17 11:25 Dose: 75 mg Famotidine (Pepcid) 20 mg PO DAILY [facility] Last Admin: 02/23/17 11:24 Dose: 20 mg Furosemide (Lasix) 20 mg PO DAILY [facility] Last Admin: 02/23/17 11:24 Dose: Not Given Cefepime HCl (Maxipime Iv 1 Gm Premix) 1 gm in 50 mls @ 100 mls/hr IVPB Q12H [facility] Last Admin: 02/23/17 22:44 Dose: 100 mls/hr Folic Acid 1 mg/ Sodium (Chloride) 100.2 mls @ 60 mls/hr IV DAILY [facility] Last Admin: 02/23/17 12:24 Dose: 60 mls/hr Lisinopril (Zestril) 10 mg PO DAILY [facility] Last Admin: 02/23/17 11:25 Dose: Not Given Midodrine (Proamatine) 10 mg PO Q8 [facility] Last Admin: 02/24/17 05:32 Dose: 10 mg Montelukast Sodium (Singulair) 10 mg PO HS [facility] Last Admin: 02/23/17 22:44 Dose: 10 mg Multivitamins (Hexavitamin) 1 tab PO DAILY [facility] Last Admin: 02/23/17 11:33 Dose: 1 tab Polyethylene Glycol (Miralax) 17 gm PO BID PRN PRN Reason: Constipation Last Admin: 02/19/17 12:18 Dose: 17 gm Potassium Chloride (Potassium Chloride Oral Soln) 20 meq PO DAILY [facility] Last Admin: 02/23/17 11:27 Dose: 20 meq Rosuvastatin Calcium (Crestor) 20 mg PO HS [facility] Last Admin: 02/23/17 22:45 Dose: 20 mg Fluticasone/Salmeterol (Advair Diskus 250/50) 1 puff IH RQ12 [facility] Last Admin: 02/23/17 19:11 Dose: Not Given Thiamine HCl (Vitamin B1 Inj) 100 mg IV DAILY [facility] Last Admin: 02/23/17 11:25 Dose: 100 mg Valproate Sodium (Depakene Oral Soln) 500 mg PO BID [facility] Last Admin: 02/23/17 18:07 Dose: 500 mg - Labs Labs: 02/16/17 11:19 02/18/17 06:57 PT 19.4 SECONDS (9.7-12.2) H 02/12/17 06:57 INR 1.7 02/12/17 06:57 APTT 32 SECONDS (21-34) 02/10/17 16:49 - Constitutional Appears: Non-toxic, No Acute Distress - Head Exam Head Exam: ATRAUMATIC, NORMAL INSPECTION, NORMOCEPHALIC - Eye Exam Pupil Exam: NORMAL ACCOMODATION, PERRL - ENT Exam ENT Exam: Mucous Membranes Moist - Respiratory Exam Respiratory Exam: Clear to Ausculation Bilateral, NORMAL BREATHING PATTERN. absent: Prolonged Expiratory Phase, Rales, Rhonchi, Wheezes - Cardiovascular Exam Cardiovascular Exam: REGULAR RHYTHM, +S1, +S2 - GI/Abdominal Exam GI & Abdominal Exam: Soft, Normal Bowel Sounds. absent: Tenderness, Diminished Bowel Sounds, Hernia, Hypoactive Bowel Sounds - Neurological Exam Neurological Exam: Alert, Awake. 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 Improvement in mental status 02/16 EEG report abnormal as per Dr. Chavis Continue Keppra 500mg PO daily RPR, HIV, B12, folate negative 02/10 blood culture negative 02/10 urine culture negative Ammonia normal 02/12 CT head- no acute changes from 12/31, chronic ischemic changes Dr. Chavis consulted, help appreciated- will f/u recommendations Speech therapy recommends thin liquid diet, aspirations precautions. Oral thrush, resolved Most likely from chronic steroid use with COPD and patient not washing mouth out afterwords Dr. Garay, consulted- help appreciated Diflucan 100mg IV daily started 02/11, last dose on 02/17 Liquid diet as per speech and swallow Fever, resolved No fever since admission Cefepime 1g IV q12H started 02/11. Stopped Vancomycin 1000mg IV q12H. started 02/11. Tylenol PRN. blood culture negative urine culture negative No source of infection at this point; likely viral illness that resolved itself and abx are not needed upon discharge. CHF; chronic Continue Coreg 12.5mg PO BID, Lasix 20mg PO daily, midodrine 10mg PO q8H and Lisinopril 10mg PO daily. Hx of CAD Continue ASA 81mg PO daily, Crestor 20mg PO HS, Eliquis 2.5mg PO BID, Plavix 75mg PO daily. COPD;chronic and stable Continue Advair, Singulair. Prophylactic measure Pepcid, Eliquis/Plavix. SCD contraindicated for fall risk. PT/OT. Dispo: patient is likely stable for d/c back to shelter - has agreed that LTAC/correction is the best option for him Management as per Dr. Cardona
[2017-02-24] MEDS: Cefepime IV 1 gm in Dextrose 1 GM/50 ML BAG IVPB SCH (09:56)
[2017-02-24] MEDS: Multiple Vitamins Tab PO SCH (09:59)
[2017-02-24] MEDS: Potassium Chloride 20 mEq/15 ml LIQ UD PO SCH (09:59)
[2017-02-24] MEDS: POLYETHYLENE GLYCOL 3350 17 GM/Dose PACKET PO PRN (10:00)
[2017-02-24] MEDS: Valproic Acid 250 mg/5 ml UD Cup PO SCH ×2 (10:02→18:15)
[2017-02-24] MEDS: Thiamine 100 mg/ml Inj IV SCH (10:04)
--- NOTE | 2017-02-24 10:54 | CP.PCM.PN ---
Subjective - Date & Time of Evaluation Date of Evaluation: 02/24/17 Time of Evaluation: 10:51 - Subjective Subjective: Mr Pickard was seen and examined at the bedside. He is awake with episodes of coughing and spitting. The saliva noted orange-color (medications?). He is able to follow simple commands such as raising his upper extremities and moving his lower extremities. There was no untoward events overnight. Objective - Vital Signs/Intake and Output Vital Signs (last 24 hours): Temp Pulse Resp BP Pulse Ox 98.1 F 71 20 119/70 96 02/24/17 08:00 02/24/17 08:00 02/24/17 08:00 02/24/17 10:01 02/24/17 08:00 Intake and Output: 02/24/17 02/24/17 06:59 18:59 Intake Total 390 Output Total 400 Balance -10 - Medications Medications: Current Medications Acetaminophen (Tylenol 325mg Tab) 650 mg PO Q6 PRN PRN Reason: Fever >100.4 F Apixaban (Eliquis) 2.5 mg PO BID [facility] Last Admin: 02/24/17 10:03 Dose: 2.5 mg Aspirin (Aspirin Chewable) 81 mg PO DAILY [facility] Last Admin: 02/24/17 10:00 Dose: 81 mg Carvedilol (Coreg) 12.5 mg PO BID [facility] Last Admin: 02/24/17 10:01 Dose: 12.5 mg Chlorpromazine (Thorazine) 25 mg IM Q6 PRN PRN Reason: Hiccups Last Admin: 02/24/17 05:30 Dose: 25 mg Clopidogrel Bisulfate (Plavix) 75 mg PO DAILY [facility] Last Admin: 02/24/17 09:59 Dose: 75 mg Famotidine (Pepcid) 20 mg PO DAILY [facility] Last Admin: 02/24/17 09:59 Dose: 20 mg Furosemide (Lasix) 20 mg PO DAILY [facility] Last Admin: 02/24/17 10:01 Dose: 20 mg Cefepime HCl (Maxipime Iv 1 Gm Premix) 1 gm in 50 mls @ 100 mls/hr IVPB Q12H [facility] Last Admin: 02/24/17 09:56 Dose: 100 mls/hr Folic Acid 1 mg/ Sodium (Chloride) 100.2 mls @ 60 mls/hr IV DAILY [facility] Last Admin: 02/24/17 09:56 Dose: 60 mls/hr Lisinopril (Zestril) 10 mg PO DAILY [facility] Last Admin: 02/24/17 10:01 Dose: 10 mg Midodrine (Proamatine) 10 mg PO Q8 [facility] Last Admin: 02/24/17 05:32 Dose: 10 mg Montelukast Sodium (Singulair) 10 mg PO HS [facility] Last Admin: 02/23/17 22:44 Dose: 10 mg Multivitamins (Hexavitamin) 1 tab PO DAILY [facility] Last Admin: 02/24/17 09:59 Dose: 1 tab Polyethylene Glycol (Miralax) 17 gm PO BID PRN PRN Reason: Constipation Last Admin: 02/24/17 10:00 Dose: 17 gm Potassium Chloride (Potassium Chloride Oral Soln) 20 meq PO DAILY [facility] Last Admin: 02/24/17 09:59 Dose: 20 meq Rosuvastatin Calcium (Crestor) 20 mg PO HS [facility] Last Admin: 02/23/17 22:45 Dose: 20 mg Fluticasone/Salmeterol (Advair Diskus 250/50) 1 puff IH RQ12 [facility] Last Admin: 02/24/17 07:38 Dose: 1 puff Thiamine HCl (Vitamin B1 Inj) 100 mg IV DAILY [facility] Last Admin: 02/24/17 10:04 Dose: 100 mg Valproate Sodium (Depakene Oral Soln) 500 mg PO BID [facility] Last Admin: 02/24/17 10:02 Dose: 500 mg - Labs Labs: 02/16/17 11:19 02/18/17 06:57 PT 19.4 SECONDS (9.7-12.2) H 02/12/17 06:57 INR 1.7 02/12/17 06:57 APTT 32 SECONDS (21-34) 02/10/17 16:49 - Constitutional Appears: No Acute Distress - Head Exam Head Exam: ATRAUMATIC - Neurological Exam Neurological Exam: Alert, Awake Neuro motor strength exam: Left Upper Extremity: 5, Right Upper Extremity: 5, Left Lower Extremity: 2/1, Right Lower Extremity: 2/1 Additional comments: Neurological unchanged from previous examination. Assessment and Plan (1) Seizure Assessment & Plan: Case discussed with Dr. Chavis, will monitor depakote level. Recommend speech eval and treat. Continue all current medical, physical, and occupational therapies. Status: Acute
--- NOTE | 2017-02-24 12:44 | CP.PCM.PN ---
Subjective - Date & Time of Evaluation Date of Evaluation: 02/24/17 Time of Evaluation: 12:39 - Subjective Subjective: Lethargic, does not offer any complaints Objective - Vital Signs/Intake and Output Vital Signs (last 24 hours): Temp Pulse Resp BP Pulse Ox 98.1 F 71 20 119/70 96 02/24/17 08:00 02/24/17 08:00 02/24/17 08:00 02/24/17 10:01 02/24/17 08:00 Intake and Output: 02/24/17 02/24/17 06:59 18:59 Intake Total 390 Output Total 400 Balance -10 - Medications Medications: Current Medications Acetaminophen (Tylenol 325mg Tab) 650 mg PO Q6 PRN PRN Reason: Fever >100.4 F Apixaban (Eliquis) 2.5 mg PO BID [facility] Last Admin: 02/24/17 10:03 Dose: 2.5 mg Aspirin (Aspirin Chewable) 81 mg PO DAILY [facility] Last Admin: 02/24/17 10:00 Dose: 81 mg Carvedilol (Coreg) 12.5 mg PO BID [facility] Last Admin: 02/24/17 10:01 Dose: 12.5 mg Chlorpromazine (Thorazine) 25 mg IM Q6 PRN PRN Reason: Hiccups Last Admin: 02/24/17 05:30 Dose: 25 mg Clopidogrel Bisulfate (Plavix) 75 mg PO DAILY [facility] Last Admin: 02/24/17 09:59 Dose: 75 mg Famotidine (Pepcid) 20 mg PO DAILY [facility] Last Admin: 02/24/17 09:59 Dose: 20 mg Furosemide (Lasix) 20 mg PO DAILY [facility] Last Admin: 02/24/17 10:01 Dose: 20 mg Cefepime HCl (Maxipime Iv 1 Gm Premix) 1 gm in 50 mls @ 100 mls/hr IVPB Q12H [facility] Last Admin: 02/24/17 09:56 Dose: 100 mls/hr Folic Acid 1 mg/ Sodium (Chloride) 100.2 mls @ 60 mls/hr IV DAILY [facility] Last Admin: 02/24/17 09:56 Dose: 60 mls/hr Lisinopril (Zestril) 10 mg PO DAILY [facility] Last Admin: 02/24/17 10:01 Dose: 10 mg Midodrine (Proamatine) 10 mg PO Q8 [facility] Last Admin: 02/24/17 05:32 Dose: 10 mg Montelukast Sodium (Singulair) 10 mg PO HS [facility] Last Admin: 02/23/17 22:44 Dose: 10 mg Multivitamins (Hexavitamin) 1 tab PO DAILY [facility] Last Admin: 02/24/17 09:59 Dose: 1 tab Polyethylene Glycol (Miralax) 17 gm PO BID PRN PRN Reason: Constipation Last Admin: 02/24/17 10:00 Dose: 17 gm Potassium Chloride (Potassium Chloride Oral Soln) 20 meq PO DAILY [facility] Last Admin: 02/24/17 09:59 Dose: 20 meq Rosuvastatin Calcium (Crestor) 20 mg PO HS [facility] Last Admin: 02/23/17 22:45 Dose: 20 mg Fluticasone/Salmeterol (Advair Diskus 250/50) 1 puff IH RQ12 [facility] Last Admin: 02/24/17 07:38 Dose: 1 puff Thiamine HCl (Vitamin B1 Inj) 100 mg IV DAILY [facility] Last Admin: 02/24/17 10:04 Dose: 100 mg Valproate Sodium (Depakene Oral Soln) 500 mg PO BID [facility] Last Admin: 02/24/17 10:02 Dose: 500 mg - Labs Labs: 02/16/17 11:19 02/18/17 06:57 PT 19.4 SECONDS (9.7-12.2) H 02/12/17 06:57 INR 1.7 02/12/17 06:57 APTT 32 SECONDS (21-34) 02/10/17 16:49 - Constitutional Appears: No Acute Distress, Confused - Head Exam Head Exam: ATRAUMATIC, NORMAL INSPECTION, NORMOCEPHALIC - Eye Exam Eye Exam: EOMI, Normal appearance, PERRL Pupil Exam: NORMAL ACCOMODATION, PERRL - ENT Exam ENT Exam: Mucous Membranes Moist, Normal Exam - Neck Exam Neck Exam: Normal Inspection - Respiratory Exam Respiratory Exam: Decreased Breath Sounds, NORMAL BREATHING PATTERN - Cardiovascular Exam Cardiovascular Exam: REGULAR RHYTHM - GI/Abdominal Exam GI & Abdominal Exam: Soft, Hypoactive Bowel Sounds - Rectal Exam Rectal Exam: Deferred - Exam Additional comments: Rodas cath, urine cloudy, dark yellow - Extremities Exam Extremities Exam: Normal Inspection - Back Exam Back Exam: NORMAL INSPECTION - Neurological Exam Neurological Exam: Alert, Altered Neuro motor strength exam: Left Upper Extremity: 2/, Right Upper Extremity: 2/ , Left Lower Extremity: 2/, Right Lower Extremity: 2/ - Psychiatric Exam Psychiatric exam: Flat Affect - Skin Skin Exam: Pallor Assessment and Plan - Assessment and Plan (Free Text) Assessment: I was approached by the speech therapist with concerns regarding patient's poor PO intake and food pocketing. On exam, patient was very lethargic, easily aroused for brief moment than he goes back to sleep . Per nursing patient did not eat his dinner last night and was increasingly agitated for the last few days. Thorasine 25 mg Im Q 6 hr around the clock started. Rodas cath in place and urine to beg noted to be cloudy and concentrated. Latest urine analysis and C&S came back negative. UO for the last 24 hr was 400 c. Patient is on BP support. Latest BP 119/70, HR 71, O2Sat 96 % RA. I discussed this with Doctor Yanna who agreed with assessment and noticed that patient was started on IVF this morning. MRI brain is being considered if patient's condition does not improve. As of now , patient is not being planned for discharge , until condition more stable. Impression * Lethargy, most likely due to combination of dehydration and effects of Thorazine Im * Poor PO intake noted by nursing and speech Tx * Needs max assistance with care * Increased sleeping time * At risk for aspiration due to lethargy Suggestion * Would keep patient NPO * IVF for hydration * Monitor neuro status * Safety promotion * Strict I&O monitoring
[2017-02-24] MEDS: Sodium Chloride 0.9% 1,000 ML IV SCH (15:08)
[2017-02-25] MEDS: Sodium Chloride 0.9% 1,000 ML IV SCH ×4 (01:19→21:49)
[2017-02-25] MEDS: Fluticasone-Salmeterol 250-50mcg Diskus IH SCH ×2 (07:38→20:01)
[2017-02-25 08:21] LABS: ALB/GLOB RATIO 1.1 (1.0-2.1); ALKALINE PHOSPHATASE 63 U/L (38-126); ALT/SGPT 42 U/L (21-72); AST/SGOT 23 U/L (17-59); BILIRUBIN,TOTAL 1.3 mg/dL (0.2-1.3); BLOOD UREA NITROGEN 18 mg/dL (9-20); CALCIUM 7.6 mg/dl (8.6-10.4); CARBON DIOXIDE 31 mmol/L (22-30); CHLORIDE 109 mmol/L (98-107); GFR AFRICAN-AMERICAN > 60; GLUCOSE,RANDOM 97 mg/dL (75-110); MAGNESIUM 1.8 mg/dL (1.6-2.3); PHOSPHOROUS 2.6 mg/dL (2.5-4.5); POTASSIUM 3.2 mmol/L (3.6-5.2); SODIUM 143 mmol/L (132-148); TOTAL PROTEIN 5.1 g/dL (6.3-8.3)
[2017-02-25 08:24] LABS: BASO % 0.4 % (0.0-2.0); EOS # 0.1 K/uL (0.0-0.7); EOS % 1.1 % (0.0-4.0); HEMATOCRIT 30.6 % (35.0-51.0); LYMPH # 1.5 K/uL (1.0-4.3); LYMPH % 17.4 % (20.0-40.0); MEAN CELL VOLUME 81.4 fL (80.0-94.0); MEAN CORPUSCULAR HGB CONC 33.1 g/dL (33.0-37.0); MEAN PLATELET VOLUME 8.2 fL (7.2-11.7); MONO % 11.8 % (0.0-10.0); RED CELL DISTRIBUTION WIDTH 16.8 % (11.5-14.5); WHITE BLOOD COUNT 8.5 K/uL (4.8-10.8)
[2017-02-25] MEDS ORDERED: Potassium Chloride 20 mEq ER Tab PO ONE (09:33)
[2017-02-25] MEDS: Multiple Vitamins Tab PO SCH (09:48)
[2017-02-25] MEDS: Potassium Chloride 20 mEq/15 ml LIQ UD PO SCH (09:48)
--- NOTE | 2017-02-25 09:51 | CP.PCM.PN ---
Subjective - Date & Time of Evaluation Date of Evaluation: 02/25/17 Time of Evaluation: 08:00 - Subjective Subjective: Medicine Progress Note Patient seen and examined. Patient sleeping this morning, wakes up when aroused but appears lethargic today. No improvement in clinic condition. Patient responds in Ukrainian when spoken to by attending Dr Cardona. IV fluids were ordered yesterday due to poor oral intake. Patient unable to give proper ROS. Objective - Vital Signs/Intake and Output Vital Signs (last 24 hours): Temp Pulse Resp BP Pulse Ox 97.6 F 72 20 107/66 97 02/25/17 08:07 02/25/17 08:07 02/25/17 08:07 02/25/17 08:07 02/25/17 08:07 Intake and Output: 02/25/17 02/25/17 06:59 18:59 Intake Total 900 960 Output Total 300 200 Balance 600 760 - Medications Medications: Current Medications Apixaban (Eliquis) 2.5 mg PO BID [facility] Last Admin: 02/24/17 18:15 Dose: 2.5 mg Aspirin (Aspirin Chewable) 81 mg PO DAILY [facility] Last Admin: 02/24/17 10:00 Dose: 81 mg Carvedilol (Coreg) 12.5 mg PO BID [facility] Last Admin: 02/24/17 18:14 Dose: Not Given Chlorpromazine (Thorazine) 25 mg IM Q6 PRN PRN Reason: Hiccups Last Admin: 02/25/17 06:21 Dose: 25 mg Clopidogrel Bisulfate (Plavix) 75 mg PO DAILY [facility] Last Admin: 02/24/17 09:59 Dose: 75 mg Famotidine (Pepcid) 20 mg PO DAILY [facility] Last Admin: 02/24/17 09:59 Dose: 20 mg Furosemide (Lasix) 20 mg PO DAILY [facility] Last Admin: 02/24/17 10:01 Dose: 20 mg Folic Acid 1 mg/ Sodium (Chloride) 100.2 mls @ 60 mls/hr IV DAILY [facility] Last Admin: 02/24/17 09:56 Dose: 60 mls/hr Sodium Chloride (Sodium Chloride 0.9%) 1,000 mls @ 100 mls/hr IV .Q10H [facility] Last Admin: 02/25/17 01:19 Dose: 100 mls/hr Lisinopril (Zestril) 10 mg PO DAILY [facility] Last Admin: 02/24/17 10:01 Dose: 10 mg Midodrine (Proamatine) 10 mg PO Q8 [facility] Last Admin: 02/25/17 06:18 Dose: 10 mg Montelukast Sodium (Singulair) 10 mg PO HS [facility] Last Admin: 02/24/17 21:33 Dose: 10 mg Multivitamins (Hexavitamin) 1 tab PO DAILY [facility] Last Admin: 02/24/17 09:59 Dose: 1 tab Polyethylene Glycol (Miralax) 17 gm PO BID PRN PRN Reason: Constipation Last Admin: 02/24/17 10:00 Dose: 17 gm Potassium Chloride (Potassium Chloride Oral Soln) 20 meq PO DAILY [facility] Last Admin: 02/24/17 09:59 Dose: 20 meq Potassium Chloride (K-Dur 20 Meq Er Tab) 40 meq PO ONCE ONE Stop: 02/25/17 09:34 Rosuvastatin Calcium (Crestor) 20 mg PO [facility] Last Admin: 02/24/17 21:32 Dose: 20 mg Fluticasone/Salmeterol (Advair Diskus 250/50) 1 puff IH RQ12 [facility] Last Admin: 02/25/17 07:38 Dose: 1 puff Thiamine HCl (Vitamin B1 Inj) 100 mg IV DAILY [facility] Last Admin: 02/24/17 10:04 Dose: 100 mg Valproate Sodium (Depakene Oral Soln) 500 mg PO BID [facility] Last Admin: 02/24/17 18:15 Dose: 500 mg - Labs Labs: 02/25/17 08:04 02/25/17 08:04 PT 19.4 SECONDS (9.7-12.2) H 02/12/17 06:57 INR 1.7 02/12/17 06:57 APTT 32 SECONDS (21-34) 02/10/17 16:49 - Constitutional Appears: Non-toxic, No Acute Distress - Head Exam Head Exam: ATRAUMATIC, NORMOCEPHALIC - Eye Exam Eye Exam: EOMI, Normal appearance - ENT Exam ENT Exam: Mucous Membranes Moist - Respiratory Exam Respiratory Exam: Clear to Ausculation Bilateral, NORMAL BREATHING PATTERN. absent: Rhonchi, Wheezes, Respiratory Distress - Cardiovascular Exam Cardiovascular Exam: REGULAR RHYTHM, +S1, +S2 - GI/Abdominal Exam GI & Abdominal Exam: Soft, Normal Bowel Sounds - Extremities Exam Extremities Exam: Normal Inspection. absent: Pedal Edema - Neurological Exam Neurological Exam: Awake. 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 RPR, HIV, B12, folate negative 02/10 blood culture negative 02/10 urine culture negative Ammonia normal 02/12 CT head- no acute changes from 12/31, chronic ischemic changes Dr. Chavis consulted, help appreciated Speech therapy recommends thin liquid diet, aspirations precautions. Seizure 02/16 EEG report abnormal and shows seizure activity Continue Keppra 500mg PO BID. Spoke with YOLANDA Becerril regarding patient's lethargy. Will add Amantadine 100mg PO daily and assess. Neurologist Dr Chavis consulted- help appreciated Oral thrush, resolved Most likely from chronic steroid use with COPD and patient not washing mouth out afterwords Dr. Garay, consulted- help appreciated Diflucan 100mg IV daily started 02/11, last dose on 02/17 Liquid diet as per speech and swallow Fever, resolved No fever since admission Cefepime 1g IV q12H started 02/11. Stopped Vancomycin 1000mg IV q12H. started 02/11. Tylenol PRN. blood culture negative urine culture negative No source of infection at this point; likely viral illness that resolved itself and abx are not needed upon discharge. CHF; chronic Continue Coreg 12.5mg PO BID, Lasix 20mg PO daily, midodrine 10mg PO q8H and Lisinopril 10mg PO daily. Hx of CAD Continue ASA 81mg PO daily, Crestor 20mg PO HS, Eliquis 2.5mg PO BID, Plavix 75mg PO daily. COPD;chronic and stable Continue Advair, Singulair. Prophylactic measure Pepcid, Eliquis/Plavix. SCD contraindicated for fall risk. PT/OT. Dispo: patient is likely stable for d/c back to senior care - has agreed that LTAC[facility] is the best option for him Management as per Dr. Cardona
[2017-02-25] MEDS: Thiamine 100 mg/ml Inj IV SCH (09:54)
[2017-02-25] MEDS: Valproic Acid 250 mg/5 ml UD Cup PO SCH ×2 (09:55→17:24)
--- NOTE | 2017-02-25 10:11 | CP.PCM.PN ---
Subjective - Date & Time of Evaluation Date of Evaluation: 02/25/17 Time of Evaluation: 10:08 - Subjective Subjective: Mr. Pickard was seen and examined at the bedside. He is alert, awake and able to follow simple commands such as finger accommodation, raising his upper extremities and move lower extremities. He tries to mumble words with no incomprehensible words. He remains with poor appetite. There was no untoward events overnight. Objective - Vital Signs/Intake and Output Vital Signs (last 24 hours): Temp Pulse Resp BP Pulse Ox 97.6 F 72 20 102/64 97 02/25/17 08:07 02/25/17 08:07 02/25/17 08:07 02/25/17 09:53 02/25/17 08:07 Intake and Output: 02/25/17 02/25/17 06:59 18:59 Intake Total 900 960 Output Total 300 200 Balance 600 760 - Medications Medications: Current Medications Apixaban (Eliquis) 2.5 mg PO BID [facility] Last Admin: 02/25/17 09:48 Dose: 2.5 mg Aspirin (Aspirin Chewable) 81 mg PO DAILY [facility] Last Admin: 02/25/17 09:54 Dose: 81 mg Carvedilol (Coreg) 12.5 mg PO BID [facility] Last Admin: 02/25/17 09:48 Dose: 12.5 mg Chlorpromazine (Thorazine) 25 mg IM Q6 PRN PRN Reason: Hiccups Last Admin: 02/25/17 06:21 Dose: 25 mg Clopidogrel Bisulfate (Plavix) 75 mg PO DAILY [facility] Last Admin: 02/25/17 09:48 Dose: 75 mg Famotidine (Pepcid) 20 mg PO DAILY [facility] Last Admin: 02/25/17 09:55 Dose: 20 mg Furosemide (Lasix) 20 mg PO DAILY [facility] Last Admin: 02/25/17 09:53 Dose: 20 mg Folic Acid 1 mg/ Sodium (Chloride) 100.2 mls @ 60 mls/hr IV DAILY [facility] Last Admin: 02/25/17 09:57 Dose: 60 mls/hr Sodium Chloride (Sodium Chloride 0.9%) 1,000 mls @ 100 mls/hr IV .Q10H [facility] Last Admin: 02/25/17 01:19 Dose: 100 mls/hr Lisinopril (Zestril) 10 mg PO DAILY [facility] Last Admin: 02/25/17 09:54 Dose: 10 mg Midodrine (Proamatine) 10 mg PO Q8 [facility] Last Admin: 02/25/17 06:18 Dose: 10 mg Montelukast Sodium (Singulair) 10 mg PO HS [facility] Last Admin: 02/24/17 21:33 Dose: 10 mg Multivitamins (Hexavitamin) 1 tab PO DAILY [facility] Last Admin: 02/25/17 09:48 Dose: 1 tab Polyethylene Glycol (Miralax) 17 gm PO BID PRN PRN Reason: Constipation Last Admin: 02/24/17 10:00 Dose: 17 gm Potassium Chloride (Potassium Chloride Oral Soln) 20 meq PO DAILY [facility] Last Admin: 02/25/17 09:48 Dose: 20 meq Rosuvastatin Calcium (Crestor) 20 mg PO HS [facility] Last Admin: 02/24/17 21:32 Dose: 20 mg Fluticasone/Salmeterol (Advair Diskus 250/50) 1 puff IH RQ12 [facility] Last Admin: 02/25/17 07:38 Dose: 1 puff Thiamine HCl (Vitamin B1 Inj) 100 mg IV DAILY [facility] Last Admin: 02/25/17 09:54 Dose: 100 mg Valproate Sodium (Depakene Oral Soln) 500 mg PO BID [facility] Last Admin: 02/25/17 09:55 Dose: 500 mg - Labs Labs: 02/25/17 08:04 02/25/17 08:04 PT 19.4 SECONDS (9.7-12.2) H 02/12/17 06:57 INR 1.7 02/12/17 06:57 APTT 32 SECONDS (21-34) 02/10/17 16:49 - Constitutional Appears: No Acute Distress - Head Exam Head Exam: ATRAUMATIC - Neurological Exam Neurological Exam: Awake Neuro motor strength exam: Left Upper Extremity: 4, Right Upper Extremity: 4, Left Lower Extremity: 3, Right Lower Extremity: 3 Additional comments: Neurological unchanged from previous examination. - Psychiatric Exam Psychiatric exam: Normal Affect, Normal Mood Assessment and Plan (1) Seizure Assessment & Plan: Case discussed with Dr. Chavis, with depakote level of 57, recommend to continue current depakote dose. Continue all current medical, physical, occupational, and speech therapies. Status: Acute
[2017-02-25] MEDS: Amantadine 50 mg/5 ml Syrup (473 ml) PO SCH (12:13)
[2017-02-26] MEDS: Sodium Chloride 0.9% 1,000 ML IV SCH (07:05)
[2017-02-26] MEDS: Fluticasone-Salmeterol 250-50mcg Diskus IH SCH (07:31)
[2017-02-26] MEDS: Amantadine 50 mg/5 ml Syrup (473 ml) PO SCH (09:20)
[2017-02-26] MEDS: Valproic Acid 250 mg/5 ml UD Cup PO SCH ×2 (09:21→18:21)
[2017-02-26] MEDS: Thiamine 100 mg/ml Inj IV SCH (09:22)
[2017-02-26] MEDS: Multiple Vitamins Tab PO SCH (09:23)
[2017-02-26] MEDS: Potassium Chloride 20 mEq/15 ml LIQ UD PO SCH (09:25)
--- NOTE | 2017-02-26 09:28 | CP.PCM.PN ---
Subjective - Date & Time of Evaluation Date of Evaluation: 02/26/17 Time of Evaluation: 09:26 - Subjective Subjective: Mr. blanco was seen and examined at the bedside. He is alert, awake and able to state his name and count until 5. He is able to follow simple commands such as finger accommodation, strength test, and squeezing his bilateral upper extremities. He remains with poor appetite. There was no untoward events overnight. Objective - Vital Signs/Intake and Output Vital Signs (last 24 hours): Temp Pulse Resp BP Pulse Ox 98.5 F 76 20 114/72 97 02/26/17 08:46 02/26/17 08:46 02/26/17 08:46 02/26/17 08:46 02/26/17 08:46 Intake and Output: 02/26/17 02/26/17 06:59 18:59 Intake Total 1700 Output Total 300 Balance 1400 - Medications Medications: Current Medications Amantadine HCl (Symmetrel) 100 mg PO DAILY [facility] Last Admin: 02/26/17 09:20 Dose: 100 mg Apixaban (Eliquis) 2.5 mg PO BID [facility] Last Admin: 02/26/17 09:25 Dose: 2.5 mg Aspirin (Aspirin Chewable) 81 mg PO DAILY [facility] Last Admin: 02/26/17 09:23 Dose: 81 mg Carvedilol (Coreg) 12.5 mg PO BID [facility] Last Admin: 02/25/17 17:25 Dose: 12.5 mg Chlorpromazine (Thorazine) 25 mg IM Q6 PRN PRN Reason: Hiccups Last Admin: 02/25/17 13:03 Dose: 25 mg Clopidogrel Bisulfate (Plavix) 75 mg PO DAILY [facility] Last Admin: 02/26/17 09:24 Dose: 75 mg Famotidine (Pepcid) 20 mg PO DAILY [facility] Last Admin: 02/26/17 09:25 Dose: 20 mg Furosemide (Lasix) 20 mg PO DAILY [facility] Last Admin: 02/25/17 09:53 Dose: 20 mg Folic Acid 1 mg/ Sodium (Chloride) 100.2 mls @ 60 mls/hr IV DAILY [facility] Last Admin: 02/26/17 09:21 Dose: 60 mls/hr Sodium Chloride (Sodium Chloride 0.9%) 1,000 mls @ 100 mls/hr IV .Q10H [facility] Last Admin: 02/26/17 07:05 Dose: 100 mls/hr Lisinopril (Zestril) 10 mg PO DAILY [facility] Last Admin: 02/25/17 09:54 Dose: 10 mg Midodrine (Proamatine) 10 mg PO Q8 [facility] Last Admin: 02/26/17 06:01 Dose: 10 mg Montelukast Sodium (Singulair) 10 mg PO HS [facility] Last Admin: 02/25/17 21:27 Dose: 10 mg Multivitamins (Hexavitamin) 1 tab PO DAILY [facility] Last Admin: 02/26/17 09:23 Dose: 1 tab Polyethylene Glycol (Miralax) 17 gm PO BID PRN PRN Reason: Constipation Last Admin: 02/24/17 10:00 Dose: 17 gm Potassium Chloride (Potassium Chloride Oral Soln) 20 meq PO DAILY [facility] Last Admin: 02/26/17 09:25 Dose: 20 meq Rosuvastatin Calcium (Crestor) 20 mg PO HS [facility] Last Admin: 02/25/17 21:27 Dose: 20 mg Fluticasone/Salmeterol (Advair Diskus 250/50) 1 puff IH RQ12 [facility] Last Admin: 02/26/17 07:31 Dose: Not Given Thiamine HCl (Vitamin B1 Inj) 100 mg IV DAILY [facility] Last Admin: 02/26/17 09:22 Dose: 100 mg Valproate Sodium (Depakene Oral Soln) 500 mg PO BID [facility] Last Admin: 02/26/17 09:21 Dose: 500 mg - Labs Labs: 02/25/17 08:04 02/25/17 08:04 PT 19.4 SECONDS (9.7-12.2) H 02/12/17 06:57 INR 1.7 02/12/17 06:57 APTT 32 SECONDS (21-34) 02/10/17 16:49 - Constitutional Appears: No Acute Distress - Head Exam Head Exam: ATRAUMATIC - Neurological Exam Neurological Exam: Awake Neuro motor strength exam: Left Upper Extremity: 4, Right Upper Extremity: 4, Left Lower Extremity: 3, Right Lower Extremity: 3 Additional comments: Neurological improving in comparison from previous examination. He is able to verbalize his name and count until 5. Sensation remains intact. Assessment and Plan (1) Seizure Assessment & Plan: Case discussed with Dr. Korya, recommend Amantidine 100 mg PO daily to keep the patient more awake during the day and assist with his therapies. Please refer to primary physician regarding poor PO intake. Continue all other medical, physical, and occupational therapies. Status: Acute
--- NOTE | 2017-02-26 11:14 | CP.PCM.PN ---
Subjective - Date & Time of Evaluation Date of Evaluation: 02/26/17 Time of Evaluation: 11:03 - Subjective Subjective: Medicine Progress Note Patient seen and examined. Patient is more alert today and speaking. No acute events overnight. Will evaluate oral intake today. Objective - Vital Signs/Intake and Output Vital Signs (last 24 hours): Temp Pulse Resp BP Pulse Ox 98.5 F 76 20 114/72 97 02/26/17 08:46 02/26/17 08:46 02/26/17 08:46 02/26/17 09:26 02/26/17 08:46 Intake and Output: 02/26/17 02/26/17 06:59 18:59 Intake Total 1700 Output Total 300 Balance 1400 - Medications Medications: Current Medications Amantadine HCl (Symmetrel) 100 mg PO DAILY [facility] Last Admin: 02/26/17 09:20 Dose: 100 mg Apixaban (Eliquis) 2.5 mg PO BID [facility] Last Admin: 02/26/17 09:25 Dose: 2.5 mg Aspirin (Aspirin Chewable) 81 mg PO DAILY [facility] Last Admin: 02/26/17 09:23 Dose: 81 mg Carvedilol (Coreg) 12.5 mg PO BID [facility] Last Admin: 02/26/17 09:26 Dose: 12.5 mg Chlorpromazine (Thorazine) 25 mg IM Q6 PRN PRN Reason: Hiccups Last Admin: 02/25/17 13:03 Dose: 25 mg Clopidogrel Bisulfate (Plavix) 75 mg PO DAILY [facility] Last Admin: 02/26/17 09:24 Dose: 75 mg Famotidine (Pepcid) 20 mg PO DAILY [facility] Last Admin: 02/26/17 09:25 Dose: 20 mg Furosemide (Lasix) 20 mg PO DAILY [facility] Last Admin: 02/26/17 09:26 Dose: 20 mg Folic Acid 1 mg/ Sodium (Chloride) 100.2 mls @ 60 mls/hr IV DAILY [facility] Last Admin: 02/26/17 09:21 Dose: 60 mls/hr Sodium Chloride (Sodium Chloride 0.9%) 1,000 mls @ 100 mls/hr IV .Q10H [facility] Last Admin: 02/26/17 07:05 Dose: 100 mls/hr Lisinopril (Zestril) 10 mg PO DAILY [facility] Last Admin: 02/26/17 09:26 Dose: 10 mg Midodrine (Proamatine) 10 mg PO Q8 [facility] Last Admin: 02/26/17 06:01 Dose: 10 mg Montelukast Sodium (Singulair) 10 mg PO HS [facility] Last Admin: 02/25/17 21:27 Dose: 10 mg Multivitamins (Hexavitamin) 1 tab PO DAILY [facility] Last Admin: 02/26/17 09:23 Dose: 1 tab Polyethylene Glycol (Miralax) 17 gm PO BID PRN PRN Reason: Constipation Last Admin: 02/24/17 10:00 Dose: 17 gm Potassium Chloride (Potassium Chloride Oral Soln) 20 meq PO DAILY [facility] Last Admin: 02/26/17 09:25 Dose: 20 meq Rosuvastatin Calcium (Crestor) 20 mg PO HS [facility] Last Admin: 02/25/17 21:27 Dose: 20 mg Fluticasone/Salmeterol (Advair Diskus 250/50) 1 puff IH RQ12 [facility] Last Admin: 02/26/17 07:31 Dose: Not Given Thiamine HCl (Vitamin B1 Inj) 100 mg IV DAILY [facility] Last Admin: 02/26/17 09:22 Dose: 100 mg Valproate Sodium (Depakene Oral Soln) 500 mg PO BID [facility] Last Admin: 02/26/17 09:21 Dose: 500 mg - Labs Labs: 02/25/17 08:04 02/25/17 08:04 PT 19.4 SECONDS (9.7-12.2) H 02/12/17 06:57 INR 1.7 02/12/17 06:57 APTT 32 SECONDS (21-34) 02/10/17 16:49 - Constitutional Appears: Non-toxic, No Acute Distress - Head Exam Head Exam: ATRAUMATIC, NORMOCEPHALIC - Eye Exam Eye Exam: EOMI, Normal appearance - ENT Exam ENT Exam: Mucous Membranes Moist - Respiratory Exam Respiratory Exam: Clear to Ausculation Bilateral, NORMAL BREATHING PATTERN. absent: Rhonchi, Wheezes, Respiratory Distress - Cardiovascular Exam Cardiovascular Exam: REGULAR RHYTHM, +S1, +S2 - GI/Abdominal Exam GI & Abdominal Exam: Soft, Normal Bowel Sounds - Extremities Exam Extremities Exam: Normal Inspection. absent: Pedal Edema - Neurological Exam Neurological Exam: Awake, Alert. 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 RPR, HIV, B12, folate negative 02/10 blood culture negative 02/10 urine culture negative Ammonia normal 02/12 CT head- no acute changes from 12/31, chronic ischemic changes Dr. Chavis consulted, help appreciated Speech therapy recommends thin liquid diet, aspirations precautions. Seizure 02/16 EEG report abnormal and shows seizure activity Continue Depakene 500mg PO david BID. Spoke with RN Jone regarding patient's lethargy. Amantadine 100mg PO daily added Neurologist Dr Chavis consulted- help appreciated Oral thrush, resolved Most likely from chronic steroid use with COPD and patient not washing mouth out afterwords Dr. Garay, consulted- help appreciated Diflucan 100mg IV daily started 02/11, last dose on 02/17 Liquid diet as per speech and swallow Fever, resolved No fever since admission Cefepime 1g IV q12H started 02/11. Stopped Vancomycin 1000mg IV q12H. started 02/11. Tylenol PRN. blood culture negative urine culture negative No source of infection at this point; likely viral illness that resolved itself and abx are not needed upon discharge. CHF; chronic Continue Coreg 12.5mg PO BID, Lasix 20mg PO daily, midodrine 10mg PO q8H and Lisinopril 10mg PO daily. Hx of CAD Continue ASA 81mg PO daily, Crestor 20mg PO HS, Eliquis 2.5mg PO BID, Plavix 75mg PO daily. COPD;chronic and stable Continue Advair, Singulair. Prophylactic measure Pepcid, Eliquis/Plavix. SCD contraindicated for fall risk. PT/OT. Dispo: patient is likely stable for d/c back to [facility] - has agreed that LTAC/[facility] is the best option for him Management as per Dr. Cardona
--- NOTE | 2017-02-26 16:45 | CP.PCM.PN ---
Subjective - Date & Time of Evaluation Date of Evaluation: 02/26/17 Time of Evaluation: 07:00 - Subjective Subjective: awake alert NAD afebrile Objective - Vital Signs/Intake and Output Vital Signs (last 24 hours): Temp Pulse Resp BP Pulse Ox 97.3 F L 74 20 118/76 97 02/26/17 15:00 02/26/17 15:00 02/26/17 15:00 02/26/17 15:00 02/26/17 15:00 Intake and Output: 02/26/17 02/26/17 06:59 18:59 Intake Total 1700 1100 Output Total 300 450 Balance 1400 650 - Medications Medications: Current Medications Amantadine HCl (Symmetrel) 100 mg PO DAILY [facility] Last Admin: 02/26/17 09:20 Dose: 100 mg Apixaban (Eliquis) 2.5 mg PO BID [facility] Last Admin: 02/26/17 09:25 Dose: 2.5 mg Aspirin (Aspirin Chewable) 81 mg PO DAILY [facility] Last Admin: 02/26/17 09:23 Dose: 81 mg Carvedilol (Coreg) 12.5 mg PO BID [facility] Last Admin: 02/26/17 09:26 Dose: 12.5 mg Chlorpromazine (Thorazine) 25 mg IM Q6 PRN PRN Reason: Hiccups Last Admin: 02/26/17 14:35 Dose: 25 mg Clopidogrel Bisulfate (Plavix) 75 mg PO DAILY [facility] Last Admin: 02/26/17 09:24 Dose: 75 mg Famotidine (Pepcid) 20 mg PO DAILY [facility] Last Admin: 02/26/17 09:25 Dose: 20 mg Furosemide (Lasix) 20 mg PO DAILY [facility] Last Admin: 02/26/17 09:26 Dose: 20 mg Folic Acid 1 mg/ Sodium (Chloride) 100.2 mls @ 60 mls/hr IV DAILY [facility] Last Admin: 02/26/17 09:21 Dose: 60 mls/hr Lisinopril (Zestril) 10 mg PO DAILY [facility] Last Admin: 02/26/17 09:26 Dose: 10 mg Midodrine (Proamatine) 10 mg PO Q8 [facility] Last Admin: 02/26/17 13:34 Dose: 10 mg Montelukast Sodium (Singulair) 10 mg PO HS [facility] Last Admin: 02/25/17 21:27 Dose: 10 mg Multivitamins (Hexavitamin) 1 tab PO DAILY [facility] Last Admin: 02/26/17 09:23 Dose: 1 tab Polyethylene Glycol (Miralax) 17 gm PO BID PRN PRN Reason: Constipation Last Admin: 02/24/17 10:00 Dose: 17 gm Potassium Chloride (Potassium Chloride Oral Soln) 20 meq PO DAILY [facility] Last Admin: 02/26/17 09:25 Dose: 20 meq Rosuvastatin Calcium (Crestor) 20 mg PO HS [facility] Last Admin: 02/25/17 21:27 Dose: 20 mg Fluticasone/Salmeterol (Advair Diskus 250/50) 1 puff IH RQ12 [facility] Last Admin: 02/26/17 07:31 Dose: Not Given Thiamine HCl (Vitamin B1 Inj) 100 mg IV DAILY [facility] Last Admin: 02/26/17 09:22 Dose: 100 mg Valproate Sodium (Depakene Oral Soln) 500 mg PO BID [facility] Last Admin: 02/26/17 09:21 Dose: 500 mg - Labs Labs: 02/25/17 08:04 02/25/17 08:04 PT 19.4 SECONDS (9.7-12.2) H 02/12/17 06:57 INR 1.7 02/12/17 06:57 APTT 32 SECONDS (21-34) 02/10/17 16:49 - Constitutional Appears: Non-toxic, Chronically Ill - Head Exam Head Exam: NORMOCEPHALIC - Eye Exam Eye Exam: PERRL - ENT Exam ENT Exam: Mucous Membranes Dry - Neck Exam Neck Exam: absent: Lymphadenopathy - Respiratory Exam Respiratory Exam: Decreased Breath Sounds - Cardiovascular Exam Cardiovascular Exam: REGULAR RHYTHM - GI/Abdominal Exam GI & Abdominal Exam: Distended, Soft - Rectal Exam Rectal Exam: Deferred Assessment and Plan (1) Confusion Status: Acute (2) Fever Status: Acute - Assessment and Plan (Free Text) Plan: cont rx
[2017-02-27] MEDS: Fluticasone-Salmeterol 250-50mcg Diskus IH SCH ×2 (07:56→20:00)
[2017-02-27] MEDS: Valproic Acid 250 mg/5 ml UD Cup PO SCH ×2 (10:34→19:14)
[2017-02-27] MEDS: Multiple Vitamins Tab PO SCH (10:35)
[2017-02-27] MEDS: Potassium Chloride 20 mEq/15 ml LIQ UD PO SCH (10:37)
[2017-02-27] MEDS: Thiamine 100 mg/ml Inj IV SCH (10:38)
[2017-02-27] MEDS: Amantadine 50 mg/5 ml Syrup (473 ml) PO SCH ×2 (10:53→11:48)
[2017-02-28] MEDS: Fluticasone-Salmeterol 250-50mcg Diskus IH SCH ×2 (07:35→19:41)
[2017-02-28] MEDS: Multiple Vitamins Tab PO SCH (10:40)
[2017-02-28] MEDS: POLYETHYLENE GLYCOL 3350 17 GM/Dose PACKET PO PRN (10:41)
[2017-02-28] MEDS: Potassium Chloride 20 mEq/15 ml LIQ UD PO SCH (10:41)
[2017-02-28] MEDS: Valproic Acid 250 mg/5 ml UD Cup PO SCH ×2 (10:45→17:13)
[2017-02-28] MEDS: Thiamine 100 mg/ml Inj IV SCH (10:45)
[2017-02-28] MEDS: Amantadine 50 mg/5 ml Syrup (473 ml) PO SCH (10:46)
[2017-03-01] MEDS: Fluticasone-Salmeterol 250-50mcg Diskus IH SCH ×2 (07:13→19:50)
[2017-03-01 07:51] LABS: BASO # 0.1 K/uL (0.0-0.2); BASO % 0.7 % (0.0-2.0); EOS # 0.1 K/uL (0.0-0.7); EOS % 1.3 % (0.0-4.0); HEMATOCRIT 31.6 % (35.0-51.0); LYMPH # 1.7 K/uL (1.0-4.3); LYMPH % 21.1 % (20.0-40.0); MEAN CELL VOLUME 82.4 fL (80.0-94.0); MEAN CORPUSCULAR HEMOGLOBIN 27.3 pg (27.0-31.0); MEAN CORPUSCULAR HGB CONC 33.1 g/dL (33.0-37.0); MONO # 0.8 K/uL (0.0-0.8); MONO % 10.3 % (0.0-10.0); RED CELL DISTRIBUTION WIDTH 17.3 % (11.5-14.5); WHITE BLOOD COUNT 8.1 K/uL (4.8-10.8)
[2017-03-01 08:08] LABS: ALB/GLOB RATIO 1.1 (1.0-2.1); ALKALINE PHOSPHATASE 73 U/L (38-126); ALT/SGPT 47 U/L (21-72); AST/SGOT 29 U/L (17-59); BILIRUBIN,TOTAL 0.9 mg/dL (0.2-1.3); BLOOD UREA NITROGEN 16 mg/dL (9-20); CALCIUM 7.5 mg/dl (8.6-10.4); CARBON DIOXIDE 33 mmol/L (22-30); CHLORIDE 108 mmol/L (98-107); GFR AFRICAN-AMERICAN > 60; GLUCOSE,RANDOM 92 mg/dL (75-110); MAGNESIUM 1.8 mg/dL (1.6-2.3); PHOSPHOROUS 2.7 mg/dL (2.5-4.5); POTASSIUM 3.2 mmol/L (3.6-5.2); SODIUM 144 mmol/L (132-148); TOTAL PROTEIN 5.1 g/dL (6.3-8.3)
[2017-03-01] MEDS ORDERED: Potassium Chloride 20 mEq ER Tab PO ONE (09:08)
--- NOTE | 2017-03-01 09:19 | CP.PCM.PN ---
Subjective - Date & Time of Evaluation Date of Evaluation: 03/01/17 Time of Evaluation: 09:17 - Subjective Subjective: Mr. Pickard was seen and examined at the bedside. He is awake, able to follow simple commands such as finger accommodation, raising his bilateral upper extremities, and moves his lower extremities. He mumbles romansh words and denies any headache, nausea, or vomiting using non-verbal cues such as nodding or shaking his head. There was no untoward events overnight. Objective - Vital Signs/Intake and Output Vital Signs (last 24 hours): Temp Pulse Resp BP Pulse Ox 98 F 76 20 116/76 98 03/01/17 07:41 03/01/17 07:41 03/01/17 07:41 03/01/17 07:41 03/01/17 07:41 Intake and Output: 03/01/17 03/01/17 06:59 18:59 Intake Total 200 Output Total 450 Balance -250 - Medications Medications: Current Medications Amantadine HCl (Symmetrel) 100 mg PO DAILY [facility] Last Admin: 02/28/17 10:46 Dose: 100 mg Apixaban (Eliquis) 2.5 mg PO BID [facility] Last Admin: 02/28/17 17:13 Dose: 2.5 mg Aspirin (Aspirin Chewable) 81 mg PO DAILY [facility] Last Admin: 02/28/17 10:41 Dose: 81 mg Carvedilol (Coreg) 12.5 mg PO BID [facility] Last Admin: 02/28/17 18:00 Dose: Not Given Chlorpromazine (Thorazine) 25 mg IM Q6 PRN PRN Reason: Hiccups Last Admin: 03/01/17 02:47 Dose: 25 mg Clopidogrel Bisulfate (Plavix) 75 mg PO DAILY [facility] Last Admin: 02/28/17 10:40 Dose: 75 mg Famotidine (Pepcid) 20 mg PO DAILY [facility] Last Admin: 02/28/17 10:40 Dose: 20 mg Folic Acid (Folic Acid) 1 mg PO DAILY [facility] Last Admin: 02/28/17 10:45 Dose: 1 mg Lisinopril (Zestril) 10 mg PO DAILY [facility] Last Admin: 02/28/17 10:41 Dose: 10 mg Midodrine (Proamatine) 10 mg PO Q8 [facility] Last Admin: 03/01/17 06:11 Dose: 10 mg Montelukast Sodium (Singulair) 10 mg PO HS [facility] Last Admin: 02/28/17 21:15 Dose: 10 mg Multivitamins (Hexavitamin) 1 tab PO DAILY [facility] Last Admin: 02/28/17 10:40 Dose: 1 tab Polyethylene Glycol (Miralax) 17 gm PO BID PRN PRN Reason: Constipation Last Admin: 02/28/17 10:41 Dose: 17 gm Potassium Chloride (Potassium Chloride Oral Soln) 20 meq PO DAILY [facility] Last Admin: 02/28/17 10:41 Dose: 20 meq Rosuvastatin Calcium (Crestor) 20 mg PO HS [facility] Last Admin: 02/28/17 21:15 Dose: 20 mg Fluticasone/Salmeterol (Advair Diskus 250/50) 1 puff IH RQ12 [facility] Last Admin: 03/01/17 07:13 Dose: Not Given Thiamine HCl (Vitamin B1 Inj) 100 mg IV DAILY [facility] Last Admin: 02/28/17 10:45 Dose: 100 mg Valproate Sodium (Depakene Oral Soln) 500 mg PO BID [facility] Last Admin: 02/28/17 17:13 Dose: 500 mg - Labs Labs: 03/01/17 07:34 03/01/17 07:34 PT 19.4 SECONDS (9.7-12.2) H 02/12/17 06:57 INR 1.7 02/12/17 06:57 APTT 32 SECONDS (21-34) 02/10/17 16:49 - Constitutional Appears: No Acute Distress - Head Exam Head Exam: ATRAUMATIC - Neurological Exam Neurological Exam: Awake Neuro motor strength exam: Left Upper Extremity: 4, Right Upper Extremity: 4, Left Lower Extremity: 2/1, Right Lower Extremity: 2/1 Assessment and Plan (1) Seizure Assessment & Plan: Case discussed with Dr. Chavis, continue all current medical, physical, and occupational therapies. There is no new recommendation from neurology. Status: Acute
[2017-03-01] MEDS: Potassium Chloride 20 mEq/15 ml LIQ UD PO SCH (10:12)
[2017-03-01] MEDS: Multiple Vitamins Tab PO SCH (10:13)
[2017-03-01] MEDS: Valproic Acid 250 mg/5 ml UD Cup PO SCH ×2 (10:15→17:22)
[2017-03-01] MEDS: Amantadine 50 mg/5 ml Syrup (473 ml) PO SCH (10:16)
[2017-03-01] MEDS: Thiamine 100 mg/ml Inj IV SCH (10:17)
[2017-03-01] MEDS ORDERED: Potassium Chloride 20 mEq/15 ml LIQ UD PO ONE (10:30)
--- NOTE | 2017-03-01 14:29 | CP.PCM.PN ---
Subjective - Date & Time of Evaluation Date of Evaluation: 03/01/17 Time of Evaluation: 09:20 - Subjective Subjective: PGY-2 Medicine Progress Note for Dr. Cardona Patient seen and examined at bedside. No acute events reported overnight. Patient is resting in bed comfortably. Per staff, patient is having adequate oral intake. Objective - Vital Signs/Intake and Output Vital Signs (last 24 hours): Temp Pulse Resp BP Pulse Ox 98 F 64 20 116/76 96 03/01/17 07:41 03/01/17 10:45 03/01/17 07:41 03/01/17 10:14 03/01/17 10:45 Intake and Output: 03/01/17 03/01/17 06:59 18:59 Intake Total 200 Output Total 450 Balance -250 - Medications Medications: Current Medications Amantadine HCl (Symmetrel) 100 mg PO DAILY [facility] Last Admin: 03/01/17 10:16 Dose: 100 mg Apixaban (Eliquis) 2.5 mg PO BID [facility] Last Admin: 03/01/17 10:15 Dose: 2.5 mg Aspirin (Aspirin Chewable) 81 mg PO DAILY [facility] Last Admin: 03/01/17 10:13 Dose: 81 mg Carvedilol (Coreg) 12.5 mg PO BID [facility] Last Admin: 03/01/17 10:14 Dose: 12.5 mg Chlorpromazine (Thorazine) 25 mg IM Q6 PRN PRN Reason: Hiccups Last Admin: 03/01/17 02:47 Dose: 25 mg Clopidogrel Bisulfate (Plavix) 75 mg PO DAILY [facility] Last Admin: 03/01/17 10:13 Dose: 75 mg Famotidine (Pepcid) 20 mg PO DAILY [facility] Last Admin: 03/01/17 10:13 Dose: 20 mg Folic Acid (Folic Acid) 1 mg PO DAILY [facility] Last Admin: 03/01/17 10:13 Dose: 1 mg Lisinopril (Zestril) 10 mg PO DAILY [facility] Last Admin: 03/01/17 10:13 Dose: 10 mg Midodrine (Proamatine) 10 mg PO Q8 [facility] Last Admin: 03/01/17 14:15 Dose: 10 mg Montelukast Sodium (Singulair) 10 mg PO HS [facility] Last Admin: 02/28/17 21:15 Dose: 10 mg Multivitamins (Hexavitamin) 1 tab PO DAILY [facility] Last Admin: 03/01/17 10:13 Dose: 1 tab Polyethylene Glycol (Miralax) 17 gm PO BID PRN PRN Reason: Constipation Last Admin: 02/28/17 10:41 Dose: 17 gm Potassium Chloride (Potassium Chloride Oral Soln) 20 meq PO DAILY [facility] Last Admin: 03/01/17 10:12 Dose: 20 meq Rosuvastatin Calcium (Crestor) 20 mg PO HS [facility] Last Admin: 02/28/17 21:15 Dose: 20 mg Fluticasone/Salmeterol (Advair Diskus 250/50) 1 puff IH RQ12 [facility] Last Admin: 03/01/17 07:13 Dose: Not Given Thiamine HCl (Vitamin B1 Inj) 100 mg IV DAILY [facility] Last Admin: 03/01/17 10:17 Dose: 100 mg Valproate Sodium (Depakene Oral Soln) 500 mg PO BID [facility] Last Admin: 03/01/17 10:15 Dose: 500 mg - Labs Labs: 03/01/17 07:34 03/01/17 07:34 PT 19.4 SECONDS (9.7-12.2) H 02/12/17 06:57 INR 1.7 02/12/17 06:57 APTT 32 SECONDS (21-34) 02/10/17 16:49 - Constitutional Appears: Non-toxic, No Acute Distress - Head Exam Head Exam: ATRAUMATIC, NORMOCEPHALIC - Eye Exam Eye Exam: Normal appearance - ENT Exam ENT Exam: Mucous Membranes Moist, Normal Exam - Neck Exam Neck Exam: Normal Inspection - Respiratory Exam Respiratory Exam: Clear to Ausculation Bilateral, NORMAL BREATHING PATTERN - Cardiovascular Exam Cardiovascular Exam: REGULAR RHYTHM, +S1, +S2 - GI/Abdominal Exam GI & Abdominal Exam: Soft, Normal Bowel Sounds. 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 Spoke with RN Jone regarding patient's lethargy. Amantadine 100mg PO daily added Follow Neurology recommendations Hypokalemia Continue potassium chloride 20meq po daily Monitor electrolyte, Supplement as needed CHF; chronic Continue Coreg 12.5mg PO BID, Lasix 20mg PO daily, midodrine 10mg PO q8H and Lisinopril 10mg PO daily. Hx of CAD Continue ASA 81mg PO daily, Crestor 20mg PO HS, Eliquis 2.5mg PO BID, Plavix 75mg PO daily. COPD;chronic and stable Continue Advair, Singulair. Prophylactic measure Pepcid, Eliquis/Plavix, miralax, thorazine SCD contraindicated for fall risk. PT/OT Dispo: LTAC/snf placement pending Management as per Dr. Cardona
[2017-03-02] MEDS: Fluticasone-Salmeterol 250-50mcg Diskus IH SCH ×2 (07:28→19:28)
[2017-03-02] MEDS: Potassium Chloride 20 mEq/15 ml LIQ UD PO SCH (10:19)
[2017-03-02] MEDS: Multiple Vitamins Tab PO SCH (10:19)
[2017-03-02] MEDS: Valproic Acid 250 mg/5 ml UD Cup PO SCH ×2 (10:30→17:33)
[2017-03-02] MEDS: Amantadine 50 mg/5 ml Syrup (473 ml) PO SCH (10:30)
[2017-03-02] MEDS: Thiamine 100 mg/ml Inj IV SCH (10:31)
--- NOTE | 2017-03-02 15:15 | CP.PCM.PN ---
Subjective - Date & Time of Evaluation Date of Evaluation: 03/02/17 Time of Evaluation: 09:55 - Subjective Subjective: PGY2 medicine progress note for Dr. Cardona Patient seen and examined. Patient awake and looking around room but does not respond to questioning. Per nursing report, patient not eating much this morning. Objective - Vital Signs/Intake and Output Vital Signs (last 24 hours): Temp Pulse Resp BP Pulse Ox 98 F 78 20 113/62 95 03/02/17 07:25 03/02/17 07:25 03/02/17 07:25 03/02/17 10:19 03/02/17 07:25 Intake and Output: 03/02/17 03/02/17 06:59 18:59 Intake Total 260 50 Output Total 500 300 Balance -240 -250 - Medications Medications: Current Medications Amantadine HCl (Symmetrel) 100 mg PO DAILY [facility] Last Admin: 03/02/17 10:30 Dose: 100 mg Apixaban (Eliquis) 2.5 mg PO BID [facility] Last Admin: 03/02/17 10:31 Dose: 2.5 mg Aspirin (Aspirin Chewable) 81 mg PO DAILY [facility] Last Admin: 03/02/17 10:19 Dose: 81 mg Carvedilol (Coreg) 12.5 mg PO BID [facility] Last Admin: 03/02/17 10:19 Dose: 12.5 mg Chlorpromazine (Thorazine) 25 mg IM Q6 PRN PRN Reason: Hiccups Last Admin: 03/02/17 10:32 Dose: 25 mg Clopidogrel Bisulfate (Plavix) 75 mg PO DAILY [facility] Last Admin: 03/02/17 10:19 Dose: 75 mg Famotidine (Pepcid) 20 mg PO DAILY [facility] Last Admin: 03/02/17 10:19 Dose: 20 mg Folic Acid (Folic Acid) 1 mg PO DAILY [facility] Last Admin: 03/02/17 10:19 Dose: 1 mg Lisinopril (Zestril) 10 mg PO DAILY [facility] Last Admin: 03/02/17 10:19 Dose: 10 mg Midodrine (Proamatine) 10 mg PO Q8 [facility] Last Admin: 03/02/17 14:16 Dose: 10 mg Montelukast Sodium (Singulair) 10 mg PO HS [facility] Last Admin: 03/01/17 21:25 Dose: 10 mg Multivitamins (Hexavitamin) 1 tab PO DAILY [facility] Last Admin: 03/02/17 10:19 Dose: 1 tab Polyethylene Glycol (Miralax) 17 gm PO BID PRN PRN Reason: Constipation Last Admin: 02/28/17 10:41 Dose: 17 gm Potassium Chloride (Potassium Chloride Oral Soln) 20 meq PO DAILY [facility] Last Admin: 03/02/17 10:19 Dose: 20 meq Rosuvastatin Calcium (Crestor) 20 mg PO HS [facility] Last Admin: 03/01/17 21:25 Dose: 20 mg Fluticasone/Salmeterol (Advair Diskus 250/50) 1 puff IH RQ12 [facility] Last Admin: 03/02/17 07:28 Dose: Not Given Thiamine HCl (Vitamin B1 Inj) 100 mg IV DAILY [facility] Last Admin: 03/02/17 10:31 Dose: 100 mg Valproate Sodium (Depakene Oral Soln) 500 mg PO BID [facility] Last Admin: 03/02/17 10:30 Dose: 500 mg - Labs Labs: 03/01/17 07:34 03/01/17 07:34 PT 19.4 SECONDS (9.7-12.2) H 02/12/17 06:57 INR 1.7 02/12/17 06:57 APTT 32 SECONDS (21-34) 02/10/17 16:49 - Constitutional Appears: No Acute Distress, Chronically Ill - Eye Exam Eye Exam: EOMI - ENT Exam ENT Exam: Mucous Membranes Moist - Respiratory Exam Respiratory Exam: Clear to Ausculation Bilateral - Cardiovascular Exam Cardiovascular Exam: +S1, +S2 - GI/Abdominal Exam GI & Abdominal Exam: Soft - Exam Additional comments: stock[place] catheter with dark urine - Extremities Exam Extremities Exam: Normal Inspection - Neurological Exam Neurological Exam: Awake - Skin Skin Exam: Warm Assessment and Plan - Assessment and Plan (Free Text) Assessment: 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 Spoke with YOLANDA Becerril regarding patient's lethargy. Amantadine 100mg PO daily added Follow Neurology recommendations Hypokalemia Continue potassium chloride 20meq po daily Monitor electrolyte, Supplement as needed CHF chronic Continue Coreg 12.5mg PO BID, midodrine 10mg PO q8H and Lisinopril 10mg PO daily. Hx of CAD Continue ASA 81mg PO daily, Crestor 20mg PO HS, Eliquis 2.5mg PO BID, Plavix 75mg PO daily. COPD chronic and stable Continue Advair Singulair. Prophylactic measure Pepcid, Eliquis/Plavix, miralax, thorazine SCD contraindicated for fall risk. PT/OT stock[place] catheter removed, will monitor for patient voiding Management as per Dr. Cardona discharge to [facility] pending family decision
[2017-03-03] MEDS: Fluticasone-Salmeterol 250-50mcg Diskus IH SCH ×2 (07:23→19:46)
[2017-03-03 08:28] LABS: BLOOD UREA NITROGEN 18 mg/dL (9-20); CALCIUM 7.7 mg/dl (8.6-10.4); CARBON DIOXIDE 30 mmol/L (22-30); CHLORIDE 106 mmol/L (98-107); GFR AFRICAN-AMERICAN > 60; GLUCOSE,RANDOM 91 mg/dL (75-110); POTASSIUM 3.5 mmol/L (3.6-5.2); SODIUM 140 mmol/L (132-148)
--- NOTE | 2017-03-03 09:10 | CP.PCM.PN ---
<Dori Sandoval - Last Filed: 03/03/17 09:11> Subjective - Date & Time of Evaluation Date of Evaluation: 03/03/17 Time of Evaluation: 09:10 - Subjective Subjective: Mr. Pickard was seen and examined at the bedside. He is alert, able to participate during assessment. He is able to answer questions using non-verbal cues, but verbalizes in Turkmen words. He is able to move his upper extremities without any problem with minimal weakness with his lower extremities. This has been his strength from previous examination. According to the PT staff, he is more alert today and yesterday in participating with his therapies. There was no untoward events overnight. Objective - Vital Signs/Intake and Output Vital Signs (last 24 hours): Temp Pulse Resp BP Pulse Ox 98.1 F 70 20 115/66 96 03/03/17 08:39 03/03/17 08:39 03/03/17 08:39 03/03/17 08:39 03/03/17 08:39 Intake and Output: 03/03/17 03/03/17 06:59 18:59 Intake Total 135 Output Total 300 Balance -165 - Medications Medications: Current Medications Amantadine HCl (Symmetrel) 100 mg PO BID [facility] Apixaban (Eliquis) 2.5 mg PO BID [facility] Last Admin: 03/02/17 17:34 Dose: 2.5 mg Aspirin (Aspirin Chewable) 81 mg PO DAILY [facility] Last Admin: 03/02/17 10:19 Dose: 81 mg Carvedilol (Coreg) 12.5 mg PO BID [facility] Last Admin: 03/02/17 17:34 Dose: Not Given Chlorpromazine (Thorazine) 25 mg IM Q6 PRN PRN Reason: Hiccups Last Admin: 03/02/17 21:21 Dose: 25 mg Clopidogrel Bisulfate (Plavix) 75 mg PO DAILY [facility] Last Admin: 03/02/17 10:19 Dose: 75 mg Famotidine (Pepcid) 20 mg PO DAILY [facility] Last Admin: 03/02/17 10:19 Dose: 20 mg Folic Acid (Folic Acid) 1 mg PO DAILY [facility] Last Admin: 03/02/17 10:19 Dose: 1 mg Lisinopril (Zestril) 10 mg PO DAILY [facility] Last Admin: 03/02/17 10:19 Dose: 10 mg Midodrine (Proamatine) 10 mg PO Q8 [facility] Last Admin: 03/03/17 06:07 Dose: 10 mg Montelukast Sodium (Singulair) 10 mg PO HS [facility] Last Admin: 03/02/17 21:19 Dose: 10 mg Multivitamins (Hexavitamin) 1 tab PO DAILY [facility] Last Admin: 03/02/17 10:19 Dose: 1 tab Polyethylene Glycol (Miralax) 17 gm PO BID PRN PRN Reason: Constipation Last Admin: 02/28/17 10:41 Dose: 17 gm Potassium Chloride (Potassium Chloride Oral Soln) 20 meq PO DAILY [facility] Last Admin: 03/02/17 10:19 Dose: 20 meq Rosuvastatin Calcium (Crestor) 20 mg PO HS [facility] Last Admin: 03/02/17 21:19 Dose: 20 mg Fluticasone/Salmeterol (Advair Diskus 250/50) 1 puff IH RQ12 [facility] Last Admin: 03/03/17 07:23 Dose: Not Given Thiamine HCl (Vitamin B1 Inj) 100 mg IV DAILY [facility] Last Admin: 03/02/17 10:31 Dose: 100 mg Valproate Sodium (Depakene Oral Soln) 500 mg PO BID [facility] Last Admin: 03/02/17 17:33 Dose: 500 mg - Labs Labs: 03/01/17 07:34 03/03/17 07:54 PT 19.4 SECONDS (9.7-12.2) H 02/12/17 06:57 INR 1.7 02/12/17 06:57 APTT 32 SECONDS (21-34) 02/10/17 16:49 - Constitutional Appears: No Acute Distress - Head Exam Head Exam: ATRAUMATIC - Neurological Exam Neurological Exam: Alert, Awake Neuro motor strength exam: Left Upper Extremity: 4, Right Upper Extremity: 5, Left Lower Extremity: 3, Right Lower Extremity: 3 Additional comments: Neurological improved from previous examination. Assessment and Plan (1) Seizure Assessment & Plan: Case idscussed with Dr. Chavis, recommends increase Amantadine 100 mg PO BID and monitor valproic level. Continue current medical, physical, and occupational therapies. Status: Acute <Tello Chavis - Last Filed: 03/03/17 10:59> Objective - Vital Signs/Intake and Output Vital Signs (last 24 hours): Temp Pulse Resp BP Pulse Ox 98.1 F 70 20 115/66 96 03/03/17 08:39 03/03/17 08:39 03/03/17 08:39 03/03/17 10:16 03/03/17 08:39 Intake and Output: 03/03/17 03/03/17 06:59 18:59 Intake Total 135 Output Total 300 Balance -165 - Medications Medications: Current Medications Amantadine HCl (Symmetrel) 100 mg PO BID [facility] Last Admin: 03/03/17 10:13 Dose: 100 mg Apixaban (Eliquis) 2.5 mg PO BID [facility] Last Admin: 03/03/17 10:13 Dose: 2.5 mg Aspirin (Aspirin Chewable) 81 mg PO DAILY [facility] Last Admin: 03/03/17 10:12 Dose: 81 mg Carvedilol (Coreg) 12.5 mg PO BID [facility] Last Admin: 03/03/17 10:16 Dose: 12.5 mg Chlorpromazine (Thorazine) 25 mg IM Q6 PRN PRN Reason: Hiccups Last Admin: 03/02/17 21:21 Dose: 25 mg Clopidogrel Bisulfate (Plavix) 75 mg PO DAILY [facility] Last Admin: 03/03/17 10:12 Dose: 75 mg Famotidine (Pepcid) 20 mg PO DAILY [facility] Last Admin: 03/03/17 10:12 Dose: 20 mg Folic Acid (Folic Acid) 1 mg PO DAILY [facility] Last Admin: 03/03/17 10:12 Dose: 1 mg Lisinopril (Zestril) 10 mg PO DAILY [facility] Last Admin: 03/03/17 10:12 Dose: 10 mg Midodrine (Proamatine) 10 mg PO Q8 [facility] Last Admin: 03/03/17 06:07 Dose: 10 mg Montelukast Sodium (Singulair) 10 mg PO HS [facility] Last Admin: 03/02/17 21:19 Dose: 10 mg Multivitamins (Hexavitamin) 1 tab PO DAILY [facility] Last Admin: 03/03/17 10:12 Dose: 1 tab Polyethylene Glycol (Miralax) 17 gm PO BID PRN PRN Reason: Constipation Last Admin: 03/03/17 10:12 Dose: 17 gm Potassium Chloride (Potassium Chloride Oral Soln) 20 meq PO DAILY [facility] Last Admin: 03/03/17 10:14 Dose: 20 meq Rosuvastatin Calcium (Crestor) 20 mg PO HS [facility] Last Admin: 03/02/17 21:19 Dose: 20 mg Fluticasone/Salmeterol (Advair Diskus 250/50) 1 puff IH RQ12 [facility] Last Admin: 03/03/17 07:23 Dose: Not Given Thiamine HCl (Vitamin B1 Inj) 100 mg IV DAILY [facility] Last Admin: 03/03/17 10:14 Dose: 100 mg Valproate Sodium (Depakene Oral Soln) 500 mg PO BID [facility] Last Admin: 03/03/17 10:13 Dose: 500 mg - Labs Labs: 03/01/17 07:34 03/03/17 07:54 PT 19.4 SECONDS (9.7-12.2) H 02/12/17 06:57 INR 1.7 02/12/17 06:57 APTT 32 SECONDS (21-34) 02/10/17 16:49 Assessment and Plan (1) Encephalopathy acute Assessment & Plan: The patient appears to be more lethargic. We will switch him from Depakote to Vimpat in hopes of decreasing the amount of sedation. Will also check the depakote level and repeat an EEG today. Status: Acute (2) Confusion Status: Acute (3) Chronic congestive heart failure Status: Chronic
[2017-03-03] MEDS: POLYETHYLENE GLYCOL 3350 17 GM/Dose PACKET PO PRN (10:12)
[2017-03-03] MEDS: Multiple Vitamins Tab PO SCH (10:12)
[2017-03-03] MEDS: Valproic Acid 250 mg/5 ml UD Cup PO SCH (10:13)
[2017-03-03] MEDS: Amantadine 50 mg/5 ml Syrup (473 ml) PO SCH ×2 (10:13→17:16)
[2017-03-03] MEDS: Thiamine 100 mg/ml Inj IV SCH (10:14)
[2017-03-03] MEDS: Potassium Chloride 20 mEq/15 ml LIQ UD PO SCH (10:14)
--- NOTE | 2017-03-03 13:49 | CP.PCM.PN ---
Subjective - Date & Time of Evaluation Date of Evaluation: 03/03/17 Time of Evaluation: 09:00 - Subjective Subjective: PGY2 medicine progress note for Dr. Cardona: Patient seen and examined. Patient could not void after stock[place] catheter removed yesterday. Patient lethargic but does respond verbally. Per nursing, patient not eating or drinking much. Objective - Vital Signs/Intake and Output Vital Signs (last 24 hours): Temp Pulse Resp BP Pulse Ox 98.1 F 70 20 115/66 96 03/03/17 08:39 03/03/17 08:39 03/03/17 08:39 03/03/17 10:16 03/03/17 08:39 Intake and Output: 03/03/17 03/03/17 06:59 18:59 Intake Total 135 Output Total 300 Balance -165 - Medications Medications: Current Medications Amantadine HCl (Symmetrel) 100 mg PO BID [facility] Last Admin: 03/03/17 10:13 Dose: 100 mg Apixaban (Eliquis) 2.5 mg PO BID [facility] Last Admin: 03/03/17 10:13 Dose: 2.5 mg Aspirin (Aspirin Chewable) 81 mg PO DAILY [facility] Last Admin: 03/03/17 10:12 Dose: 81 mg Carvedilol (Coreg) 12.5 mg PO BID [facility] Last Admin: 03/03/17 10:16 Dose: 12.5 mg Chlorpromazine (Thorazine) 25 mg IM Q6 PRN PRN Reason: Hiccups Last Admin: 03/02/17 21:21 Dose: 25 mg Clopidogrel Bisulfate (Plavix) 75 mg PO DAILY [facility] Last Admin: 03/03/17 10:12 Dose: 75 mg Famotidine (Pepcid) 20 mg PO DAILY [facility] Last Admin: 03/03/17 10:12 Dose: 20 mg Folic Acid (Folic Acid) 1 mg PO DAILY [facility] Last Admin: 03/03/17 10:12 Dose: 1 mg Lisinopril (Zestril) 10 mg PO DAILY [facility] Last Admin: 03/03/17 10:12 Dose: 10 mg Midodrine (Proamatine) 10 mg PO Q8 [facility] Last Admin: 03/03/17 13:15 Dose: 10 mg Montelukast Sodium (Singulair) 10 mg PO HS [facility] Last Admin: 03/02/17 21:19 Dose: 10 mg Multivitamins (Hexavitamin) 1 tab PO DAILY [facility] Last Admin: 03/03/17 10:12 Dose: 1 tab Polyethylene Glycol (Miralax) 17 gm PO BID PRN PRN Reason: Constipation Last Admin: 03/03/17 10:12 Dose: 17 gm Potassium Chloride (Potassium Chloride Oral Soln) 20 meq PO DAILY [facility] Last Admin: 03/03/17 10:14 Dose: 20 meq Rosuvastatin Calcium (Crestor) 20 mg PO HS [facility] Last Admin: 03/02/17 21:19 Dose: 20 mg Fluticasone/Salmeterol (Advair Diskus 250/50) 1 puff IH RQ12 [facility] Last Admin: 03/03/17 07:23 Dose: Not Given Tamsulosin HCl (Flomax) 0.4 mg PO DAILY [facility] Thiamine HCl (Vitamin B1 Inj) 100 mg IV DAILY [facility] Last Admin: 03/03/17 10:14 Dose: 100 mg Topiramate (Topamax) 25 mg PO BID [facility] Last Admin: 03/03/17 13:20 Dose: 25 mg - Labs Labs: 03/01/17 07:34 03/03/17 07:54 PT 19.4 SECONDS (9.7-12.2) H 02/12/17 06:57 INR 1.7 02/12/17 06:57 APTT 32 SECONDS (21-34) 02/10/17 16:49 - Constitutional Appears: No Acute Distress, Chronically Ill - Head Exam Head Exam: ATRAUMATIC - Eye Exam Eye Exam: EOMI - ENT Exam ENT Exam: Mucous Membranes Dry - Respiratory Exam Respiratory Exam: Decreased Breath Sounds - Cardiovascular Exam Cardiovascular Exam: +S1, +S2 - GI/Abdominal Exam GI & Abdominal Exam: Soft - Exam Additional comments: [place] catheter - Neurological Exam Neurological Exam: Awake - Skin Skin Exam: Warm Assessment and Plan - Assessment and Plan (Free Text) Assessment: 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; stable Palliative care spoke with who agrees that patient needs alf placement RPR, HIV, B12, folate, ammonia, blood and urine cultures negative 02/12 CT head- no acute changes from 12/31, chronic ischemic changes Speech therapy recommends thin liquid diet, aspirations precautions Follow Neurology recommendations increased amantadine 100mg po BID change Depakote to Vimpat to decrease sedation Seizure 02/16 EEG report abnormal and shows seizure activity Follow Neurology recommendations increased amantadine 100mg po BID change Depakote to Vimpat to decrease sedation Hypokalemia Continue potassium chloride 20meq po daily Monitor electrolyte, Supplement as needed CHF chronic Continue Coreg 12.5mg PO BID, midodrine 10mg PO q8H and Lisinopril 10mg PO daily. Urine retention patient not able to void after stock[place] catheter removal catheter re-inserted will start flomax Hx of CAD Continue ASA 81mg PO daily, Crestor 20mg PO HS, Eliquis 2.5mg PO BID, Plavix 75mg PO daily. COPD chronic and stable Continue Advair, Singulair. Prophylactic measure Pepcid, Eliquis/Plavix, miralax, thorazine SCD contraindicated for fall risk. PT/OT Management as per Dr. Cardona discharge to [facility] pending
[2017-03-04] MEDS: Fluticasone-Salmeterol 250-50mcg Diskus IH SCH (07:19)
--- NOTE | 2017-03-04 08:43 | CP.PCM.PN ---
Subjective - Date & Time of Evaluation Date of Evaluation: 03/04/17 Time of Evaluation: 08:39 - Subjective Subjective: Mr. Pickard was seen and examined at the bedside. He is more alert and able to follow simple commands. He uses non-verbal communication skills to answer questions such as nodding or shaking his head. He denies any headache, blurred vision, dizziness, nause, or vomiting. He is able to move his upper extremities spontaneously without any pain. He moves his lower extremities but still with mild weakness. There was no untoward events overnight. Objective - Vital Signs/Intake and Output Vital Signs (last 24 hours): Temp Pulse Resp BP Pulse Ox 98 F 71 20 114/71 96 03/03/17 23:27 03/03/17 23:27 03/03/17 23:27 03/03/17 23:27 03/03/17 23:27 Intake and Output: 03/04/17 03/04/17 06:59 18:59 Intake Total 80 Output Total 550 Balance -470 - Medications Medications: Current Medications Amantadine HCl (Symmetrel) 100 mg PO BID [facility] Last Admin: 03/03/17 17:16 Dose: 100 mg Apixaban (Eliquis) 2.5 mg PO BID [facility] Last Admin: 03/03/17 17:08 Dose: 2.5 mg Aspirin (Aspirin Chewable) 81 mg PO DAILY [facility] Last Admin: 03/03/17 10:12 Dose: 81 mg Carvedilol (Coreg) 12.5 mg PO BID [facility] Last Admin: 03/03/17 17:08 Dose: 12.5 mg Chlorpromazine (Thorazine) 25 mg IM Q6 PRN PRN Reason: Hiccups Last Admin: 03/02/17 21:21 Dose: 25 mg Clopidogrel Bisulfate (Plavix) 75 mg PO DAILY [facility] Last Admin: 03/03/17 10:12 Dose: 75 mg Famotidine (Pepcid) 20 mg PO DAILY [facility] Last Admin: 03/03/17 10:12 Dose: 20 mg Folic Acid (Folic Acid) 1 mg PO DAILY [facility] Last Admin: 03/03/17 10:12 Dose: 1 mg Lisinopril (Zestril) 10 mg PO DAILY [facility] Last Admin: 03/03/17 10:12 Dose: 10 mg Midodrine (Proamatine) 10 mg PO Q8 [facility] Last Admin: 03/04/17 06:45 Dose: 10 mg Montelukast Sodium (Singulair) 10 mg PO HS [facility] Last Admin: 03/03/17 21:43 Dose: 10 mg Multivitamins (Hexavitamin) 1 tab PO DAILY [facility] Last Admin: 03/03/17 10:12 Dose: 1 tab Polyethylene Glycol (Miralax) 17 gm PO BID PRN PRN Reason: Constipation Last Admin: 03/03/17 10:12 Dose: 17 gm Potassium Chloride (Potassium Chloride Oral Soln) 20 meq PO DAILY [facility] Last Admin: 03/03/17 10:14 Dose: 20 meq Rosuvastatin Calcium (Crestor) 20 mg PO HS [facility] Last Admin: 03/03/17 21:42 Dose: 20 mg Fluticasone/Salmeterol (Advair Diskus 250/50) 1 puff IH RQ12 [facility] Last Admin: 03/04/17 07:19 Dose: Not Given Tamsulosin HCl (Flomax) 0.4 mg PO DAILY [facility] Thiamine HCl (Vitamin B1 Inj) 100 mg IV DAILY [facility] Last Admin: 03/03/17 10:14 Dose: 100 mg Topiramate (Topamax) 25 mg PO BID [facility] Last Admin: 03/03/17 17:08 Dose: 25 mg - Labs Labs: 03/01/17 07:34 03/03/17 07:54 PT 19.4 SECONDS (9.7-12.2) H 02/12/17 06:57 INR 1.7 02/12/17 06:57 APTT 32 SECONDS (21-34) 02/10/17 16:49 - Constitutional Appears: No Acute Distress - Head Exam Head Exam: ATRAUMATIC - Neurological Exam Neurological Exam: Alert, Awake Neuro motor strength exam: Left Upper Extremity: 5, Right Upper Extremity: 5, Left Lower Extremity: 3, Right Lower Extremity: 3 Additional comments: Neurological improved from previous examination. Sensation remains intact. Assessment and Plan (1) Seizure Assessment & Plan: Case discussed with Dr. Chavis, recommends to change depakote to Topamax 25 mg PO BID to prevent sleepiness of the patient during the day. Continue all other medical, physical, and occupational therapies. Status: Acute
[2017-03-04] MEDS: Multiple Vitamins Tab PO SCH (10:13)
[2017-03-04] MEDS: Potassium Chloride 20 mEq/15 ml LIQ UD PO SCH (10:14)
[2017-03-04] MEDS: Amantadine 50 mg/5 ml Syrup (473 ml) PO SCH (10:15)
[2017-03-04] MEDS: Thiamine 100 mg/ml Inj IV SCH (10:16)
[2017-03-04 13:46] VITALS: PULSE 88
[2017-03-04 15:35] VITALS: BP 119/16; O2SAT 98
--- NOTE | 2017-03-04 16:19 | CP.PCM.PN ---
Subjective - Date & Time of Evaluation Date of Evaluation: 03/04/17 Time of Evaluation: 09:10 - Subjective Subjective: PGY-[address] Cardona Patient seen and examined at bedside. No acute events overnight. Patient awake and looking around room, smiles when the patient spoken to. Patient remains stable with no change in clinical condition. Objective - Vital Signs/Intake and Output Vital Signs (last 24 hours): Temp Pulse Resp BP Pulse Ox 98.5 F 88 20 119/16 L 98 03/04/17 12:46 03/04/17 15:24 03/04/17 12:46 03/04/17 15:24 03/04/17 15:24 Intake and Output: 03/04/17 03/04/17 06:59 18:59 Intake Total 80 120 Output Total 550 250 Balance -470 -130 - Medications Medications: Current Medications Amantadine HCl (Symmetrel) 100 mg PO BID [facility] Last Admin: 03/04/17 10:15 Dose: 100 mg Apixaban (Eliquis) 2.5 mg PO BID [facility] Last Admin: 03/04/17 10:14 Dose: 2.5 mg Aspirin (Aspirin Chewable) 81 mg PO DAILY [facility] Last Admin: 03/04/17 10:14 Dose: 81 mg Carvedilol (Coreg) 12.5 mg PO BID [facility] Last Admin: 03/04/17 11:00 Dose: 12.5 mg Chlorpromazine (Thorazine) 25 mg IM Q6 PRN PRN Reason: Hiccups Last Admin: 03/04/17 10:15 Dose: 25 mg Clopidogrel Bisulfate (Plavix) 75 mg PO DAILY [facility] Last Admin: 03/04/17 10:14 Dose: 75 mg Famotidine (Pepcid) 20 mg PO DAILY [facility] Last Admin: 03/04/17 10:14 Dose: 20 mg Folic Acid (Folic Acid) 1 mg PO DAILY [facility] Last Admin: 03/04/17 10:13 Dose: 1 mg Lisinopril (Zestril) 10 mg PO DAILY [facility] Last Admin: 03/04/17 10:14 Dose: 10 mg Midodrine (Proamatine) 10 mg PO Q8 [facility] Last Admin: 03/04/17 14:31 Dose: 10 mg Montelukast Sodium (Singulair) 10 mg PO HS [facility] Last Admin: 03/03/17 21:43 Dose: 10 mg Multivitamins (Hexavitamin) 1 tab PO DAILY [facility] Last Admin: 03/04/17 10:13 Dose: 1 tab Polyethylene Glycol (Miralax) 17 gm PO BID PRN PRN Reason: Constipation Last Admin: 03/03/17 10:12 Dose: 17 gm Potassium Chloride (Potassium Chloride Oral Soln) 20 meq PO DAILY [facility] Last Admin: 03/04/17 10:14 Dose: 20 meq Rosuvastatin Calcium (Crestor) 20 mg PO HS [facility] Last Admin: 03/03/17 21:42 Dose: 20 mg Fluticasone/Salmeterol (Advair Diskus 250/50) 1 puff IH RQ12 [facility] Last Admin: 03/04/17 07:19 Dose: Not Given Tamsulosin HCl (Flomax) 0.4 mg PO DAILY [facility] Last Admin: 03/04/17 10:14 Dose: 0.4 mg Thiamine HCl (Vitamin B1 Inj) 100 mg IV DAILY [facility] Last Admin: 03/04/17 10:16 Dose: 100 mg Topiramate (Topamax) 25 mg PO BID [facility] Last Admin: 03/04/17 10:41 Dose: 25 mg - Labs Labs: 03/01/17 07:34 03/03/17 07:54 PT 19.4 SECONDS (9.7-12.2) H 02/12/17 06:57 INR 1.7 02/12/17 06:57 APTT 32 SECONDS (21-34) 02/10/17 16:49 - Constitutional Appears: Non-toxic, No Acute Distress - Head Exam Head Exam: ATRAUMATIC, NORMOCEPHALIC - Eye Exam Eye Exam: Normal appearance - ENT Exam ENT Exam: Mucous Membranes Moist - Respiratory Exam Respiratory Exam: Clear to Ausculation Bilateral, NORMAL BREATHING PATTERN. absent: Respiratory Distress - Cardiovascular Exam Cardiovascular Exam: +S1, +S2 - GI/Abdominal Exam GI & Abdominal Exam: Soft, Normal Bowel Sounds - Exam Additional comments: [place] intact with maribell color urine in the collection bag - Extremities Exam Extremities Exam: Normal Inspection. absent: Joint Swelling - Neurological Exam Neurological Exam: Alert, Awake. 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; stable Palliative care spoke with who agrees that patient needs care home placement RPR, HIV, B12, folate, ammonia, blood and urine cultures negative 02/12 CT head- no acute changes from 12/31, chronic ischemic changes Speech therapy recommends thin liquid diet, aspirations precautions Follow Neurology recommendations: amantadine 100mg po BID, Topiramate 25mg po BID Cleared to be discharged to short term rehab per neurology team Seizure 02/16 EEG report abnormal and shows seizure activity Follow Neurology recommendations: amantadine 100mg po BID, Topiramate 25mg po BI Hypokalemia Continue potassium chloride 20meq po daily Monitor electrolyte, Supplement as needed CHF chronic Continue Coreg 12.5mg PO BID, midodrine 10mg PO q8H and Lisinopril 10mg PO daily. Urine retention patient not able to void after [place] catheter removal catheter re-inserted Continue flomax Hx of CAD Continue ASA 81mg PO daily, Crestor 20mg PO HS, Eliquis 2.5mg PO BID, Plavix 75mg PO daily. COPD chronic and stable Continue Advair, Singulair. Prophylactic measure Pepcid, Eliquis/Plavix, miralax, thorazine SCD contraindicated for fall risk. PT/OT Management as per Dr. Cardona Discharge to [facility]
[2017-03-04 16:20] VITALS: TEMP 98.4
== END 2017-03-04 17:52 | DRG 56 ==
LOC: C.ER 15:54 → C.9E 17:20 → C.3T 02-11 11:51
PROVIDERS: ADMIT Internal Medicine Pulmonary Disease; ATTEND Internal Medicine Pulmonary Disease
DX: G31.09 Other frontotemporal neurocognitive disorder (principal); G93.40 Encephalopathy, unspecified; B37.0 Candidal stomatitis; I42.0 Dilated cardiomyopathy; I48.91 Unspecified atrial fibrillation; I50.9 Heart failure, unspecified; I11.0 Hypertensive heart disease with heart failure; J44.9 Chronic obstructive pulmonary disease, unspecified; F02.80 Dementia in other diseases classified elsewhere, unspecified severity, without behavioral disturbance, psychotic disturbance, mood disturbance, and anxiety; I25.10 Atherosclerotic heart disease of native coronary artery without angina pectoris; E78.00 Pure hypercholesterolemia, unspecified; R56.9 Unspecified convulsions; E87.6 Hypokalemia; Z95.810 Presence of automatic (implantable) cardiac defibrillator; Z51.5 Encounter for palliative care; Z79.52 Long term (current) use of systemic steroids; Z79.82 Long term (current) use of aspirin